=== PATIENT | female | born 1950 | race Caucasian/White ===

== ENCOUNTER 2020-02-11 08:54 | Outpatient (REF) | payer MEDICARE, SELFPAY | END 2020-02-11 08:55 | disposition home or self-care (01) | LOC: HO.MDS 08:54 | PROVIDERS: PCP Family Medicine; Visit Provider Hospitalist | DX: D80.1 Nonfamilial hypogammaglobulinemia (principal) | CPT/HCPCS: 96365; 96366; J1561 ==

== ENCOUNTER 2020-03-01 15:45 | Outpatient (REF) | payer MEDICARE, SELFPAY | END 2020-03-01 15:46 | disposition home or self-care (01) | LOC: HO.LAB 15:45 | PROVIDERS: PCP Family Medicine; Visit Provider Internal Medicine | DX: Z20.828 Contact with and (suspected) exposure to other viral communicable diseases (principal) | CPT/HCPCS: 87635 ==

== ENCOUNTER 2020-03-04 11:43 | Outpatient (REF) | payer MEDICARE, SELFPAY | END 2020-03-04 11:44 | disposition home or self-care (01) | LOC: HO.MDS 11:43 | PROVIDERS: PCP Family Medicine; Visit Provider Hospitalist | DX: D80.1 Nonfamilial hypogammaglobulinemia (principal) | CPT/HCPCS: 96365; 96366; J1561 ==

== ENCOUNTER 2020-03-24 08:39 | Outpatient (REF) | payer MEDICARE, SELFPAY | END 2020-03-24 08:40 | disposition home or self-care (01) | LOC: HO.MDS 08:39 | PROVIDERS: PCP Family Medicine; Visit Provider Hospitalist | DX: D80.1 Nonfamilial hypogammaglobulinemia (principal) | CPT/HCPCS: 96365; 96366; J1561 ==

== ENCOUNTER 2020-04-08 20:08 | Inpatient (IN) | payer MEDICARE, SELFPAY ==
[2020-04-08 20:35] VITALS: BP 142/65; PULSE 94; RESP 18; TEMP 39; O2SAT 92; BMI 42.9
--- NOTE | 2020-04-08 21:01 | ECG_ITS ---
Test Reason : FLU LIKE SYMPTOMS Blood Pressure : / mmHG Vent. Rate : 095 BPM Atrial Rate : 095 BPM P-R Int : 140 ms QRS Dur : 074 ms QT Int : 350 ms P-R-T Axes : 043 -11 033 degrees QTc Int : 439 ms Normal sinus rhythm Possible Left atrial enlargement Borderline ECG When compared with ECG of 06-JUN-2010 15:45, No significant change was found Referred By: Sharron Membreno Electronically Signed By:FOUZIA PITTS MD
--- NOTE | 2020-04-08 21:01 | XR_ITS ---
EXAMINATION: XR CHEST CLINICAL INFORMATION: Shortness of breath COMPARISON: Chest x-ray 06/06/2010 TECHNIQUE: Frontal view of the chest was obtained. 9:07 PM FINDINGS: There is a region of irregular focal parenchymal airspace opacity in the right upper lobe. Possible peripheral small infiltrate near the right cuspid angle. There is a small subtle airspace opacity in the left lung near the left lung apex. There are no large pleural effusions. There is no pulmonary vascular congestion. XR/XR chest 1V IMPRESSION: Multifocal airspace opacities bilateral. Findings suspicious of pneumonia including Covid 19.
--- NOTE | 2020-04-08 21:13 | ED.FEVER ---
HPI - Fever General Chief Complaint: Fever Stated Complaint: Flu like symptpoms Time Seen by Provider: 04/08/20 20:59 Source: patient Mode of arrival: ambulatory Limitations: no limitations History of Present Illness HPI Narrative: This is a 69-year-old female who has a significant past medical history of immunodeficiency and receives gammaglobulin weekly who presents with 3-4 days of intermittent fevers with a T-max of 103? that she states has been responsive to Tylenol but recurs, this is also been associated with increasing shortness of breath to the point that yesterday she was becoming short of breath just walking to the bathroom. She denies any recent productive cough with increase of sputum, denies any GI symptoms or symptoms and states that her oxygen at home is typically 96-98% ( she is a known COPD patient). In addition, she states that she has not had a pneumonia for 5-6 years. of note, patient has been tested negative for COVID-19 on 12/21, 03/01. Related Data Home Medications Medication Instructions Recorded Confirmed celecoxib 1 cap PO DAILY 04/08/20 04/08/20 immune globul G-gly-IgA avg 46 See Rx Instructions .ROUTE .COMPLEX 04/08/20 04/08/20 [Gamunex-C] omeprazole 1 cap PO DAILY 04/08/20 04/08/20 Previous Rx's Medication Instructions Recorded atenolol 25 mg tablet 25 mg PO DAILY 90 Days #90 tab 02/18/20 hydrochlorothiazide 25 mg tablet 25 mg PO DAILY 90 Days #90 tab 02/18/20 Allergies Allergy/AdvReac Type Severity Reaction Status Date / Time cephalexin [Keflex] Allergy Unknown anaphylaxis Unverified 11/06/19 00:00 glycine [From GAMMAGARD S/D] Allergy Unknown WEAKNESS Unverified 01/22/20 15:15 IgA less than or equal to 50 Allergy Unknown WEAKNESS Unverified 01/22/20 15:15 mcg/mL [From GAMMAGARD S/D] immune globulin,gamma (IgG) Allergy Unknown WEAKNESS Unverified 01/22/20 15:15 human [From GAMMAGARD S/D] Penicillins [PENICILLINS] AdvReac Unknown DIARRHEA Unverified 01/22/20 15:15 From KEFLEX Allergy Unknown ANAPHYLAXIS Uncoded 01/22/20 15:15 GAMAGUARD Allergy Unknown Uncoded 10/31/19 00:00 Review of Systems Review of Systems: Pertinent positives and negatives as stated in HPI and 10 point review of systems is otherwise negative. [facility] Past Medical History Source: nursing notes reviewed Medical History (Updated 04/09/20 @ 01:31 by Syed Arambula MD) COPD (chronic obstructive pulmonary disease) Hypertension Social History Social History Smoked in Last 30 Days: No Use of substances other than those prescribed or required for medical reasons: No Advance Directives: No Advance Directives Information Provided: Yes Physical Exam Vital Signs: Vital Signs: Last Vital Signs Temp 99.9 F 04/09/20 01:00 Pulse 86 04/09/20 01:00 Resp 19 04/09/20 01:00 BP 125/56 L 04/09/20 01:00 Pulse Ox 97 04/09/20 01:00 Body Mass Index 42.9 VITAL SIGNS: Reviewed. GENERAL: Well developed, well nourished, in no acute distress. HEAD: Normocephalic/atraumatic, EYES: PERRLA, EOMI intact without pain, no nystagmus/pallor/icterus noted EARS: Ext canals without abnormality, TMs non-bulging and non-erythematous NOSE: Nares patent bilateral OROPHARYNX: no oral lesions noted, posterior pharynx clear and non-erythematous without noted tonsillar enlargement/erythema/exudates NECK: Supple, no adenopathy LUNGS: + adventitious sounds , no tachypnea or accessory muscle use. SpO2<92> CARDIOVASCULAR: Regular rate and rhythm without noted murmurs, no JVD or lower extremity edema. ABDOMEN: Soft, non-tender, non-distended with bowel sounds. No rigidity. No guarding. No palpable masses or hernias noted MUSCULOSKELETAL: No tenderness, deformities, or effusions noted on gross inspection. EXTREMITIES: No cyanosis, clubbing or edema. SKIN: Inspection of the skin reveals no rashes, ulcerations, jaundice, pallor, or petechiae. NEUROLOGIC: Alert and oriented x 4. Strength and sensation to light touch were grossly intact x 4. Course Course Course Narrative: This is a 69-year-old female with history and clinical presentation significant for immune deficiency requiring immune globulin therapy and suspect that this patient has either viral or bacterial pneumonia with observed hypoxia in relation to her baseline. Patient is currently meeting sepsis criteria and will be treated with blood cultures, lactic acid, antibiotics, but does not qualify for IV fluids at this time. on review of all investigations patient's SIRS response is most consistent with viral as there is a positive COVID-19 test and chest x-ray results which are consistent with COVID-19 infection. Otherwise, urinalysis is negative under no acute findings on chemistries. This case was discussed with the inpatient hospitalist team who is agreeable for admission. MDM - Fever Lab Data Result diagrams: 04/08/20 21:39 04/08/20 21:39 Labs: Lab Results 04/08/20 04/08/20 04/08/20 Range/Units 21:38 21:39 21:39 WBC 5.9 (4.8-10.8) X10*3/uL RBC 5.20 (4.20-5.50) X10*6/uL Hgb 13.1 (12.0-16.0) g/dl Hct 42.8 (37-47) % MCV 82.3 (80-98) fL MCH 25.2 L (27.0-33.0) pg MCHC 30.6 L (31.0-35.0) g/dl RDW 15.4 (11.0-16.0) % Plt Count 216 (160-400) X10*3/uL MPV 9.6 (9.4-12.3) fL Immature Gran % (Auto) 0.3 (0.0-0.4) % Neut % (Auto) 66.6 (45-73) % Lymph % (Auto) 26.6 (20-40) % [place] % (Auto) 6.3 (2-11) % Eos % (Auto) 0.0 (0-4) % Baso % (Auto) 0.2 (0-2) % Lymph # (Auto) 1.6 (1.2-4.9) X10*3/uL [place] # (Auto) 0.4 (0.1-1.2) X10*3/uL Eos # (Auto) 0.0 (0.0-0.4) X10*3/uL Baso # (Auto) 0.0 (0.0-0.2) X10*3/uL Abs Immat Gran (auto) 0.02 (0.00-0.03) X10*3/uL Absolute Neuts (auto) 3.9 (2.0-8.3) X10*3/uL Absolute Nucleated RBC 0.000 (0.0-0.012) X10*3/uL Nucleated RBC % (auto) 0.0 (0.0-0.2) /100WBC Sodium 140 (135-145) mmol/L Potassium 3.7 (3.3-5.1) mmol/l Chloride 98 (96-108) mmol/L Carbon Dioxide 29 (22-29) mmol/L Anion Gap 17 (12-20) BUN 22 H (9-16) mg/dL Creatinine 0.84 (0.5-1.4) mg/dL Estim Creat Clear Calc 79.1 Estimated GFR > 60 Random Glucose 109 (60-115) mg/dL Lactic Acid 1.8 (0.5-2.0) mmol/L Calcium 8.6 (8.4-10.2) mg/dL Total Bilirubin 1.2 H (0.0-1.0) mg/dL AST 19 (5-31) U/L ALT 29 (0-31) U/L Alkaline Phosphatase 106 (39-117) U/L Lactate Dehydrogenase 250 H (122-220) U/L C-Reactive Protein 4.86 H (< or = 0.50) mg/dL Total Protein 7.1 (6.5-8.0) g/dL Albumin 4.2 (3.5-5.0) g/dL Procalcitonin ng/mL Urine Color Urine Appearance Urine pH (5.0-8.0) Ur Specific [place] (1.005-1.025) Urine Protein (NEG-TRACE) MG/DL Urine Glucose (UA) (NEG) MG/DL Urine Ketones (NEG) MG/DL Urine Blood (NEG) Urine Nitrite (NEG) Ur Leukocyte Esterase (NEG) Coronavirus (PCR) (Negative) Influenza Type A (PCR) (Negative) Influenza Type B (PCR) (Negative) RSV RNA Qual (PCR) (Negative) 04/08/20 04/08/20 04/08/20 Range/Units 21:39 21:39 22:45 WBC (4.8-10.8) X10*3/uL RBC (4.20-5.50) X10*6/uL Hgb (12.0-16.0) g/dl Hct (37-47) % MCV (80-98) fL MCH (27.0-33.0) pg MCHC (31.0-35.0) g/dl RDW (11.0-16.0) % Plt Count (160-400) X10*3/uL MPV (9.4-12.3) fL Immature Gran % (Auto) (0.0-0.4) % Neut % (Auto) (45-73) % Lymph % (Auto) (20-40) % [place] % (Auto) (2-11) % Eos % (Auto) (0-4) % Baso % (Auto) (0-2) % Lymph # (Auto) (1.2-4.9) X10*3/uL [place] # (Auto) (0.1-1.2) X10*3/uL Eos # (Auto) (0.0-0.4) X10*3/uL Baso # (Auto) (0.0-0.2) X10*3/uL Abs Immat Gran (auto) (0.00-0.03) X10*3/uL Absolute Neuts (auto) (2.0-8.3) X10*3/uL Absolute Nucleated RBC (0.0-0.012) X10*3/uL Nucleated RBC % (auto) (0.0-0.2) /100WBC Sodium (135-145) mmol/L Potassium (3.3-5.1) mmol/l Chloride (96-108) mmol/L Carbon Dioxide (22-29) mmol/L Anion Gap (12-20) BUN (9-16) mg/dL Creatinine (0.5-1.4) mg/dL Estim Creat Clear Calc Estimated GFR Random Glucose (60-115) mg/dL Lactic Acid (0.5-2.0) mmol/L Calcium (8.4-10.2) mg/dL Total Bilirubin (0.0-1.0) mg/dL AST (5-31) U/L ALT (0-31) U/L Alkaline Phosphatase (39-117) U/L Lactate Dehydrogenase (122-220) U/L C-Reactive Protein (< or = 0.50) mg/dL Total Protein (6.5-8.0) g/dL Albumin (3.5-5.0) g/dL Procalcitonin 0.03 ng/mL Urine Color YELLOW Urine Appearance CLEAR Urine pH 6.0 (5.0-8.0) Ur Specific [place] 1.020 (1.005-1.025) Urine Protein NEG (NEG-TRACE) MG/DL Urine Glucose (UA) NEG (NEG) MG/DL Urine Ketones NEG (NEG) MG/DL Urine Blood NEG (NEG) Urine Nitrite NEG (NEG) Ur Leukocyte Esterase NEG (NEG) Coronavirus (PCR) POSITIVE A (Negative) Influenza Type A (PCR) NEGATIVE (Negative) Influenza Type B (PCR) NEGATIVE (Negative) RSV RNA Qual (PCR) NEGATIVE (Negative) ECG Data ECG #1: Attestation: I personally reviewed and interpreted this ECG as follows: Prior ECG tracings: not available for review Interpretation: Normal sinus rhythm, HR -95, no evidence of acute ischemia, HI/QRS/QTC are within normal limits. Discharge Plan Discharge Clinical Impression: Pneumonia due to COVID-19 virus, Hypoxia Patient Disposition: Admitted As Inpatient
[2020-04-08 21:49] LABS: Basophils Percent Auto 0.2 % (0-2); Hematocrit 42.8 % (37-47); Hemoglobin 13.1 g/dl (12.0-16.0); Imm Gran Abs Auto 0.02 X10*3/uL (0.00-0.03); Imm Gran Pct Auto 0.3 % (0.0-0.4); Lymphocytes Absolute Auto 1.6 X10*3/uL (1.2-4.9); Lymphocytes Percent Auto 26.6 % (20-40); Mean Corpuscular HGB Conc 30.6 g/dl (31.0-35.0); Mean Corpuscular Hemoglobin 25.2 pg (27.0-33.0); Mean Corpuscular Volume 82.3 fL (80-98); Mean Platelet Volume 9.6 fL (9.4-12.3); Monocytes Absolute Auto 0.4 X10*3/uL (0.1-1.2); Monocytes Percent Auto 6.3 % (2-11); Neutrophils Absolute Auto 3.9 X10*3/uL (2.0-8.3); Neutrophils Percent Auto 66.6 % (45-73); Platelet Count 216 X10*3/uL (160-400); Red Cell Distribution Width 15.4 % (11.0-16.0); White Blood Count 5.9 X10*3/uL (4.8-10.8)
[2020-04-08 21:50] LABS: MANUAL DIFF FLAG NO
[2020-04-08] MEDS: levoFLOXacin/D5W 750 MG/150 ML PIGGYBACK 100 MG IV (21:54)
[2020-04-08] MEDS: Acetaminophen 325 MG TABLET 975 MG PO (21:54)
[2020-04-08 22:00] VITALS: BP 154/72; PULSE 100; RESP 16; TEMP 38.9; O2SAT 94
[2020-04-08 22:06] LABS: Lactic Acid 1.8 mmol/L (0.5-2.0)
[2020-04-08 22:12] LABS: Alanine Aminotransferase 29 U/L (0-31); Albumin Level 4.2 g/dL (3.5-5.0); Alkaline Phosphatase 106 U/L (39-117); Anion Gap 17 (12-20); Aspartate Amino Transferase 19 U/L (5-31); Bilirubin Total 1.2 mg/dL (0.0-1.0); Blood Urea Nitrogen 22 mg/dL (9-16); Calcium 8.6 mg/dL (8.4-10.2); Carbon Dioxide 29 mmol/L (22-29); Chloride 98 mmol/L (96-108); Creatinine Clr Calc Pharmacy 79.1; Estimated Glomerular Filt Rate > 60; Glucose Random 109 mg/dL (60-115); Potassium 3.7 mmol/l (3.3-5.1); Sodium 140 mmol/L (135-145); Total Protein 7.1 g/dL (6.5-8.0)
[2020-04-08 22:26] LABS: Influenza A PCR NEGATIVE (Negative); Influenza B PCR NEGATIVE (Negative); Resp Syncy Virus RNA Qual PCR NEGATIVE (Negative); SARS COV2 PCR INHOUSE POSITIVE (Negative)
[2020-04-08 22:57] LABS: Glucose Urine UA NEG (NEG); Leukocyte Esterase Urine NEG (NEG); Nitrite Urine NEG (NEG); Urine Blood NEG (NEG); Urine Ketones NEG (NEG); Urine Protein NEG (NEG-TRACE)
[2020-04-08 23:07] LABS: Appearance Urine CLEAR; Color Urine YELLOW
[2020-04-09] VITALS (11 sets, daily range): BP systolic 110–149; BP diastolic 40–69; PULSE 63–93; RESP 15–19; TEMP 36.8–39.5; O2SAT 91–97; BMI 42.9
[2020-04-09 00:29] LABS: C Reactive Protein 4.86 mg/dL (< or = 0.50); Lactate Dehydrogenase 250 U/L (122-220)
[2020-04-09 00:53] LABS: Procalcitonin 0.03 ng/mL
--- NOTE | 2020-04-09 01:23 | P.HPHOSP_ITS ---
History of Present Illness Date of Service: 04/09/20 Chief Complaint: Malaise 69 y/o female with PMHX of HTN. GERD and Aganmaglobulinemia who presented from home given feeling Malaise . Per history provided by the patient, for the past 2 days has been feeling not like herself with on and off episodes of fever and chills, reporting drenching sweats at night . Patient denies any chest pain, SOB, nasuea or vomiting. Has a PMHX of agamflobulinemia and has been getting infusion shots of Gamunex (Last time 1 week ago, due next sunday). On presentation to the ED patient was found to be saturating 90-91% on room air, 2 episodes of 102.1 fever, elevated CRP and LDH, Covid 19 infection positive. CXR Bilateral opacities concerning for covid pneumonia. Pateint was given one dose of Levaquin per ED and decision for admission was given. Patient was seen and evaluated at the bedside, laying down in bed in no acute distress. ROS as above otherwise negative. Physical exam unremarkable. PMHX: HTN, GERD, Agammaglobulinemia PSx: none Toxic habits: No hx of alcohol abuse, smoking or IVDA Review of Systems Constitutional: Constitutional: Reports as per [facility] Medical History COPD (chronic obstructive pulmonary disease) Hypertension Functional capacity: independent ambulation Social History Smoked in Last 30 Days: No Use of substances other than those prescribed or required for medical reasons: No Advance Directives: No Advance Directives Information Provided: Yes Meds Allergies Allergy/AdvReac Type Severity Reaction Status Date / Time cephalexin [Keflex] Allergy Unknown anaphylaxis Unverified 11/06/19 00:00 glycine [From GAMMAGARD S/D] Allergy Unknown WEAKNESS Unverified 01/22/20 15:15 IgA less than or equal to 50 Allergy Unknown WEAKNESS Unverified 01/22/20 15:15 mcg/mL [From GAMMAGARD S/D] immune globulin,gamma (IgG) Allergy Unknown WEAKNESS Unverified 01/22/20 15:15 human [From GAMMAGARD S/D] Penicillins [PENICILLINS] AdvReac Unknown DIARRHEA Unverified 01/22/20 15:15 From KEFLEX Allergy Unknown ANAPHYLAXIS Uncoded 01/22/20 15:15 GAMAGUARD Allergy Unknown Uncoded 10/31/19 00:00 Home Medications Medication Instructions Recorded Confirmed Type celecoxib 1 cap PO DAILY 04/08/20 04/08/20 History immune globul G-gly-IgA avg 46 See Rx Instructions .ROUTE .COMPLEX 04/08/20 04/08/20 History [Gamunex-C] omeprazole 1 cap PO DAILY 04/08/20 04/08/20 History Physical Exam Vital Signs and Narrative: Vital Signs: Last Vital Signs Temp 99.9 F 04/09/20 01:00 Pulse 86 04/09/20 01:00 Resp 19 04/09/20 01:00 BP 125/56 L 04/09/20 01:00 Pulse Ox 97 04/09/20 01:00 Body Mass Index 42.9 Const: General: cooperative, comfortable and no acute distress Orientation/consciousness: oriented to person, oriented to place and oriented to time HENMT: Head: Yes normal to inspection Eyes: General: appearance normal, both eyes and all related structures Neck: Yes normal visual inspection Chest: Chest palpation & inspection: normal inspection of the chest Resp: Effort & Inspection: normal respiratory effort Auscultation: clear to auscultation bilaterally Cardio: Jugular venous distension: no JVD Rate: regular rate Rhythm: regular rhythm Heart sounds: S1 normal heart sound present and S2 normal heart sound present GI: Inspection: Yes normal to inspection Skin: General skin exam: no rashes or lesions noted Neuro: General: oriented to person, oriented to place and oriented to time Cognition (Neuro): normal cognition Results Labs CBC and Chem 7: 04/08/20 21:39 04/08/20 21:39 Labs: Laboratory Results - last 24 hr 04/08/20 04/08/20 04/08/20 21:38 21:39 21:39 MCV 82.3 MCH 25.2 L MCHC 30.6 L RDW 15.4 Plt Count 216 MPV 9.6 Immature Gran % (Auto) 0.3 Neut % (Auto) 66.6 Lymph % (Auto) 26.6 [place] % (Auto) 6.3 Eos % (Auto) 0.0 Baso % (Auto) 0.2 Lymph # (Auto) 1.6 [place] # (Auto) 0.4 Eos # (Auto) 0.0 Baso # (Auto) 0.0 Abs Immat Gran (auto) 0.02 Absolute Neuts (auto) 3.9 Absolute Nucleated RBC 0.000 Nucleated RBC % (auto) 0.0 Anion Gap 17 Estim Creat Clear Calc 79.1 Estimated GFR > 60 Random Glucose 109 Lactic Acid 1.8 Calcium 8.6 Total Bilirubin 1.2 H AST 19 ALT 29 Alkaline Phosphatase 106 Lactate Dehydrogenase 250 H C-Reactive Protein 4.86 H Total Protein 7.1 Albumin 4.2 Procalcitonin Urine Color Urine Appearance Urine pH Ur Specific [place] Urine Protein Urine Glucose (UA) Urine Ketones Urine Blood Urine Nitrite Ur Leukocyte Esterase Coronavirus (PCR) Influenza Type A (PCR) Influenza Type B (PCR) RSV RNA Qual (PCR) 04/08/20 04/08/20 04/08/20 21:39 21:39 22:45 MCV MCH MCHC RDW Plt Count MPV Immature Gran % (Auto) Neut % (Auto) Lymph % (Auto) [place] % (Auto) Eos % (Auto) Baso % (Auto) Lymph # (Auto) [place] # (Auto) Eos # (Auto) Baso # (Auto) Abs Immat Gran (auto) Absolute Neuts (auto) Absolute Nucleated RBC Nucleated RBC % (auto) Anion Gap Estim Creat Clear Calc Estimated GFR Random Glucose Lactic Acid Calcium Total Bilirubin AST ALT Alkaline Phosphatase Lactate Dehydrogenase C-Reactive Protein Total Protein Albumin Procalcitonin 0.03 Urine Color YELLOW Urine Appearance CLEAR Urine pH 6.0 Ur Specific [place] 1.020 Urine Protein NEG Urine Glucose (UA) NEG Urine Ketones NEG Urine Blood NEG Urine Nitrite NEG Ur Leukocyte Esterase NEG Coronavirus (PCR) POSITIVE A Influenza Type A (PCR) NEGATIVE Influenza Type B (PCR) NEGATIVE RSV RNA Qual (PCR) NEGATIVE Imaging Radiologist's Impressions: Impressions Chest X-Ray 04/08/20 21:01 IMPRESSION: Multifocal airspace opacities bilateral. Findings suspicious of pneumonia including Covid 19. Assessment and Plan (1) Pneumonia due to COVID-19 virus: Status: Acute Isolation IMC Continue with Levaquin as ordered for gram neg coverage. Monitor EKG for QTc. Follow up Respiratory panel Follow up Bcx O2 therapy and titrate off as tolerated Infectious disease consult in the am (2) Hypoxia: Status: Acute plan as above (3) Hypertension: Status: Acute continue with home BP meds (4) GERD (gastroesophageal reflux disease): Status: Acute continue with PPI home dose (5) Agammaglobulinemia: Status: Acute Infusion due next sunday
[2020-04-09] MEDS: Heparin Sodium,Porcine 5,000 UNIT/ML VIAL 5000 UNIT SUBCUT ×3 (03:10→19:59)
[2020-04-09 03:40] LABS: Adenovirus PCR Not Detected (Not Detect.); Bordetella parapertussis PCR Not Detected (Not Detect.); Bordetella pertussis PCR Not Detected (Not Detect.); Chlamydia pneumoniae PCR Not Detected (Not Detect.); Coronavirus 229E PCR Not Detected (Not Detect.); Coronavirus HKU1 PCR Not Detected (Not Detect.); Coronavirus NL63 PCR Not Detected (Not Detect.); Coronavirus OC43 PCR Not Detected (Not Detect.); Human metapneumovirus PCR Not Detected (Not Detect.); Influenza A PCR Not Detected (Not Detect.); Influenza B PCR Not Detected (Not Detect.); Mycoplasma pneumoniae PCR Not Detected (Not Detect.); Parainfluenza 1 PCR Not Detected (Not Detect.); Parainfluenza 2 PCR Not Detected (Not Detect.); Parainfluenza 3 PCR Not Detected (Not Detect.); Parainfluenza 4 PCR Not Detected (Not Detect.); RSV PCR Not Detected (Not Detect.); Rhino/Enterovirus PCR Not Detected (Not Detect.)
[2020-04-09] MEDS: levoFLOXacin/D5W 500 MG/100 ML PIGGYBACK 100 MG IV (05:41)
[2020-04-09 05:46] LABS: MANUAL DIFF FLAG NO
[2020-04-09 06:02] LABS: Basophils Percent Auto 0.2 % (0-2); Hematocrit 44.3 % (37-47); Hemoglobin 13.5 g/dl (12.0-16.0); Imm Gran Abs Auto 0.02 X10*3/uL (0.00-0.03); Imm Gran Pct Auto 0.3 % (0.0-0.4); Lymphocytes Absolute Auto 1.7 X10*3/uL (1.2-4.9); Lymphocytes Percent Auto 29.5 % (20-40); Mean Corpuscular HGB Conc 30.5 g/dl (31.0-35.0); Mean Corpuscular Hemoglobin 24.9 pg (27.0-33.0); Mean Corpuscular Volume 81.7 fL (80-98); Mean Platelet Volume 9.4 fL (9.4-12.3); Monocytes Absolute Auto 0.5 X10*3/uL (0.1-1.2); Monocytes Percent Auto 9.1 % (2-11); Neutrophils Absolute Auto 3.5 X10*3/uL (2.0-8.3); Neutrophils Percent Auto 60.9 % (45-73); Platelet Count 229 X10*3/uL (160-400); Red Blood Count 5.42 X10*6/uL (4.20-5.50); Red Cell Distribution Width 15.4 % (11.0-16.0); White Blood Count 5.7 X10*3/uL (4.8-10.8)
[2020-04-09 06:26] LABS: Anion Gap 18 (12-20); Blood Urea Nitrogen 22 mg/dL (9-16); Calcium 8.5 mg/dL (8.4-10.2); Carbon Dioxide 27 mmol/L (22-29); Chloride 97 mmol/L (96-108); Estimated Glomerular Filt Rate > 60; Glucose Random 105 mg/dL (60-115); Sodium 138 mmol/L (135-145)
[2020-04-09] MEDS: 0.9 % Sodium Chloride Flush 3 ML SYRINGE IVFLUSH ×3 (07:36→23:21)
[2020-04-09] MEDS: Acetaminophen 325 MG TABLET 650 MG PO ×2 (07:36→18:38)
[2020-04-09] MEDS: atenoloL 25 MG TABLET PO (08:02)
[2020-04-09] MEDS: Celecoxib 200 MG CAPSULE PO (08:02)
[2020-04-09] MEDS: hydroCHLOROthiazide 25 MG TABLET PO (08:02)
[2020-04-09] MEDS: Omeprazole 40 MG CAPSULE.DR PO (08:03)
--- NOTE | 2020-04-09 09:45 | PM.EVENT ---
Event Note Date of Service: 04/09/20 Event Note: Patient seen and examined. 69/F with covid associated wth viral sepsis and pneumonia, remains febrile but no hypoxia. Plan:Empirc levaquin. Tyelenol for fever. Dexamethasone if requires oxygen, anticipate home soon.
--- NOTE | 2020-04-09 09:50 | MHC.CDI.CONC ---
CDI Concurrent Query Service Date: 04/09/20 Documentation Clarification: Please clarify if you are treating a probable/suspected/likely or confirmed: Viral Sepsis due to COVID 19 No Viral Sepsis PLEASE DO NOT DELETE/MODIFY EXISTING CONTENT Additional information is needed in order to code to the highest accuracy and appropriate Severity of Illness (SOI). Please clarify the information noted below in your progress notes and discharge summary. Risk Factors/Clinical Indicators/Treatments 69 year old female admitted with fever, flu like symptoms, SOB, SAT 90-91% room air T102.1, P 100, RR 16-19, BP 125/56 LA 1.8 WBC 5.9 Diagnosis Pneumonia due to COVID 19, Hypoxia per H&P CDS: Keena Merlos RN Contact Number: [phone] Please Review the information above and exercise your independent professional judgment in responding to the query. If you concur, pleas document in the PROGRESS NOTES and DISCHARGE SUMMARY. If you do not agree with the query, please document in the query above. THIS QUERY IS PART OF THE PERMANENT MEDICAL RECORD
[2020-04-09 11:12] LABS: SARS-CoV-2 PCR Detected (Not Detect.)
--- NOTE | 2020-04-09 16:05 | MHC.CM.PN ---
Attempted to meet with patient in regards to d/c planning. Patient in the process of receiving nursing care. Spoke with patient's , Alen via telephone at [phone]. Patient lives with Alen, ambulates independently and had no services prior to coming to the hospital. PCP verified. Alen believes he has a copy of patient's HCP. IMM explained and sent via certified mail. Patient is Covid positive. Patient was tested for Covid today. He doesn't anticipate getting his results for about a week. Physical therapy eval may be necessary for home safety when medically stable. Continue to monitor for d/c needs.
[2020-04-09] MEDS: Ibuprofen 600 MG TABLET PO (22:15)
--- NOTE | 2020-04-09 22:39 | PC.NURSE ---
Alert and oriented x 4, febrile the whole shift with some chills. Lung sounds diminished all throughout, sats in the low to mid 90s while in room air. Voided clear yellow urine. She received Tylenol at 1836, temperature rechecked after an hour and it was down to 101.2. Temperature randomly rechecked at past 9pm and it was 103.1, cold packs and ice cold cloth to forehead applied, she refused to have a cold wash on her body. Paged Dr. Wilson, ordered for Ibuprofen. Temperature went down to 102.5 after the said intervention prior to giving Ibuprofen. Patient resting comfortably in bed. Needs were attended. Will continue care plan.
[2020-04-10] VITALS (9 sets, daily range): BP systolic 110–133; BP diastolic 41–58; PULSE 66–100; RESP 14–20; TEMP 36.1–38.8; O2SAT 90–93
[2020-04-10] MEDS: Acetaminophen 325 MG TABLET 650 MG PO (00:08)
[2020-04-10] MEDS: Heparin Sodium,Porcine 5,000 UNIT/ML VIAL 5000 UNIT SUBCUT ×3 (02:43→16:58)
[2020-04-10] MEDS: levoFLOXacin/D5W 500 MG/100 ML PIGGYBACK 100 MG IV (05:26)
--- NOTE | 2020-04-10 06:36 | PC.NURSE ---
CARE ASSUMED 23;15...AWAKE..ALERT..ORIENTED X3....RESPIRATIONS EASY AT REST...SAO2 89-92% ROOM AIR...ASYMPTOMATIC...MILDLY NEVES...DECLINES SUPPLEMENTAL O2...OOB TO BEDSIDE COMMODE STEADY GAIT...DENIES/OFFERS NO COMPLAINTS OVERNIGHT...PRN TYLENOL HS FOR TEMP PER REQUEST
--- NOTE | 2020-04-10 09:07 | HO.PM.IMPN ---
Subjective Subjective Date of Service: 04/10/20 Interval History: Seen in follow-up for acute COVID illness associated with pneumonia and fever. She feels better although she continued to be having intermittent fevers of up to 101. She denies shortness of breath, oxygen saturation has been borderline presently around 90% on room alcohol though it has been reported that he had she has had occasion were oxygen saturation has dropped below 90. Review of Systems Gen: +fever Resp: no sob, +cough CV: no chest, no NEVES, no leg edema Neuro: No confusion Physical Exam Vital Signs: Vital Signs: Last Vital Signs Temp 101.8 F H 04/10/20 05:00 Pulse 93 04/10/20 08:00 Resp 18 04/10/20 08:00 BP 119/41 L 04/10/20 05:00 Pulse Ox 90 L 04/10/20 05:00 Body Mass Index 42.9 Const: General: comfortable Nutritional Appearance: obese Orientation/consciousness: patient oriented x3 Resp: Auscultation: other (normal respiratory effort) Skin: General skin exam: no rashes or lesions noted Neuro: General: patient oriented x3 Cranial nerves: Yes Other cranial nerve findings present (no focal finding) Psych: Other: normal affect Objective Data Current Medications Generic Name Dose Route Start Last Admin Trade Name Freq PRN Reason Stop Dose Admin Acetaminophen 650 mg 04/09/20 18:22 04/10/20 00:08 Acetaminophen 325 Mg Tablet PO 650 mg Q6H PRN Administration Pain, Mild (Pain Scale 1-3) Atenolol 25 mg 04/09/20 09:00 04/09/20 08:02 Atenolol 25 Mg Tablet PO 25 mg DAILY CHARAN Administration Protocol Celecoxib 200 mg 04/09/20 09:00 04/09/20 08:02 Celecoxib 200 Mg Capsule PO 200 mg DAILY CHARAN Administration Dexamethasone 8 mg 04/10/20 07:30 Dexamethasone 2 Mg Tablet PO 04/10/20 07:31 DAILY ONE Heparin Sodium (Porcine) 5,000 unit 04/09/20 02:23 04/10/20 02:43 Heparin Sodium,Porcine 5,000 Unit/Ml Vial SUBCUT 5,000 unit Q8H CHARAN Administration Hydrochlorothiazide 25 mg 04/09/20 09:00 04/09/20 08:02 Hydrochlorothiazide 25 Mg Tablet PO 25 mg DAILY CHARAN Administration Protocol Levofloxacin 500 mg in 100 mls @ 100 mls/hr 04/09/20 06:00 04/10/20 06:44 Levaquin IV Infused Q24H [facility] Infusion Non-Formulary Medication 0 % 04/09/20 01:30 Immune Globul G-Gly-Iga Avg 46 [Gamunex-C] IV .COMPLEX [facility] Omeprazole 40 mg 04/09/20 09:00 04/09/20 08:03 Omeprazole 40 Mg Capsule.Dr PO 40 mg DAILY [facility] Administration Sodium Chloride 3 ml 04/09/20 08:00 04/09/20 23:21 0.9 % Sodium Chloride Flush 3 Ml Syringe IVFLUSH 3 ml QSHIFT [facility] Administration Labs CBC & Chem 7: 04/09/20 05:38 04/09/20 05:38 Microbiology Microbiology Results: Microbiology 04/08/20 21:55 Blood - Venous Blood Culture - Preliminary No growth after 24 hours. 04/08/20 21:39 Blood - Venous Blood Culture - Preliminary No growth after 24 hours. Assessment and Plan (1) Pneumonia due to COVID-19 virus: Status: Acute (2) Hypoxia: Status: Acute (3) Hypertension: Status: Acute (4) GERD (gastroesophageal reflux disease): Status: Acute (5) Agammaglobulinemia: Status: Acute Assessment and Plan: 69/F with agammaglobulinemia, GERD, class 3 obesity here with covid 19 pneumonia, hypoxia, and fever. 1. Acute hypoxic respiratory failure d/t covid 19 PNA-- clinically feel well, but persistent fever. - at dexamethasone 6 mg p.o. daily for total of 10 days. - Oxygen p.r.n. - continue Levaquin for possible superimposed bacterial pneumonia. - Tylenol or Motrin for fever. 2. GERD-- omeprazole 3. hypertension-- continue atenolol and hydrochlorothiazide 4. class 3 obesity -- encourage weight loss as morbid obesity may impact overall well-being And above diagnoses 5. agammaglobulinemia-- immunoglobulin infusion on Wednesdays. Heparin for DVT prophylaxis.
[2020-04-10] MEDS: hydroCHLOROthiazide 25 MG TABLET PO (10:00)
[2020-04-10] MEDS: atenoloL 25 MG TABLET PO (10:00)
[2020-04-10] MEDS: dexAMETHasone 6 MG TABLET PO (10:28)
[2020-04-10] MEDS: 0.9 % Sodium Chloride Flush 3 ML SYRINGE IVFLUSH ×3 (10:29→23:38)
[2020-04-10] MEDS: Omeprazole 40 MG CAPSULE.DR PO (10:29)
[2020-04-10] MEDS: Celecoxib 200 MG CAPSULE PO (10:29)
[2020-04-11] VITALS (7 sets, daily range): BP systolic 93–141; BP diastolic 40–65; PULSE 65–99; RESP 18–20; TEMP 36.9–39.6; O2SAT 94–98
[2020-04-11] MEDS: Heparin Sodium,Porcine 5,000 UNIT/ML VIAL 5000 UNIT SUBCUT ×3 (01:15→19:27)
[2020-04-11] MEDS: Acetaminophen 325 MG TABLET 650 MG PO ×2 (04:12→21:55)
[2020-04-11] MEDS: Omeprazole 40 MG CAPSULE.DR PO (08:22)
[2020-04-11] MEDS: atenoloL 25 MG TABLET PO (08:22)
[2020-04-11] MEDS: levoFLOXacin/D5W 500 MG/100 ML PIGGYBACK 100 MG IV (08:22)
[2020-04-11] MEDS: Celecoxib 200 MG CAPSULE PO (08:22)
[2020-04-11] MEDS: dexAMETHasone 6 MG TABLET PO (08:23)
[2020-04-11] MEDS: 0.9 % Sodium Chloride Flush 3 ML SYRINGE IVFLUSH ×3 (08:23→23:51)
[2020-04-11] MEDS: hydroCHLOROthiazide 25 MG TABLET PO (08:24)
--- NOTE | 2020-04-11 09:12 | P.PNIM_ITS ---
Subjective Subjective Date of Service: 04/11/20 Interval History: Seen in follow-up for acute COVID illness associated with pneumonia and fever. She feels better although she continued to be having intermittent fevers of up to 103. She denies shortness of breath, oxygen saturation is presently around 98% on room. She well in general. She states that under normal circumstances that she gets intermittent fever and take celebrex for that. Review of Systems Gen: +fever Resp: no sob, +cough CV: no chest, no NEVES, no leg edema Neuro: No confusion Constitutional Constitutional: Reports as per HPI Physical Exam Vital Signs: Vital Signs: Last Vital Signs Temp 103.2 F H 04/11/20 03:58 Pulse 99 04/11/20 03:58 Resp 20 04/11/20 03:58 BP 121/60 04/11/20 03:58 Pulse Ox 98 04/11/20 03:58 Body Mass Index 42.9 Const: General: comfortable Nutritional Appearance: obese Orientation/consciousness: patient oriented x3 Resp: Auscultation: other (normal respiratory effort) Skin: General skin exam: no rashes or lesions noted Neuro: General: patient oriented x3 Cranial nerves: Yes Other cranial nerve findings present (no focal finding) Psych: Other: normal affect Objective Data Current Medications Generic Name Dose Route Start Last Admin Trade Name Jeffreyq PRN Reason Stop Dose Admin Acetaminophen 650 mg 04/09/20 18:22 04/11/20 04:12 Acetaminophen 325 Mg Tablet PO 650 mg Q6H PRN Administration Pain, Mild (Pain Scale 1-3) Atenolol 25 mg 04/09/20 09:00 04/11/20 08:22 Atenolol 25 Mg Tablet PO 25 mg DAILY CHARAN Administration Protocol Celecoxib 200 mg 04/09/20 09:00 04/11/20 08:22 Celecoxib 200 Mg Capsule PO 200 mg DAILY CHARAN Administration Dexamethasone 6 mg 04/10/20 10:22 04/11/20 08:23 Dexamethasone 6 Mg Tablet PO 04/19/20 09:01 6 mg DAILY CHARAN Administration Heparin Sodium (Porcine) 5,000 unit 04/09/20 02:23 04/11/20 01:15 Heparin Sodium,Porcine 5,000 Unit/Ml Vial SUBCUT 5,000 unit Q8H CHARAN Administration Hydrochlorothiazide 25 mg 04/09/20 09:00 04/11/20 08:24 Hydrochlorothiazide 25 Mg Tablet PO 25 mg DAILY CHARAN Administration Protocol Levofloxacin 500 mg in 100 mls @ 100 mls/hr 04/09/20 06:00 04/11/20 08:22 Levaquin IV 100 mls/hr Q24H CHARAN Administration Omeprazole 40 mg 04/09/20 09:00 04/11/20 08:22 Omeprazole 40 Mg Capsule.Dr PO 40 mg DAILY CHARAN Administration Sodium Chloride 3 ml 04/09/20 08:00 04/11/20 08:23 0.9 % Sodium Chloride Flush 3 Ml Syringe IVFLUSH 3 ml QSHIFT CHARAN Administration Labs CBC & Chem 7: 04/09/20 05:38 04/09/20 05:38 Microbiology Microbiology Results: Microbiology 04/08/20 21:55 Blood - Venous Blood Culture - Preliminary No growth after 48 hours. 04/08/20 21:39 Blood - Venous Blood Culture - Preliminary No growth after 48 hours. Assessment and Plan (1) Pneumonia due to COVID-19 virus: Status: Acute (2) Hypoxia: Status: Acute (3) Hypertension: Status: Acute (4) GERD (gastroesophageal reflux disease): Status: Acute (5) Agammaglobulinemia: Status: Acute Assessment and Plan: 69/F with agammaglobulinemia, GERD, class 3 obesity here with covid 19 pneumonia, hypoxia, and fever. 1. Acute hypoxic respiratory failure d/t covid 19 PNA-- clinically feel well, b ut persistent fever. Oxygen saturation has improved. - Continue dexamethasone 6 mg p.o. daily for total of 10 days.D2/10 - Oxygen p.r.n., presently doesn't need it - continue Levaquin for possible superimposed bacterial pneumonia. - Tylenol or Motrin for fever. 2. GERD-- omeprazole 3. hypertension, BP is normal . continue atenolol and hydrochlorothiazide 4. class 3 obesity -- encourage weight loss as morbid obesity may impact overall well-being And above diagnoses 5. agammaglobulinemia-- immunoglobulin infusion on Wednesdays. Heparin for DVT prophylaxis.
[2020-04-11] MEDS: Ibuprofen 600 MG TABLET PO ×2 (09:30→23:51)
[2020-04-12] VITALS (7 sets, daily range): BP systolic 103–144; BP diastolic 53–84; PULSE 64–88; RESP 18; TEMP 36.1–38.1; O2SAT 92–94
[2020-04-12] MEDS: Heparin Sodium,Porcine 5,000 UNIT/ML VIAL 5000 UNIT SUBCUT ×3 (01:35→18:40)
[2020-04-12] MEDS: levoFLOXacin/D5W 500 MG/100 ML PIGGYBACK 100 MG IV (06:15)
[2020-04-12] MEDS: dexAMETHasone 6 MG TABLET PO (08:19)
[2020-04-12] MEDS: Acetaminophen 325 MG TABLET 650 MG PO (08:19)
[2020-04-12] MEDS: hydroCHLOROthiazide 25 MG TABLET PO (08:21)
[2020-04-12] MEDS: Omeprazole 40 MG CAPSULE.DR PO (08:21)
[2020-04-12] MEDS: atenoloL 25 MG TABLET PO (08:21)
[2020-04-12] MEDS: 0.9 % Sodium Chloride Flush 3 ML SYRINGE IVFLUSH ×2 (08:21→15:18)
[2020-04-12] MEDS: Celecoxib 200 MG CAPSULE PO (08:21)
--- NOTE | 2020-04-12 14:24 | HO.PM.IMPN ---
Subjective Subjective Date of Service: 04/12/20 Interval History: patient seen in follow-up for COVID-19 infection and high-grade fever, patient feeling better still with low-grade fever , no recurrent fever spikes since yesterday morning. Review of Systems General no headache, no dizziness CVS no chest pain, no palpitation. Respiratory no cough, no sputum production, no respiratory distress. Gastrointestinal no nausea no vomiting, no abdominal pain Physical Exam Vital Signs: Vital Signs: Last Vital Signs Temp 98.7 F 04/12/20 11:23 Pulse 88 04/12/20 11:23 Resp 18 04/12/20 11:23 BP 103/59 L 04/12/20 11:23 Pulse Ox 94 04/12/20 11:23 Body Mass Index 42.9 General no acute distress. Neck is supple no JVD. CVS regular rate rhythm, Respiratory lungs clear to auscultation, no respiratory distress, no wheeze, no rhonchi. Gastrointestinal abdomen soft, nontender, bowel sounds audible. Extremities no clubbing ,cyanosis or edema. Neuro nonfocal,speech clear. Skin no rash Objective Data Current Medications Generic Name Dose Route Start Last Admin Trade Name Freq PRN Reason Stop Dose Admin Acetaminophen 650 mg 04/09/20 18:22 04/12/20 08:19 Acetaminophen 325 Mg Tablet PO 650 mg Q6H PRN Administration Pain, Mild (Pain Scale 1-3) Atenolol 25 mg 04/09/20 09:00 04/12/20 08:21 Atenolol 25 Mg Tablet PO 25 mg DAILY CHARAN Administration Protocol Celecoxib 200 mg 04/09/20 09:00 04/12/20 08:21 Celecoxib 200 Mg Capsule PO 200 mg DAILY CHARAN Administration Dexamethasone 6 mg 04/10/20 10:22 04/12/20 08:19 Dexamethasone 6 Mg Tablet PO 04/19/20 09:01 6 mg DAILY CHARAN Administration Heparin Sodium (Porcine) 5,000 unit 04/09/20 02:23 04/12/20 08:22 Heparin Sodium,Porcine 5,000 Unit/Ml Vial SUBCUT 5,000 unit Q8H CHARAN Administration Hydrochlorothiazide 25 mg 04/09/20 09:00 04/12/20 08:21 Hydrochlorothiazide 25 Mg Tablet PO 25 mg DAILY CHARAN Administration Protocol Levofloxacin 500 mg in 100 mls @ 100 mls/hr 04/09/20 06:00 04/12/20 07:40 Levaquin IV Infused Q24H CHARAN Infusion Ibuprofen 600 mg 04/11/20 09:11 04/11/20 23:51 Ibuprofen 600 Mg Tablet PO 600 mg Q6H PRN Administration Fever Omeprazole 40 mg 04/09/20 09:00 04/12/20 08:21 Omeprazole 40 Mg Capsule. PO 40 mg DAILY CHARAN Administration Sodium Chloride 3 ml 04/09/20 08:00 04/12/20 08:21 0.9 % Sodium Chloride Flush 3 Ml Syringe IVFLUSH 3 ml QSHIFT CHARAN Administration Labs CBC & Chem 7: 04/09/20 05:38 04/09/20 05:38 Microbiology Microbiology Results: Microbiology 04/08/20 21:55 Blood - Venous Blood Culture - Preliminary No growth after 48 hours. 04/08/20 21:39 Blood - Venous Blood Culture - Preliminary No growth after 48 hours. Assessment and Plan (1) Agammaglobulinemia: Status: Acute (2) GERD (gastroesophageal reflux disease): Status: Acute (3) Hypertension: Status: Acute (4) Pneumonia due to COVID-19 virus: Status: Acute (5) Hypoxia: Status: Acute Assessment and Plan: 69/F with agammaglobulinemia, GERD, obesity here with covid 19 pneumonia, hypoxia, and fever. 1. Acute hypoxic respiratory failure d/t covid 19 PNA-- oxygenation improved currently on room air with stable oxygenation - Continue dexamethasone 6 mg p.o. daily for total of 10 days.D3/10 will transition to by mouth dexamethasone upon discharge - continue Levaquin for possible superimposed bacterial pneumonia. - patient had fever up to 103 yesterday morning will continue to monitor for high-grade fevers, patient has history of cyclic low-grade fevers ,continue supportive care with Tylenol/Motrin for fever. if no further fever spikes in next 24 hours will discharge home. Encourage ambulation. 2. GERD-- omeprazole 3. hypertension, BP is normal . continue atenolol and hydrochlorothiazide 4. class 3 obesity -- encourage weight loss as morbid obesity may impact overall well-being And above diagnoses 5. 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 Pierre he recommends to hold IVIG infusion this week. Heparin for DVT prophylaxis.
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
[2020-04-13] VITALS: BP 136/63; PULSE 90; RESP 18; TEMP 37.4; O2SAT 94
[2020-04-13] MEDS: 0.9 % Sodium Chloride Flush 3 ML SYRINGE IVFLUSH ×2 (00:51→07:39)
[2020-04-13] MEDS: Acetaminophen 325 MG TABLET 650 MG PO (00:51)
[2020-04-13] MEDS: Heparin Sodium,Porcine 5,000 UNIT/ML VIAL 5000 UNIT SUBCUT (00:52)
[2020-04-13 04:00] VITALS: BP 113/57; PULSE 76; RESP 18; TEMP 37.4; O2SAT 93
[2020-04-13 04:06] VITALS: TEMP 37.4
[2020-04-13] MEDS: levoFLOXacin/D5W 500 MG/100 ML PIGGYBACK 100 MG IV (06:26)
[2020-04-13 07:34] VITALS: BP 114/54; PULSE 96
[2020-04-13] MEDS: Omeprazole 40 MG CAPSULE.DR PO (07:34)
[2020-04-13] MEDS: dexAMETHasone 6 MG TABLET PO (07:34)
[2020-04-13] MEDS: atenoloL 25 MG TABLET PO (07:34)
[2020-04-13] MEDS: hydroCHLOROthiazide 25 MG TABLET PO (07:39)
[2020-04-13 07:40] VITALS: BP 114/54; PULSE 96; RESP 16; TEMP 37.3; O2SAT 93
[2020-04-13] MEDS: Celecoxib 200 MG CAPSULE PO (07:45)
[2020-04-13 11:03] VITALS: BP 99/53; PULSE 64; RESP 16; TEMP 36.4; O2SAT 95
--- NOTE | 2020-04-13 11:25 | MHC.CM.PN ---
Patient has been medically cleared for dc to home today, no services. Second IMM addressed.
--- NOTE | 2020-04-13 16:25 | P.DS_ITS ---
DS: Providers Provider Date of admission: 04/09/20 00:55 Primary care physician: Unknown Physician Consults: 04/09/20 02:23 Consult to Infectious Diseases Routine Consulting Provider: Infectious Disease Reason for consultation: Covid infection Has provider been notified: No DS: Diagnosis Discharge Diagnosis (1) Pneumonia due to COVID-19 virus: Status: Acute Problem details: She is on room air and has no oxygen requirements She has had shortness of breath on arrival and was given Dexamethasone DS: Medications Discharge Medications Home Medications: Home Medications Medication Instructions Recorded Confirmed Gamunex-C See Rx Instructions .ROUTE .COMPLEX 04/08/20 04/08/20 celecoxib 1 cap PO DAILY 04/08/20 04/08/20 omeprazole 1 cap PO DAILY 04/08/20 04/08/20 Previous Rx's Medication Instructions Recorded atenolol 25 mg tablet 25 mg PO DAILY 90 Days #90 tab 02/18/20 hydrochlorothiazide 25 mg tablet 25 mg PO DAILY 90 Days #90 tab 02/18/20 dexamethasone 6 mg PO DAILY #6 tab 04/13/20 levofloxacin 500 mg PO Q24H #2 tab 04/13/20 DS: Summary Hospital Course Hospital Course: history of presenting illness 69 y/o female with PMHX of HTN. GERD and Aganmaglobulinemia who presented from home given feeling Malaise . Per history provided by the patient, for the past 2 days has been feeling not like herself with on and off episodes of fever and chills, reporting drenching sweats at night . Patient denies any chest pain, SOB, nasuea or vomiting. Has a PMHX of agamflobulinemia and has been getting infusion shots of Gamunex (Last time 1 week ago, due next sunday). On presentation to the ED patient was found to be saturating 90-91% on room air, 2 episodes of 102.1 fever, elevated CRP and LDH, Covid 19 infection positive. CXR Bilateral opacities concerning for covid pneumonia. Pateint was given one dose of Levaquin per ED and decision for admission was given. Patient was seen and evaluated at the bedside, laying down in bed in no acute distress. ROS as above otherwise negative. Physical exam unremarkable. PMHX: HTN, GERD, Agammaglobulinemia hospital course 69/F with agammaglobulinemia, GERD, obesity here with covid 19 pneumonia, hypoxia, and fever. 1. Acute hypoxic respiratory failure d/t covid 19 PNA-- patient initially required oxygen by nasal cannula subsequently oxygenation improved currently on room air with stable oxygenation patient treated with dexamethasone now being discharged home on by mouth dexamethasone for total 10 days, patient also treated with Levaquin for superimposed bacterial pneumonia, initially patient had high-grade fevers up to 103 now no fever spikes in last 48 hours patient has history of cyclic low-grade fevers. 2. In regard to history of GERD patient has been continued on omeprazole 3. hypertension, BP is normal continue atenolol and hydrochlorothiazide home dose 4. class 3 obesity -- encourage weight loss as morbid obesity may impact overall well-being . 5. agammaglobulinemia-- immunoglobulin infusion on Wednesdays, case discussed with patient chlorinator operator Dr. Pierre he recommends to hold IVIG infusion this week. Time Spent with Patient Time attestation: Total time spent providing and/or coordinating discharge services: Physical Exam Vital Signs: Vital Signs: Last Vital Signs Temp 97.5 F 04/13/20 11:03 Pulse 64 04/13/20 11:03 Resp 16 04/13/20 11:03 BP 99/53 L 04/13/20 11:03 Pulse Ox 95 04/13/20 11:03 Body Mass Index 42.9 General no acute distress. Neck is supple no JVD. CVS regular rate rhythm Respiratory lungs clear to auscultation, no respiratory distress, no wheeze, no rhonchi. Gastrointestinal abdomen soft, nontender, bowel sounds audible. Extremities edema. Neuro nonfocal,speech clear. Skin no rash DS: Data Data Completed and Pending Labs on day of discharge: 04/08/20 20:59 IV insert/maintain .Now 04/08/20 21:01 ECG 12 lead EKG Stat EKG Documentation DIRECTED XR chest 1V Stat Acetaminophen [Tylenol] 975 mg PO ONCE ONE 04/08/20 21:02 levoFLOXacin/D5W [Levaquin] 750 mg in 150 ml IV ONCE 04/08/20 21:38 Lactic Acid Stat 04/08/20 21:39 C Reactive Protein Stat Complete Blood Count Auto Diff Stat Comprehensive Met. Panel Stat Lactate Dehydrogenase Stat Procalcitonin Stat SARS-CoV2/FLU/RSV Stat 04/08/20 22:45 UA CC w/rflx Micro + Cult Stat 04/09/20 00:16 Add Laboratory Test Stat 04/09/20 00:52 Code Status Routine Transfer Order Routine 04/09/20 02:23 Heparin Sodium,Porcine 5,000 unit SUBCUT Q8H 04/09/20 02:23 Ambulate QSHIFT WHILE AWAKE Cont. Telemetry w/Vital Sign limit Q4HR IV insert/maintain Q4HR Intake and Output QSHIFTE Oxygen administration Nasal Cannula 2 lpm Pulse Oximetry Q4HR Vital Signs Q4HR 04/09/20 03:10 Resp pnl result confirmation Stat Respiratory Panel Stat 04/09/20 05:38 Basic Metabolic Panel Routine Complete Blood Count Auto Diff Routine 04/09/20 06:00 levoFLOXacin/D5W [Levaquin] 500 mg in 100 ml IV Q24H 04/09/20 06:42 Acetaminophen [Tylenol] 650 mg PO ONCE ONE 04/09/20 07:28 Airborne/Contact Precautions ONGOING 04/09/20 08:00 0.9 % Sodium Chloride Flush [NS Flush] 3 ml IVFLUSH QSHIFT 04/09/20 09:00 Celecoxib [CeleBREX] 200 mg PO DAILY Omeprazole [PriLOSEC] 40 mg PO DAILY atenoloL [Tenormin] 25 mg PO DAILY hydroCHLOROthiazide [Microzide] 25 mg PO DAILY 04/09/20 Breakfast Cardiac Diet 04/09/20 18:22 Acetaminophen [Tylenol] 650 mg PO Q6H PRN 04/09/20 21:45 Ibuprofen [Motrin] 600 mg PO ONCE ONE 04/10/20 09:33 dexAMETHasone [Decadron] 8 mg PO DAILY 04/10/20 09:35 dexAMETHasone [Decadron] 8 mg PO DAILY 04/10/20 09:36 dexAMETHasone [Decadron] 6 mg PO DAILY 04/10/20 10:22 dexAMETHasone [Decadron] 6 mg PO DAILY 04/11/20 09:11 Ibuprofen [Motrin] 600 mg PO Q6H PRN 04/14/20 06:00 levoFLOXacin [Levaquin] 500 mg PO Q24H Laboratory Last Values WBC 5.7 X10*3/uL (4.8-10.8) 04/09/20 05:38 RBC 5.42 X10*6/uL (4.20-5.50) 04/09/20 05:38 Hgb 13.5 g/dl (12.0-16.0) 04/09/20 05:38 Hct 44.3 % (37-47) 04/09/20 05:38 MCV 81.7 fL (80-98) 04/09/20 05:38 MCH 24.9 pg (27.0-33.0) L 04/09/20 05:38 MCHC 30.5 g/dl (31.0-35.0) L 04/09/20 05:38 RDW 15.4 % (11.0-16.0) 04/09/20 05:38 Plt Count 229 X10*3/uL (160-400) 04/09/20 05:38 MPV 9.4 fL (9.4-12.3) 04/09/20 05:38 Immature Gran % (Auto) 0.3 % (0.0-0.4) 04/09/20 05:38 Neut % (Auto) 60.9 % (45-73) 04/09/20 05:38 Lymph % (Auto) 29.5 % (20-40) 04/09/20 05:38 Meagher % (Auto) 9.1 % (2-11) 04/09/20 05:38 Eos % (Auto) 0.0 % (0-4) 04/09/20 05:38 Baso % (Auto) 0.2 % (0-2) 04/09/20 05:38 Lymph # (Auto) 1.7 X10*3/uL (1.2-4.9) 04/09/20 05:38 Meagher # (Auto) 0.5 X10*3/uL (0.1-1.2) 04/09/20 05:38 Eos # (Auto) 0.0 X10*3/uL (0.0-0.4) 04/09/20 05:38 Baso # (Auto) 0.0 X10*3/uL (0.0-0.2) 04/09/20 05:38 Abs Immat Gran (auto) 0.02 X10*3/uL (0.00-0.03) 04/09/20 05:38 Absolute Neuts (auto) 3.5 X10*3/uL (2.0-8.3) 04/09/20 05:38 Absolute Nucleated RBC 0.000 X10*3/uL (0.0-0.012) 04/09/20 05:38 Nucleated RBC % (auto) 0.0 /100WBC (0.0-0.2) 04/09/20 05:38 Sodium 138 mmol/L (135-145) 04/09/20 05:38 Potassium 4.0 mmol/l (3.3-5.1) 04/09/20 05:38 Chloride 97 mmol/L (96-108) 04/09/20 05:38 Carbon Dioxide 27 mmol/L (22-29) 04/09/20 05:38 Anion Gap 18 (12-20) 04/09/20 05:38 BUN 22 mg/dL (9-16) H 04/09/20 05:38 Creatinine 0.81 mg/dL (0.5-1.4) 04/09/20 05:38 Estim Creat Clear Calc 82.0 04/09/20 05:38 Estimated GFR > 60 04/09/20 05:38 Random Glucose 105 mg/dL (60-115) 04/09/20 05:38 Lactic Acid 1.8 mmol/L (0.5-2.0) 04/08/20 21:38 Calcium 8.5 mg/dL (8.4-10.2) 04/09/20 05:38 Total Bilirubin 1.2 mg/dL (0.0-1.0) H 04/08/20 21:39 AST 19 U/L (5-31) 04/08/20 21:39 ALT 29 U/L (0-31) 04/08/20 21:39 Alkaline Phosphatase 106 U/L (39-117) 04/08/20 21:39 Lactate Dehydrogenase 250 U/L (122-220) H 04/08/20 21:39 C-Reactive Protein 4.86 mg/dL (< or = 0.50) H 04/08/20 21:39 Total Protein 7.1 g/dL (6.5-8.0) 04/08/20 21:39 Albumin 4.2 g/dL (3.5-5.0) 04/08/20 21:39 Procalcitonin 0.03 ng/mL 04/08/20 21:39 Urine Color YELLOW 04/08/20 22:45 Urine Appearance CLEAR 04/08/20 22:45 Urine pH 6.0 (5.0-8.0) 04/08/20 22:45 Ur Specific [place] 1.020 (1.005-1.025) 04/08/20 22:45 Urine Protein NEG MG/DL (NEG-TRACE) 04/08/20 22:45 Urine Glucose (UA) NEG MG/DL (NEG) 04/08/20 22:45 Urine Ketones NEG MG/DL (NEG) 04/08/20 22:45 Urine Blood NEG (NEG) 04/08/20 22:45 Urine Nitrite NEG (NEG) 04/08/20 22:45 Ur Leukocyte Esterase NEG (NEG) 04/08/20 22:45 Respiratory Panel [place]uffy See Note 04/09/20 03:10 Adenovirus (Rapid PCR) Not Detected (Not Detect.) 04/09/20 03:10 B.pert (TEM-PCR) Not Detected (Not Detect.) 04/09/20 03:10 B.parapertussis DNA PCR Not Detected (Not Detect.) 04/09/20 03:10 C. pneumoniae DNA (PCR) Not Detected (Not Detect.) 04/09/20 03:10 Coronavirus (PCR) POSITIVE (Negative) A 04/08/20 21:39 Coronavirus OC43 (PCR) Not Detected (Not Detect.) 04/09/20 03:10 Coronavirus HKU1 (PCR) Not Detected (Not Detect.) 04/09/20 03:10 Coronavirus 229E (PCR) Not Detected (Not Detect.) 04/09/20 03:10 Coronavirus NL63 (PCR) Not Detected (Not Detect.) 04/09/20 03:10 Human Metapneumovir PCR Not Detected (Not Detect.) 04/09/20 03:10 Influenza A (RT-PCR) Not Detected (Not Detect.) 04/09/20 03:10 Influenza Type A (PCR) NEGATIVE (Negative) 04/08/20 21:39 Influenza B (RT-PCR) Not Detected (Not Detect.) 04/09/20 03:10 Influenza Type B (PCR) NEGATIVE (Negative) 04/08/20 21:39 M. pneumoniae (PCR) Not Detected (Not Detect.) 04/09/20 03:10 Parainfluenza 1 (PCR) Not Detected (Not Detect.) 04/09/20 03:10 Parainfluenza 2 (PCR) Not Detected (Not Detect.) 04/09/20 03:10 Parainfluenza 3 (PCR) Not Detected (Not Detect.) 04/09/20 03:10 Parainfluenza 4 (PCR) Not Detected (Not Detect.) 04/09/20 03:10 RSV (PCR) Not Detected (Not Detect.) 04/09/20 03:10 RSV RNA Qual (PCR) NEGATIVE (Negative) 04/08/20 21:39 Entero/Rhino (PCR) Not Detected (Not Detect.) 04/09/20 03:10 SARS-CoV-2 RNA (RT-PCR) Detected (Not Detect.) A 04/09/20 03:10 Preliminary micro results at discharge 04/08/20 21:55 Blood Culture - Preliminary Blood - Venous No growth after 48 hours. 04/08/20 21:39 Blood Culture - Preliminary Blood - Venous No growth after 48 hours. Discharge Plan Discharge Patient Disposition: Home, Self-Care Referrals: Physician,Unknown [Primary Care Provider] - Discharge Medications: New dexamethasone 6 mg Tablet 6 mg PO DAILY Qty: 6 RF: 0 levofloxacin 500 mg Tablet 500 mg PO Q24H Qty: 2 RF: 0 Continued hydrochlorothiazide 25 mg tablet 25 mg PO DAILY 90 Days Qty: 90 RF: 3 atenolol 25 mg tablet 25 mg PO DAILY 90 Days Qty: 90 RF: 3 celecoxib 200 mg capsule 1 cap PO DAILY RF: 0 omeprazole 40 mg capsule,delayed release(DR/EC) 1 cap PO DAILY RF: 0 Gamunex-C 10 gram/100 mL (10 %) solution See Rx Instructions .ROUTE .COMPLEX RF: 0 Discharge Orders: Discharge Order (Routine); Ordered 04/13/20 Ordered By: Miky Argueta Diet: low fat, low cholesterol Activity on Discharge: As tolerated Discharge Date/Time: 04/13/20 12:24 Visit Report Forms: Patient Portal Discharge page Care Plan Goals: continue isolation for 1 week Health Concerns: take dexamethasone and Levaquin as prescribed Plan of Treatment: follow-up with primary care physician and chlorinator operator
== END 2020-04-13 12:24 | disposition home or self-care (01) | DRG 871 ==
LOC: HO.ED 22:34 → HO.ICU 04-09 01:26 → HO.IMC 04-11 01:14
PROVIDERS: Admitting Provider Internal Medicine; Emergency Provider Student in an Organized Health Care Education/Training Program; Visit Provider Hospitalist
DX: A41.89 Other specified sepsis (principal); U07.1 COVID-19; J12.89 Other viral pneumonia; J96.01 Acute respiratory failure with hypoxia; J44.0 Chronic obstructive pulmonary disease with (acute) lower respiratory infection; D80.1 Nonfamilial hypogammaglobulinemia; Z68.41 Body mass index [BMI] 40.0-44.9, adult; I10 Essential (primary) hypertension; K21.9 Gastro-esophageal reflux disease without esophagitis; E66.9 Obesity, unspecified
CPT/HCPCS: 0241U; 36415; 71045; 80048; 80053; 81003; 83605; 83615; 84145; 85025; 86140; 87040; 87633; 93005; 96365; 96366; 99285; J1956; J8540

== ENCOUNTER 2020-04-23 11:13 | Outpatient (REF) | payer MEDICARE, SELFPAY | END 2020-04-23 11:14 | disposition home or self-care (01) | LOC: HO.MDS 11:13 | PROVIDERS: Visit Provider Hospitalist | DX: D80.1 Nonfamilial hypogammaglobulinemia (principal) | CPT/HCPCS: 96365; 96366; J1561 ==

== ENCOUNTER 2020-05-14 09:36 | Outpatient (REF) | payer MEDICARE, SELFPAY | END 2020-05-14 09:37 | disposition home or self-care (01) | LOC: HO.MDS 09:36 | PROVIDERS: Visit Provider Hospitalist | DX: D80.1 Nonfamilial hypogammaglobulinemia (principal) | CPT/HCPCS: 96365; 96366 ==

== ENCOUNTER 2020-05-31 11:50 | Outpatient (REF) | payer MEDICARE, SELFPAY ==
[2020-05-31 14:45] LABS: Alanine Aminotransferase 28 U/L (0-31); Albumin Level 4.6 g/dL (3.5-5.0); Alkaline Phosphatase 84 U/L (39-117); Anion Gap 19 (12-20); Aspartate Amino Transferase 23 U/L (5-31); Bilirubin Total 1.5 mg/dL (0.0-1.0); Blood Urea Nitrogen 19 mg/dL (9-16); Calcium 9.3 mg/dL (8.4-10.2); Carbon Dioxide 26 mmol/L (22-29); Chloride 102 mmol/L (96-108); Cholesterol 263 mg/dL; Estimated Glomerular Filt Rate > 60; Glucose Fasting 105 mg/dL (60-99); HDL Cholesterol 56 mg/dL; LDL Cholesterol Calculated 168 mg/dl; Potassium 3.9 mmol/l (3.3-5.1); Sodium 143 mmol/L (135-145); Total Protein 7.6 g/dL (6.5-8.0); Triglycerides 195 mg/dL
[2020-05-31 14:48] LABS: Estimated Average Glucose 123 mg/dL; Hemoglobin A1c % 5.9 %; Vitamin D 25-OH Total 10.8 ng/mL (>30)
== END 2020-05-31 11:51 | disposition home or self-care (01) ==
LOC: HO.HMGCLDS 11:50
PROVIDERS: PCP Internal Medicine; Visit Provider Internal Medicine
DX: R73.01 Impaired fasting glucose (principal); E78.2 Mixed hyperlipidemia; I10 Essential (primary) hypertension
CPT/HCPCS: 36415; 80053; 80061; 82306; 83036

== ENCOUNTER 2020-06-04 09:35 | Outpatient (REF) | payer MEDICARE, SELFPAY | END 2020-06-04 09:36 | disposition home or self-care (01) | LOC: HO.MDS 09:35 | PROVIDERS: PCP Family Medicine; Visit Provider Hospitalist | DX: D80.1 Nonfamilial hypogammaglobulinemia (principal) | CPT/HCPCS: 96365; 96366; J1569 ==

== ENCOUNTER 2020-06-24 09:30 | Outpatient (REF) | payer MEDICARE, SELFPAY | END 2020-06-24 09:31 | disposition home or self-care (01) | LOC: HO.MDS 09:30 | PROVIDERS: PCP Family Medicine; Visit Provider Hospitalist | DX: D80.1 Nonfamilial hypogammaglobulinemia (principal) | CPT/HCPCS: 96365; 96366; J1561 ==

== ENCOUNTER → 2020-07-06 10:17 | Outpatient (BNVA) | payer MEDICARE, SELFPAY | PROVIDERS: PCP Internal Medicine; Visit Provider Hospitalist | DX: U07.1 COVID-19 (principal); J12.89 Other viral pneumonia; G47.33 Obstructive sleep apnea (adult) (pediatric); D80.1 Nonfamilial hypogammaglobulinemia; J45.40 Moderate persistent asthma, uncomplicated | CPT/HCPCS: 99212 ==

== ENCOUNTER 2020-07-09 14:10 | Outpatient (REF) | payer MEDICARE, SELFPAY ==
--- NOTE | ~2020-07-09 | XR_ITS ---
EXAMINATION: XR CHEST CLINICAL INFORMATION: Chest pain. COMPARISON: Chest 04/08/2020 TECHNIQUE: 2 views of the chest were obtained. FINDINGS: The lungs are well-expanded and clear of acute process. The heart size and pulmonary vascularity is normal. No gross bony abnormality seen. XR/XR chest 2V IMPRESSION: Unremarkable chest exam. Previously seen multifocal opacities have resolved.
== END 2020-07-09 14:11 | disposition home or self-care (01) ==
LOC: HO.HMGCX 14:10
PROVIDERS: PCP Internal Medicine; Visit Provider Hospitalist
DX: U07.1 COVID-19 (principal); J12.89 Other viral pneumonia
CPT/HCPCS: 71046

== ENCOUNTER 2020-07-14 09:40 | Outpatient (REF) | payer MEDICARE, SELFPAY | END 2020-07-14 09:41 | disposition home or self-care (01) | LOC: HO.MDS 09:40 | PROVIDERS: PCP Family Medicine; Visit Provider Hospitalist | DX: D80.1 Nonfamilial hypogammaglobulinemia (principal) | CPT/HCPCS: 96365; 96366; J1561 ==

== ENCOUNTER 2020-08-04 09:07 | Outpatient (REF) | payer MEDICARE, SELFPAY | END 2020-08-04 09:08 | disposition home or self-care (01) | LOC: HO.MDS 09:07 | PROVIDERS: PCP Family Medicine; Visit Provider Hospitalist | DX: D80.1 Nonfamilial hypogammaglobulinemia (principal) | CPT/HCPCS: 96365; 96366; J1561 ==

== ENCOUNTER 2020-08-17 08:05 | Outpatient (REF) | payer MEDICARE, SELFPAY ==
--- NOTE | ~2020-08-17 | MM_ITS ---
EXAMINATION: MM SCREENING DIGITAL BREAST TOMOSYNTHESIS, BILATERAL CLINICAL INFORMATION: Screening. Asymptomatic. The lifetime risk of breast cancer based on the Tyrer-Cuzick Model is 5%. COMPARISON: Outside mammography 06/27/2012 ([facility]) TECHNIQUE: Digital breast tomosynthesis is performed in both the craniocaudal and mediolateral oblique views along with computer-aided detection (CAD). Synthesized 2D images are generated from the tomosynthesis. Additional exaggerated left CC view is provided. FINDINGS: There are scattered areas of fibroglandular density (ACR BI-RADS breast composition Category b). There is fine fibronodular parenchymal pattern similar to prior outside exam. Small circumscribed nodule mid 3:00 left breast is stable. There is a dermal lesion again seen overlying the right breast mid upper outer quadrant. There is no interval significant mass or architectural abnormality or abnormal calcifications. The axilla are unremarkable. No significant changes. MM/MM tomosynthesis screening BI IMPRESSION: No significant changes from prior outside exam. ASSESSMENT: BI-RADS 2: Benign RECOMMENDATION: Routine annual mammography screening. This patient's information was entered into a reminder system with a target due date for their next mammogram.
--- NOTE | ~2020-08-17 | MM_ITS ---
EXAMINATION: BONE DENSITOMETRY CLINICAL INDICATION: Malignant neoplasm of breast. COMPARISON: None (current study represents initial baseline exam). TECHNIQUE: Using a [employer] DXA System (software version: 13.1) manufactured by [employer], dual-energy x-ray absorptiometry was performed of the lumbar spine and left hip. The images are of good technical quality. Summary results are attached. FINDINGS: AP SPINE L1-L2 (excluding L3 and L4): The data of L1-L4 has been changed to exclude the L3 and L4 vertebral bodies, because degenerative changes at these levels may cause overestimation of lumbar spine density. BMD 1.261 g/cm2, Z-score 1.3, T-score 0.8, normal. LEFT FEMUR, NECK: BMD 0.963 g/cm2, Z-score 0.4, T-score -0.5, normal. LEFT FEMUR, TOTAL: BMD 1.141 g/cm2, Z-score 1.6, T-score 1.1, normal. IDENTIFIED RISK FACTORS: Rheumatoid arthritis, height loss, secondary osteoporosis, menopause. HISTORY OF FRACTURE: None listed. MEDICATIONS: Vitamin D. MM/XR DEXA axial skeleton IMPRESSION: 1. DIAGNOSIS: Normal bone density based on the lowest T-score value of -0.5 in the femoral neck applying World Health Organization criteria. 2. 10-YEAR FRACTURE RISK PREDICTION, FRAX: Major osteoporotic fracture (clinical spine, forearm, hip or shoulder) 7.0%. Hip fracture 0.5%. 3. Treatment Recommendations: NOF guidelines recommend consideration for treatment in postmenopausal women and men age 50 and older presenting with the following: -A hip or vertebral (clinical or morphometric) fracture. -T-score less than or equal to -2.5 at the femoral neck or spine after appropriate evaluation to exclude secondary causes. -Low bone mass at the hip or spine and a 10-year fracture probability by FRAX of greater than or equal to 3% for hip fracture or greater than or equal to 20% for major osteoporotic fracture based on the [place] adapted WHO algorithm. 4. Other Recommendations: All treatment decisions require clinical judgment and consideration of individual patient factors, including patient preferences, comorbidities, previous drug use, risk factors not captured in the FRAX model (e.g. frailty, falls, vitamin D deficiency, increased bone turnover, interval significant decline in bone density) and possible under or overestimation of fracture risk by FRAX. FUTURE SCAN RECOMMENDATION: People with diagnosed cases of osteoporosis or at high risk for fracture should have regular bone mineral density tests. For patients eligible for Medicare, routine testing is allowed once every 2 years. The testing frequency can be increased to one year for patients who have rapidly progressing disease, those who are receiving or discontinuing medical therapy to restore bone mass, or have additional risk factors.
== END 2020-08-17 08:06 | disposition home or self-care (01) ==
LOC: HO.MAMMO 08:05
PROVIDERS: PCP Family Medicine; Visit Provider Internal Medicine
DX: Z13.820 Encounter for screening for osteoporosis (principal); Z78.0 Asymptomatic menopausal state; M06.9 Rheumatoid arthritis, unspecified; R29.890 Loss of height; Z12.31 Encounter for screening mammogram for malignant neoplasm of breast
CPT/HCPCS: 77063; 77067; 77080

== ENCOUNTER 2020-08-19 07:16 | Outpatient (REF) | payer MEDICARE, SELFPAY ==
[2020-08-19 12:10] LABS: Alanine Aminotransferase 27 U/L (0-31); Anion Gap 16 (12-20); Aspartate Amino Transferase 19 U/L (5-31); Blood Urea Nitrogen 30 mg/dL (9-16); Calcium 9.5 mg/dL (8.4-10.2); Carbon Dioxide 29 mmol/L (22-29); Chloride 102 mmol/L (96-108); Cholesterol 301 mg/dL; Estimated Glomerular Filt Rate > 60; Glucose Fasting 100 mg/dL (60-99); HDL Cholesterol 58 mg/dL; LDL Cholesterol Calculated 196 mg/dl; Potassium 4.1 mmol/L (3.3-5.1); Sodium 143 mmol/L (135-145); Triglycerides 237 mg/dL
[2020-08-19 12:17] LABS: Estimated Average Glucose 120 mg/dL; Hemoglobin A1c % 5.8 %
[2020-08-19 12:20] LABS: Vitamin D 25-OH Total 50.7 ng/mL (>30)
== END 2020-08-19 07:17 | disposition home or self-care (01) ==
LOC: HO.HMGCLDS 07:16
PROVIDERS: PCP Internal Medicine; Visit Provider Internal Medicine
DX: E55.9 Vitamin D deficiency, unspecified (principal); E78.2 Mixed hyperlipidemia; I10 Essential (primary) hypertension; R73.01 Impaired fasting glucose; Z78.0 Asymptomatic menopausal state
CPT/HCPCS: 36415; 80048; 80061; 82306; 83036; 84450; 84460

== ENCOUNTER 2020-08-25 13:22 | Outpatient (REF) | payer MEDICARE, SELFPAY | END 2020-08-25 13:23 | disposition home or self-care (01) | LOC: HO.MDS 13:22 | PROVIDERS: PCP Family Medicine; Visit Provider Hospitalist | DX: D80.1 Nonfamilial hypogammaglobulinemia (principal) | CPT/HCPCS: 96365; 96366; J1569 ==

== ENCOUNTER 2020-09-15 09:10 | Outpatient (REF) | payer MEDICARE, SELFPAY | END 2020-09-15 09:11 | disposition home or self-care (01) | LOC: HO.MDS 09:10 | PROVIDERS: PCP Family Medicine; Visit Provider Hospitalist | DX: D80.1 Nonfamilial hypogammaglobulinemia (principal) | CPT/HCPCS: 96365; 96366; J1561 ==

== ENCOUNTER 2020-10-06 09:05 | Outpatient (REF) | payer MEDICARE, SELFPAY | END 2020-10-06 09:06 | disposition home or self-care (01) | LOC: HO.MDS 09:05 | PROVIDERS: PCP Family Medicine; Visit Provider Hospitalist | DX: D80.1 Nonfamilial hypogammaglobulinemia (principal) | CPT/HCPCS: 96365; 96366; J1561 ==

== ENCOUNTER 2020-10-27 08:29 | Outpatient (REF) | payer MEDICARE, SELFPAY | END 2020-10-27 08:30 | disposition home or self-care (01) | LOC: HO.MDS 08:29 | PROVIDERS: PCP Family Medicine; Visit Provider Hospitalist | DX: D80.1 Nonfamilial hypogammaglobulinemia (principal) | CPT/HCPCS: 96365; 96366; J1561 ==

== ENCOUNTER 2020-11-17 08:42 | Outpatient (REF) | payer MEDICARE, SELFPAY | END 2020-11-17 08:43 | disposition home or self-care (01) | LOC: HO.MDS 08:42 | PROVIDERS: PCP Family Medicine; Visit Provider Hospitalist | DX: D80.1 Nonfamilial hypogammaglobulinemia (principal) | CPT/HCPCS: 96365; 96366; J1561 ==

== ENCOUNTER 2020-11-30 08:39 | Outpatient (REF) | payer MEDICARE, SELFPAY ==
[2020-11-30 11:34] LABS: Alanine Aminotransferase 41 U/L (0-31); Aspartate Amino Transferase 24 U/L (5-31); Cholesterol 272 mg/dL; HDL Cholesterol 51 mg/dL; LDL Cholesterol Calculated 176 mg/dl; Triglycerides 228 mg/dL
== END 2020-11-30 08:40 | disposition home or self-care (01) ==
LOC: HO.HMGCLDS 08:39
PROVIDERS: PCP Internal Medicine; Visit Provider Internal Medicine
DX: E78.2 Mixed hyperlipidemia (principal)
CPT/HCPCS: 36415; 80061; 82550; 84450; 84460

== ENCOUNTER 2020-12-08 08:36 | Outpatient (REF) | payer MEDICARE, SELFPAY | END 2020-12-08 08:37 | disposition home or self-care (01) | LOC: HO.MDS 08:36 | PROVIDERS: PCP Family Medicine; Visit Provider Hospitalist | DX: D80.1 Nonfamilial hypogammaglobulinemia (principal) | CPT/HCPCS: 96365; 96366; J1561 ==

== ENCOUNTER 2020-12-29 08:32 | Outpatient (REF) | payer MEDICARE, SELFPAY | END 2020-12-29 08:33 | disposition home or self-care (01) | LOC: HO.MDS 08:32 | PROVIDERS: PCP Family Medicine; Visit Provider Hospitalist | DX: D80.1 Nonfamilial hypogammaglobulinemia (principal) | CPT/HCPCS: 96365; 96366; J1561 ==

== ENCOUNTER 2021-01-19 09:07 | Outpatient (REF) | payer MEDICARE, SELFPAY | END 2021-01-19 09:08 | disposition home or self-care (01) | LOC: HO.MDS 09:07 | PROVIDERS: PCP Family Medicine; Visit Provider Hospitalist | DX: D80.1 Nonfamilial hypogammaglobulinemia (principal) | CPT/HCPCS: 96365; J1561 ==

== ENCOUNTER 2021-02-09 09:01 | Outpatient (REF) | payer MEDICARE, SELFPAY | END 2021-02-09 09:02 | disposition home or self-care (01) | LOC: HO.MDS 09:01 | PROVIDERS: PCP Family Medicine; Visit Provider Hospitalist | DX: D80.1 Nonfamilial hypogammaglobulinemia (principal) | CPT/HCPCS: 96365; 96366; J1561 ==

== ENCOUNTER 2021-03-02 09:05 | Outpatient (REF) | payer MEDICARE, SELFPAY | END 2021-03-02 09:06 | disposition home or self-care (01) | LOC: HO.MDS 09:05 | PROVIDERS: PCP Family Medicine; Visit Provider Hospitalist | DX: D80.1 Nonfamilial hypogammaglobulinemia (principal) | CPT/HCPCS: 96365; 96366; J1561 ==

== ENCOUNTER 2021-03-04 07:42 | Outpatient (REF) | payer MEDICARE, SELFPAY ==
[2021-03-04 11:49] LABS: Alanine Aminotransferase 54 U/L (0-31); Aspartate Amino Transferase 30 U/L (5-31); Cholesterol 233 mg/dL; HDL Cholesterol 49 mg/dL; LDL Cholesterol Calculated 149 mg/dl; Triglycerides 178 mg/dL
== END 2021-03-04 07:43 | disposition home or self-care (01) ==
LOC: HO.HMGCLDS 07:42
PROVIDERS: PCP Internal Medicine; Visit Provider Internal Medicine
DX: E78.2 Mixed hyperlipidemia (principal)
CPT/HCPCS: 36415; 80061; 84450; 84460

== ENCOUNTER 2021-03-23 09:07 | Outpatient (REF) | payer MEDICARE, SELFPAY | END 2021-03-23 09:08 | disposition home or self-care (01) | LOC: HO.MDS 09:07 | PROVIDERS: PCP Internal Medicine; Visit Provider Hospitalist | DX: D80.1 Nonfamilial hypogammaglobulinemia (principal) | CPT/HCPCS: 96365; 96366; J1569 ==

== ENCOUNTER 2021-04-13 09:04 | Outpatient (REF) | payer MEDICARE, SELFPAY | END 2021-04-13 09:05 | disposition home or self-care (01) | LOC: HO.MDS 09:04 | PROVIDERS: PCP Internal Medicine; Visit Provider Hospitalist | DX: D80.1 Nonfamilial hypogammaglobulinemia (principal) | CPT/HCPCS: 96365; 96366; J1561 ==

== ENCOUNTER 2021-05-04 09:00 | Outpatient (REF) | payer MEDICARE, SELFPAY | END 2021-05-04 09:01 | disposition home or self-care (01) | LOC: HO.MDS 09:00 | PROVIDERS: PCP Internal Medicine; Visit Provider Hospitalist | DX: D80.1 Nonfamilial hypogammaglobulinemia (principal) | CPT/HCPCS: 96365; 96366; J1561 ==

== ENCOUNTER 2021-05-25 07:54 | Outpatient (REF) | payer MEDICARE, SELFPAY | END 2021-05-25 07:55 | disposition home or self-care (01) | LOC: HO.MDS 07:54 | PROVIDERS: PCP Internal Medicine; Visit Provider Hospitalist | DX: D80.1 Nonfamilial hypogammaglobulinemia (principal) | CPT/HCPCS: 96365; 96366; J1561 ==

== ENCOUNTER 2021-06-15 09:07 | Outpatient (REF) | payer MEDICARE, SELFPAY | END 2021-06-15 09:08 | disposition home or self-care (01) | LOC: HO.MDS 09:07 | PROVIDERS: PCP Internal Medicine; Visit Provider Hospitalist | DX: D80.1 Nonfamilial hypogammaglobulinemia (principal) | CPT/HCPCS: 96365; 96366; J1561 ==

== ENCOUNTER 2021-07-06 09:31 | Outpatient (REF) | payer MEDICARE, SELFPAY | END 2021-07-06 09:32 | disposition home or self-care (01) | LOC: HO.MDS 09:31 | PROVIDERS: Visit Provider Hospitalist | DX: D80.1 Nonfamilial hypogammaglobulinemia (principal) | CPT/HCPCS: 96365; 96366; J1561 ==

== ENCOUNTER 2021-07-27 12:05 | Outpatient (REF) | payer MEDICARE, SELFPAY | END 2021-07-27 12:06 | disposition home or self-care (01) | LOC: HO.MDS 12:05 | PROVIDERS: Visit Provider Hospitalist | DX: D80.1 Nonfamilial hypogammaglobulinemia (principal) | CPT/HCPCS: 96365; 96366; J1561 ==

== ENCOUNTER 2021-08-17 09:33 | Outpatient (REF) | payer MEDICARE, SELFPAY | END 2021-08-17 09:34 | disposition home or self-care (01) | LOC: HO.MDS 09:33 | PROVIDERS: Visit Provider Hospitalist | DX: D80.1 Nonfamilial hypogammaglobulinemia (principal) | CPT/HCPCS: 96365; 96366; J1561 ==

== ENCOUNTER 2021-08-18 09:10 | Outpatient (REF) | payer MEDICARE, SELFPAY ==
--- NOTE | ~2021-08-18 | MM_ITS ---
EXAMINATION: MM SCREENING DIGITAL BREAST TOMOSYNTHESIS, BILATERAL CLINICAL INFORMATION: Screening. Asymptomatic. The lifetime risk of breast cancer based on the Tyrer-Cuzick Model is 3%. COMPARISON: Mammography: 08/17/2020, outside mammography 06/27/2012 ([facility]). TECHNIQUE: Digital breast tomosynthesis is performed in both the craniocaudal and mediolateral oblique views along with computer-aided detection (CAD). Synthesized 2D images are generated from the tomosynthesis. FINDINGS: There are scattered areas of fibroglandular density (ACR BI-RADS breast composition Category b). Fibronodular parenchymal pattern is similar to prior exams. Dominant nodule anterior upper inner left breast is stable. Right breast has a stable group of 3 nodules anterior outer breast. There is no developing density or interval significant mass or architectural abnormality. No abnormal calcifications. The axilla and skin contours are unremarkable. No significant changes. MM/MM tomosynthesis screening BI IMPRESSION: No significant changes from prior exams. ASSESSMENT: BI-RADS 2: Benign RECOMMENDATION: Routine annual mammography screening. This patient's information was entered into a reminder system with a target due date for their next mammogram.
== END 2021-08-18 09:11 | disposition home or self-care (01) ==
LOC: HO.MAMMO 09:10
PROVIDERS: PCP Internal Medicine; Visit Provider Internal Medicine
DX: Z12.31 Encounter for screening mammogram for malignant neoplasm of breast (principal)
CPT/HCPCS: 77063; 77067

== ENCOUNTER 2021-08-19 10:31 | Outpatient (REF) | payer MEDICARE, SELFPAY ==
[2021-08-19 14:12] LABS: Alanine Aminotransferase 27 U/L (0-31); Albumin Level 4.2 g/dL (3.5-5.0); Alkaline Phosphatase 81 U/L (39-117); Anion Gap 13 (12-20); Aspartate Amino Transferase 20 U/L (5-31); Bilirubin Total 1.2 mg/dL (0.0-1.0); Blood Urea Nitrogen 23 mg/dL (9-16); Calcium 9.3 mg/dL (8.4-10.2); Carbon Dioxide 28 mmol/L (22-29); Chloride 104 mmol/L (96-108); Cholesterol 282 mg/dL; Estimated Glomerular Filt Rate > 60; Glucose Fasting 111 mg/dL (60-99); HDL Cholesterol 53 mg/dL; LDL Cholesterol Calculated 192 mg/dl; Potassium 4.2 mmol/L (3.3-5.1); Sodium 141 mmol/L (135-145); Total Protein 7.4 g/dL (6.5-8.0); Triglycerides 186 mg/dL
[2021-08-19 14:19] LABS: Vitamin D 25-OH Total 27.5 ng/mL (>30)
== END 2021-08-19 10:32 | disposition home or self-care (01) ==
LOC: HO.HMGCLDS 10:31
PROVIDERS: Visit Provider Internal Medicine
DX: E78.2 Mixed hyperlipidemia (principal); I10 Essential (primary) hypertension; Z78.0 Asymptomatic menopausal state
CPT/HCPCS: 36415; 80053; 80061; 82306

== ENCOUNTER 2021-09-08 09:30 | Outpatient (REF) | payer MEDICARE, SELFPAY | END 2021-09-08 09:31 | disposition home or self-care (01) | LOC: HO.MDS 09:30 | PROVIDERS: Visit Provider Hospitalist | DX: D80.1 Nonfamilial hypogammaglobulinemia (principal) | CPT/HCPCS: 96365; 96366; J1561 ==

== ENCOUNTER 2021-09-28 08:56 | Outpatient (REF) | payer MEDICARE, SELFPAY | END 2021-09-28 08:57 | disposition home or self-care (01) | LOC: HO.MDS 08:56 | PROVIDERS: Visit Provider Hospitalist | DX: D80.1 Nonfamilial hypogammaglobulinemia (principal) | CPT/HCPCS: 96365; 96366; J1561 ==

== ENCOUNTER 2021-10-19 08:37 | Outpatient (REF) | payer MEDICARE, SELFPAY | END 2021-10-19 08:38 | disposition home or self-care (01) | LOC: HO.MDS 08:37 | PROVIDERS: Visit Provider Hospitalist | DX: D80.1 Nonfamilial hypogammaglobulinemia (principal) | CPT/HCPCS: 96365; 96366; J1561 ==

== ENCOUNTER 2021-11-09 09:02 | Outpatient (REF) | payer MEDICARE, SELFPAY | END 2021-11-09 09:03 | disposition home or self-care (01) | LOC: HO.MDS 09:02 | PROVIDERS: Visit Provider Hospitalist | DX: D80.1 Nonfamilial hypogammaglobulinemia (principal) | CPT/HCPCS: 96365; 96366; J1561 ==

== ENCOUNTER 2021-11-30 08:56 | Outpatient (REF) | payer MEDICARE, SELFPAY | END 2021-11-30 08:57 | disposition home or self-care (01) | LOC: HO.MDS 08:56 | PROVIDERS: Visit Provider Hospitalist | DX: D80.1 Nonfamilial hypogammaglobulinemia (principal) | CPT/HCPCS: 96365; 96366; J1561 ==

== ENCOUNTER 2021-12-21 09:09 | Outpatient (REF) | payer MEDICARE, SELFPAY | END 2021-12-21 09:10 | disposition home or self-care (01) | LOC: HO.MDS 09:09 | PROVIDERS: Visit Provider Hospitalist | DX: D80.1 Nonfamilial hypogammaglobulinemia (principal) | CPT/HCPCS: 96365; 96366; J1561 ==

== ENCOUNTER → 2022-01-03 10:23 | Outpatient (BNVA) | payer MEDICARE, SELFPAY | PROVIDERS: PCP Internal Medicine; Visit Provider Hospitalist | DX: J45.40 Moderate persistent asthma, uncomplicated (principal); G47.33 Obstructive sleep apnea (adult) (pediatric); D80.1 Nonfamilial hypogammaglobulinemia; Z99.89 Dependence on other enabling machines and devices | CPT/HCPCS: 99212 ==

== ENCOUNTER 2022-01-10 10:18 | Outpatient (REF) | payer MEDICARE, SELFPAY ==
[2022-01-10 11:23] LABS: MANUAL DIFF FLAG NO
[2022-01-10 11:40] LABS: Basophils Percent Auto 0.5 % (0-2); Eosinophils Absolute Auto 0.1 X10*3/uL (0.0-0.4); Eosinophils Percent Auto 1.3 % (0-4); Hematocrit 46.6 % (37.0-47.0); Hemoglobin 14.6 g/dl (12.0-16.0); Imm Gran Abs Auto 0.03 X10*3/uL (0.00-0.03); Imm Gran Pct Auto 0.3 % (0.0-0.4); Lymphocytes Absolute Auto 3.1 X10*3/uL (1.2-4.9); Lymphocytes Percent Auto 35.9 % (20-40); Mean Corpuscular HGB Conc 31.3 g/dl (31.0-35.0); Mean Corpuscular Hemoglobin 25.2 pg (27.0-33.0); Mean Corpuscular Volume 80.5 fL (80.0-98.0); Mean Platelet Volume 10.6 fL (9.4-12.3); Monocytes Absolute Auto 0.5 X10*3/uL (0.1-1.2); Monocytes Percent Auto 5.7 % (2-11); Neutrophils Absolute Auto 4.9 x10*3/uL (2.0-8.3); Neutrophils Percent Auto 56.3 % (45-73); Platelet Count 340 X10*3/uL (160-400); Red Blood Count 5.79 X10*6/uL (4.20-5.50); Red Cell Distribution Width 15.1 % (11.0-16.0); White Blood Count 8.7 X10*3/uL (4.8-10.8)
[2022-01-10 11:50] LABS: Alanine Aminotransferase 22 U/L (0-31); Anion Gap 18 (12-20); Aspartate Amino Transferase 17 U/L (5-31); Blood Urea Nitrogen 21 mg/dL (9-16); Calcium 9.8 mg/dL (8.4-10.2); Carbon Dioxide 28 mmol/L (22-29); Chloride 101 mmol/L (96-108); Cholesterol 292 mg/dL; Estimated Glomerular Filt Rate > 60; Glucose Fasting 131 mg/dL (60-99); HDL Cholesterol 57 mg/dL; LDL Cholesterol Calculated 204 mg/dl; Potassium 3.9 mmol/L (3.3-5.1); Sodium 143 mmol/L (135-145); Triglycerides 158 mg/dL
[2022-01-10 12:11] LABS: Vitamin D 25-OH Total 30.4 ng/mL (>30)
[2022-01-10 12:13] LABS: Erythrocyte Sedimentation Rate 13 MM/HR (0-20)
[2022-01-12 14:02] LABS: Immunoglobulin G Subclass 1 512 mg/dL (382-929); Immunoglobulin G Subclass 2 292 mg/dL (241-700); Immunoglobulin G Subclass 3 44 mg/dL (22-178); Immunoglobulin G Subclass 4 18.6 mg/dL (4-86); Immunoglobulin G Total 895 mg/dL (600-1540)
== END 2022-01-10 10:19 | disposition home or self-care (01) ==
LOC: HO.HMGCLDS 10:18
PROVIDERS: Absent Provider Hospitalist; PCP Internal Medicine; Visit Provider Internal Medicine
DX: I10 Essential (primary) hypertension (principal); E55.9 Vitamin D deficiency, unspecified; D80.1 Nonfamilial hypogammaglobulinemia; E78.2 Mixed hyperlipidemia
CPT/HCPCS: 36415; 80048; 80061; 82306; 82784; 84450; 84460; 85025; 85652

== ENCOUNTER 2022-01-11 09:09 | Outpatient (REF) | payer MEDICARE, SELFPAY | END 2022-01-11 09:10 | disposition home or self-care (01) | LOC: HO.MDS 09:09 | PROVIDERS: Visit Provider Hospitalist | DX: D80.1 Nonfamilial hypogammaglobulinemia (principal) | CPT/HCPCS: 96365; 96366; J1561 ==

== ENCOUNTER 2022-02-01 09:31 | Outpatient (REF) | payer MEDICARE, SELFPAY | END 2022-02-01 09:32 | disposition home or self-care (01) | LOC: HO.MDS 09:31 | PROVIDERS: Visit Provider Hospitalist | DX: D80.1 Nonfamilial hypogammaglobulinemia (principal) | CPT/HCPCS: 96365; 96366; J1561 ==

== ENCOUNTER 2022-02-22 09:06 | Outpatient (REF) | payer MEDICARE, SELFPAY | END 2022-02-22 09:07 | disposition home or self-care (01) | LOC: HO.MDS 09:06 | PROVIDERS: Visit Provider Hospitalist | DX: D80.1 Nonfamilial hypogammaglobulinemia (principal) | CPT/HCPCS: 96365; 96366; J1561 ==

== ENCOUNTER 2022-03-15 09:33 | Outpatient (REF) | payer MEDICARE, SELFPAY | END 2022-03-15 09:34 | disposition home or self-care (01) | LOC: HO.MDS 09:33 | PROVIDERS: Visit Provider Hospitalist | DX: D80.1 Nonfamilial hypogammaglobulinemia (principal) | CPT/HCPCS: 96365; 96366; J1561 ==

== ENCOUNTER 2022-04-05 09:02 | Outpatient (REF) | payer MEDICARE, SELFPAY | END 2022-04-05 09:03 | disposition home or self-care (01) | LOC: HO.MDS 09:02 | PROVIDERS: Visit Provider Hospitalist | DX: D80.1 Nonfamilial hypogammaglobulinemia (principal) | CPT/HCPCS: 96365; 96366; J1561 ==

== ENCOUNTER 2022-04-26 09:08 | Outpatient (REF) | payer MEDICARE, SELFPAY | END 2022-04-26 09:09 | disposition home or self-care (01) | LOC: HO.MDS 09:08 | PROVIDERS: Visit Provider Hospitalist | DX: D80.1 Nonfamilial hypogammaglobulinemia (principal) | CPT/HCPCS: 96365; 96366; J1561 ==

== ENCOUNTER 2022-05-15 10:40 | Outpatient (REF) | payer MEDICARE, SELFPAY ==
[2022-05-15 11:40] LABS: Estimated Average Glucose 123 mg/dL; Hemoglobin A1c % 5.9 %
[2022-05-15 11:46] LABS: Anion Gap 17 (12-20)
[2022-05-15 11:51] LABS: Alanine Aminotransferase 18 U/L (0-31); Aspartate Amino Transferase 17 U/L (5-31); Calcium 10.3 mg/dL (8.4-10.2); Carbon Dioxide 29 mmol/L (22-29); Chloride 100 mmol/L (96-108); Cholesterol 220 mg/dL; Estimated Glomerular Filt Rate > 60; Glucose Fasting 105 mg/dL (60-99); HDL Cholesterol 56 mg/dL; LDL Cholesterol Calculated 135 mg/dl; Sodium 142 mmol/L (135-145); Triglycerides 147 mg/dL
[2022-05-15 12:14] LABS: Vitamin D 25-OH Total 34.8 ng/mL (>30)
[2022-05-15 12:46] LABS: Blood Urea Nitrogen 26 mg/dL (9-16)
== END 2022-05-15 10:41 | disposition home or self-care (01) ==
LOC: HO.HMGCLDS 10:40
PROVIDERS: PCP Internal Medicine; Visit Provider Internal Medicine
DX: E55.9 Vitamin D deficiency, unspecified (principal); R73.01 Impaired fasting glucose; E78.2 Mixed hyperlipidemia; I10 Essential (primary) hypertension
CPT/HCPCS: 36415; 80048; 80061; 82306; 82550; 83036; 84450; 84460

== ENCOUNTER 2022-05-16 09:02 | Outpatient (REF) | payer MEDICARE, SELFPAY | END 2022-05-16 09:03 | disposition home or self-care (01) | LOC: HO.MDS 09:02 | PROVIDERS: PCP Internal Medicine; Visit Provider Hospitalist | DX: D80.1 Nonfamilial hypogammaglobulinemia (principal) | CPT/HCPCS: 96365; 96366; J1561 ==

== ENCOUNTER 2022-06-06 08:59 | Outpatient (REF) | payer MEDICARE, SELFPAY | END 2022-06-06 09:00 | disposition home or self-care (01) | LOC: HO.MDS 08:59 | PROVIDERS: Visit Provider Hospitalist | DX: D80.1 Nonfamilial hypogammaglobulinemia (principal) | CPT/HCPCS: 96365; 96366; J1561 ==

== ENCOUNTER 2022-06-27 10:09 | Outpatient (REF) | payer MEDICARE, SELFPAY | END 2022-06-27 10:10 | disposition home or self-care (01) | LOC: HO.MDS 10:09 | PROVIDERS: Visit Provider Hospitalist | DX: D80.1 Nonfamilial hypogammaglobulinemia (principal) | CPT/HCPCS: 96365; 96366; J1561 ==

== ENCOUNTER 2022-07-18 10:01 | Outpatient (REF) | payer MEDICARE, SELFPAY | END 2022-07-18 10:02 | disposition home or self-care (01) | LOC: HO.MDS 10:01 | PROVIDERS: Visit Provider Hospitalist | DX: D80.1 Nonfamilial hypogammaglobulinemia (principal) | CPT/HCPCS: 96365; 96366; J1561 ==

== ENCOUNTER 2022-07-28 10:00 | Outpatient (RCR) | payer MEDICARE, SELFPAY ==
--- NOTE | 2022-06-30 16:04 | MHC.PT.EP ---
[facility] [place] Office [place] Office [place] Office [address] Verenice Wang [address] [phone] F: [phone] F: [phone] F: [phone] F: [phone] Physical Therapy Plan of Care Date of Evaluation: Date of Surgery: n/a Diagnosis: lumbago w/ sciatica R side Assessment: Patient is a 72 year old female presenting to PT with complaints of pain in her low back. Pt reports onset of pain began worsening about 1 month ago but has been on and off for about 10 years due to insidious onset. She presents today with impairments in pain, lumbar ROM, core strength, hip strength, posture. Pt's current occupation is retired, with baseline physical activities including ADLs, ambulating, standing. 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 Clinical presentation today is most consistent with signs and sx associated with low back pain and pt will benefit from skilled PT 2 week x 4 weeks to address the following problems and impairments noted upon evaluation: pain, lumbar ROM, core strength, hip strength, posture. These problems limit the patient with the following functional activities: ambulating, standing, ADLs. The prescribed treatment plan of care is medically necessary. Co-morbidities of COPD, HTN were identified and taken into considerations of plan of care. Pt was educated on HEP, role of PT, prognosis, POC. Frequency and Duration: The patient will be seen 2 x week x 4 weeks Short Term Goals: Pt will demonstrate ability to perform PPT with good TAC recruitment in 2 weeks. Pt will demonstrate improved hip MMT strength by at least 1/3 grade in 2 weeks for improved lumbopelvic stability. Pt will demonstrate centralization of sx in her R leg in 2 weeks for improved QOL. Care Home Goals: Pt will demonstrate improved Javan score by 10% in 4 weeks for improved functional mobility. Pt will demonstrate ability to ambulate with min to no pain in 4 weeks for improved ability to grocery shop. Pt will demonstrate ability to stand with min to no pain for improved ability to tolerate volunteering in 4 weeks. Treatment Plan: Modalities to reduce pain, spasms and effusion. Manual therapy to restore motion and function. Therapeutic exercise to improve strength and flexibility. Neuromuscular re-education for posture and balance. Therapeutic activities to return to functional activities of daily living. Electronically signed by: Lola Pepe PT, DPT, ATC Please sign and return to therapist. Thank you for your referral.
--- NOTE | 2022-07-28 10:52 | MHC.PT.DC ---
[facility] [place] Office [place] Office [place] Office [address] Verenice Wang [address] [phone] F: [phone] F: [phone] F: [phone] F: [phone] Physical Therapy Discharge Report Diagnosis: lumbago w/ sciatica R side Date of Surgery: n/a Date of Evaluation: 06/30/22 Date of Discharge: 07/28/22 Treatments to Date: 9 Cancellations to Date: 0 No Shows to Date: 0 Discharge Status: Recommend MD Follow-up Discharge Summary: 07/28/2022: Pt has unfortunately made minimal to no progress since start of care. She is still having pain and difficulty lifting her leg. This is not her first attempt at PT and she feels she has never made significant gains with PT this time or in the past. She recently saw her PCP who is ordering an MRI which I feel is a good next step. At this point max benefits of PT have been provided and skilled PT is no longer indicated at this time. Pt to be d/c to HEP and recommend attending MRI and follow ups for results. Electronically signed by: Lola Pepe, PT, DPT, ATC Please sign and return to therapist. Thank you for your referral.
== END 2022-07-28 10:53 | disposition home or self-care (01) ==
LOC: HO.PTCHIC 10:00
PROVIDERS: PCP Internal Medicine; Visit Provider Internal Medicine
DX: M54.41 Lumbago with sciatica, right side (principal)
CPT/HCPCS: 97110; 97140; 97161

== ENCOUNTER 2022-08-08 09:02 | Outpatient (REF) | payer MEDICARE, SELFPAY | END 2022-08-08 09:03 | disposition home or self-care (01) | LOC: HO.MDS 09:02 | PROVIDERS: Visit Provider Hospitalist | DX: D80.1 Nonfamilial hypogammaglobulinemia (principal) | CPT/HCPCS: 96365; 96366; 96367; J1561 ==

== ENCOUNTER 2022-08-29 08:57 | Outpatient (REF) | payer MEDICARE, SELFPAY | END 2022-08-29 08:58 | disposition home or self-care (01) | LOC: HO.MDS 08:57 | PROVIDERS: Visit Provider Hospitalist | DX: D80.1 Nonfamilial hypogammaglobulinemia (principal) | CPT/HCPCS: 96365; 96366; J1561 ==

== ENCOUNTER 2022-08-31 15:00 | Outpatient (REF) | payer MEDICARE, SELFPAY ==
--- NOTE | ~2022-08-31 | MR_ITS ---
EXAMINATION: MR LUMBAR SPINE WITHOUT CONTRAST CLINICAL INFORMATION: Low back pain and right leg pain. COMPARISON: There are no prior studies available for comparison. TECHNIQUE: MRI of the lumbar spine was obtained using routine sequences without contrast. FINDINGS: VERTEBRAL BODIES AND PARASPINAL STRUCTURES: There is a transitional vertebra at the lumbosacral junction with partial sacralization of L5 bilaterally. There is a retrolisthesis of L3 on L4. There are severe degenerative endplate contour changes at this level with moderate edematous signal. There are Schmorl's nodes at adjacent endplates at multiple levels. Vertebral body heights are maintained, and no fractures are demonstrated. The visualized retroperitoneal and pelvic structures are unremarkable. There are arthropathic changes of the bilateral sacroiliac joints. CONUS MEDULLARIS AND CAUDA EQUINA: Normal, terminating at the level of L1. The lower thoracic spinal cord appears normal. The cauda equina nerve roots and filum terminale appear normal. SPINAL LEVELS: T9-T10 and T10-T11: There are posterior disc protrusions at both these levels efface CSF ventral to the cord without spinal cord compression. There does not appear to be central stenosis. There is mild right foraminal narrowing at T9-T10. T12-L1: The facet joints appear normal bilaterally. Disc contour is normal. There is no central stenosis or foraminal narrowing. L1-L2: There is mild bilateral facet arthropathy. Disc contour is normal. There is no central stenosis or foraminal narrowing. L2-L3: There is mild to moderate bilateral facet arthropathy. There is a mild diffuse disc bulge but there is no central stenosis. The neural foramina are patent bilaterally. L3-L4: There is moderate to severe bilateral facet arthropathy with ligamenta flava hypertrophy and facet joint effusions. There is a broad-based posterior disc protrusion which flattens the ventral thecal sac and narrows the subarticular recesses bilaterally. The protrusion extends into the neural foramina bilaterally and far laterally with impingement on the exiting and extraforaminal L3 nerve roots bilaterally. There is moderate central stenosis. L4-L5: There is severe left and moderate right facet arthropathy. There is a shallow posterior disc protrusion extending into the left neural foramen and far laterally with impingement on the exiting and extraforaminal left L4 nerve root. There is no central stenosis. L5-S1: The facet joints appear normal bilaterally. Disc contour is normal. There is no central stenosis or foraminal narrowing. MR/MR lumbar spine wo con IMPRESSION: 1. There is a transitional vertebra at the lumbosacral junction with partial sacralization of L5. This should be correlated with plain films before any intervention is undertaken. 2. At L3-L4 there is moderate to severe facet arthropathy and there is a broad-based posterior disc protrusion which flattens the ventral thecal sac and narrows the subarticular recesses. The protrusion extends far laterally with impingement on the exiting and extraforaminal L3 nerve roots bilaterally. There is moderate central stenosis. 3. At L4-L5 there is severe left and moderate right facet arthropathy. There is a shallow posterior disc protrusion extending far laterally on the left with impingement on the exiting and extraforaminal left L4 nerve root. There is no central stenosis. 4. At T9-T10 and T10-T11 there are posterior disc protrusions with effacement of CSF ventral to the cord without spinal cord compression or central stenosis. There is mild right foraminal narrowing at T9-T10.
== END 2022-08-31 15:01 | disposition home or self-care (01) ==
LOC: HO.MRI 15:00
PROVIDERS: PCP Internal Medicine; Visit Provider Internal Medicine
DX: M54.41 Lumbago with sciatica, right side (principal); G89.29 Other chronic pain
CPT/HCPCS: 72148

== ENCOUNTER 2022-09-20 09:04 | Outpatient (REF) | payer MEDICARE, SELFPAY | END 2022-09-20 09:05 | disposition home or self-care (01) | LOC: HO.MDS 09:04 | PROVIDERS: Visit Provider Hospitalist | DX: D80.1 Nonfamilial hypogammaglobulinemia (principal) | CPT/HCPCS: 96365; 96366; J1561 ==

== ENCOUNTER 2022-09-29 08:40 | Outpatient (REF) | payer MEDICARE, SELFPAY ==
--- NOTE | ~2022-09-29 | MM_ITS ---
EXAMINATION: MM SCREENING DIGITAL BREAST TOMOSYNTHESIS, BILATERAL CLINICAL INFORMATION: Screening. Asymptomatic. Family history breast cancer, Mother, sister. The lifetime risk of breast cancer based on the Tyrer-Cuzick Model is 10%. COMPARISON: Mammography: 08/17/2021, 08/17/2020; outside exam 06/27/2012 ([facility]) TECHNIQUE: Digital breast tomosynthesis is performed in both the craniocaudal and mediolateral oblique views along with computer-aided detection (CAD). Synthesized 2D images are generated from the tomosynthesis. FINDINGS: There are scattered areas of fibroglandular density (ACR BI-RADS breast composition Category b). There is fine fibronodular parenchymal pattern similar to prior studies. No developing density or architectural abnormality or interval dominant nodule. The axilla and skin contours are unremarkable. Incidental dermal lesion overlies upper outer right breast. There are scattered benign bilateral round calcifications. Loosely grouped punctate calcifications mid lower inner left breast are questionably increased. Patient will be recalled for additional imaging magnification views. MM/MM tomosynthesis screening BI IMPRESSION: Left: -Punctate loosely grouped calcifications mid lower inner quadrant, questionably increased. Right: -No mammographic evidence of malignancy. ASSESSMENT: BI-RADS 0: Incomplete - Need Additional Imaging Evaluation RECOMMENDATION: 1. Additional views left breast (magnification CC, magnification LM). 2. Radiology department staff will contact the patient for additional imaging. This patient's information was entered into a reminder system with a target due date for their next mammogram.
== END 2022-09-29 08:41 | disposition home or self-care (01) ==
LOC: HO.MAMMO 08:40
PROVIDERS: PCP Internal Medicine; Visit Provider Internal Medicine
DX: Z12.31 Encounter for screening mammogram for malignant neoplasm of breast (principal)
CPT/HCPCS: 77063; 77067

== ENCOUNTER 2022-10-06 13:59 | Outpatient (REF) | payer MEDICARE, SELFPAY ==
--- NOTE | ~2022-10-06 | MM_ITS ---
EXAMINATION: MM DIAGNOSTIC DIGITAL MAMMOGRAPHY, LEFT CLINICAL INFORMATION: Recall from screening for punctate loosely grouped calcifications mid lower inner left breast. Family history breast cancer, mother, sister. COMPARISON: Mammography: 09/29/2022, 08/18/2021, 08/17/2020, outside mammography 06/27/2012 ([facility]). TECHNIQUE: Digital mammography is performed in the following views: Magnification CC, magnification LM x2 FINDINGS: There are scattered areas of fibroglandular density (ACR BI-RADS breast composition Category b). The additional magnification views demonstrate loosely grouped predominantly round calcifications over 10 in number lower inner quadrant. Calcifications encompass an area of approximately 0.7 cm across. The calcifications are increased from prior recent mammography and stereotactic sampling is recommended. Results and management recommendation are discussed with the patient at time of visit. Results and management recommendation called to business services officer (Wendy) for Dr. Castle on 10/06/2022. MM/MM added views LT IMPRESSION: Loosely grouped increased calcifications lower inner left breast. ASSESSMENT: BI-RADS 4: Suspicious (subcategory 4A: Low suspicion for malignancy) RECOMMENDATION: Stereotactic sampling left breast calcifications. This patient's information was entered into a reminder system with a target due date for their next mammogram.
== END 2022-10-06 14:00 | disposition home or self-care (01) ==
LOC: HO.MAMMO 13:59
PROVIDERS: PCP Internal Medicine; Visit Provider Internal Medicine
DX: R92.1 Mammographic calcification found on diagnostic imaging of breast (principal); M54.9 Dorsalgia, unspecified
CPT/HCPCS: 77065; 99202

== ENCOUNTER 2022-10-10 10:04 | Outpatient (REF) | payer MEDICARE, SELFPAY | END 2022-10-10 10:05 | disposition home or self-care (01) | LOC: HO.MDS 10:04 | PROVIDERS: PCP Internal Medicine; Visit Provider Hospitalist | DX: D80.1 Nonfamilial hypogammaglobulinemia (principal) | CPT/HCPCS: 96365; 96366; J1561 ==

== ENCOUNTER 2022-10-18 09:25 | Outpatient (REF) | payer MEDICARE, SELFPAY ==
--- NOTE | ~2022-10-18 | MM_ITS ---
EXAMINATION: STEREOTACTIC TOMOSYNTHESIS-GUIDED VACUUM-ASSISTED BREAST BIOPSY, LEFT SPECIMEN RADIOGRAPH, LEFT POST PROCEDURE DIGITAL MAMMOGRAM, LEFT CLINICAL INFORMATION: Calcifications mid lower inner left breast for stereotactic sampling. Family history breast cancer.. COMPARISON: Prior mammography exams including most recent 10/06/2022 and 09/29/2022. TECHNIQUE/PROCEDURE: Informed consent was obtained from the patient after discussion of the benefits, risks, and alternatives to biopsy today. Patient appeared to understand. Gave opportunity for questions. Patient signed consent form. BIOPSY TABLE: [email or web address] Biopsy System. LESION: Calcifications mid lower inner left breast. LOCAL ANESTHESIA: 10 mL carbonated 1% lidocaine; 10 mL 1% lidocaine with epinephrine. DERMATOTOMY: Single skin ila dermatotomy performed. NEEDLE: Ceregeneiva 9-gauge vacuum assisted core biopsy device. APPROACH: Caudal cranial. TARGETING: Combination of digital breast tomosynthesis and stereotactic digital mammography used for targeting. CORES: 6. CLIP: [employer] T-shaped marker. SPECIMEN RADIOGRAPH: Specimen radiograph is taken in separate room using digital mammography. The index calcifications are in the excised cores. There are at least 15 calcifications in the cores. POST PROCEDURE UNILATERAL DIGITAL MAMMOGRAM: The post biopsy mammogram is performed in separate room using separate digital mammography equipment from the biopsy procedure. CC and ML views are obtained. There are scattered areas of fibroglandular density (breast composition category: b). The clip marker is in position. The calcifications are markedly decreased at the biopsy site and no longer visualized. No gross hematoma. The patient tolerated the procedure well. No immediate complications. Home instructions reviewed with the patient. Final pathology results are pending. MM/MM stereotactic biopsy LT IMPRESSION: 1. Digital tomosynthesis-guided core biopsy left breast with clip placement. 2. Specimen radiograph taken and post procedure mammogram. There is satisfactory positioning of the biopsy clip. 3. Final pathology results pending. An addendum report will be issued.
[2022-10-18] MEDS: Lidocaine HCl 1 % 20 ML VIAL 9 ML SUBCUT (10:30)
[2022-10-18] MEDS: Sodium Bicarbonate 8.4% 50 MEQ/50 ML VIAL SUBCUT (10:31)
[2022-10-18] MEDS: Lidocaine HCl 1%/Epi 1:100,000 10 ML VIAL SUBCUT (10:32)
== END 2022-10-18 09:26 | disposition home or self-care (01) ==
LOC: HO.MAMMO 09:25
PROVIDERS: PCP Internal Medicine; Visit Provider Surgery
DX: R92.1 Mammographic calcification found on diagnostic imaging of breast (principal)
CPT/HCPCS: 19081; 88305; 99202; A4648

== ENCOUNTER → 2022-10-25 10:58 | Outpatient (BNVA) | payer MEDICARE, SELFPAY | PROVIDERS: PCP Internal Medicine; Visit Provider Surgery | DX: D24.2 Benign neoplasm of left breast (principal); Z98.890 Other specified postprocedural states | CPT/HCPCS: 99212 ==

== ENCOUNTER → 2022-10-30 13:36 | Outpatient (BNVA) | payer MEDICARE, SELFPAY | PROVIDERS: PCP Internal Medicine; Visit Provider Anesthesiology | DX: M51.16 Intervertebral disc disorders with radiculopathy, lumbar region (principal); M79.7 Fibromyalgia; M47.26 Other spondylosis with radiculopathy, lumbar region; M53.3 Sacrococcygeal disorders, not elsewhere classified; M46.1 Sacroiliitis, not elsewhere classified; G89.4 Chronic pain syndrome | CPT/HCPCS: 99202 ==

== ENCOUNTER 2022-10-31 10:04 | Outpatient (REF) | payer MEDICARE, SELFPAY | END 2022-10-31 10:05 | disposition home or self-care (01) | LOC: HO.MDS 10:04 | PROVIDERS: Visit Provider Hospitalist | DX: D80.1 Nonfamilial hypogammaglobulinemia (principal) | CPT/HCPCS: 96365; 96366; J1561 ==

== ENCOUNTER 2022-11-21 09:05 | Outpatient (REF) | payer MEDICARE, SELFPAY | END 2022-11-21 09:06 | disposition home or self-care (01) | LOC: HO.MDS 09:05 | PROVIDERS: Visit Provider Hospitalist | DX: D80.1 Nonfamilial hypogammaglobulinemia (principal) | CPT/HCPCS: 96365; J1561 ==

== ENCOUNTER 2022-12-04 10:05 | Outpatient (REF) | payer MEDICARE, SELFPAY ==
[2022-12-04 14:36] LABS: Alanine Aminotransferase 21 U/L (0-31); Anion Gap 18 (12-20); Aspartate Amino Transferase 16 U/L (5-31); Blood Urea Nitrogen 22 mg/dL (9-16); Calcium 9.9 mg/dL (8.4-10.2); Carbon Dioxide 25 mmol/L (22-29); Chloride 103 mmol/L (96-108); Cholesterol 244 mg/dL; Estimated Glomerular Filt Rate > 60; Glucose Fasting 106 mg/dL (60-99); HDL Cholesterol 51 mg/dL; LDL Cholesterol Calculated 146 mg/dl; Potassium 3.7 mmol/L (3.3-5.1); Sodium 142 mmol/L (135-145); Triglycerides 237 mg/dL
[2022-12-04 14:50] LABS: Estimated Average Glucose 114 mg/dL; Hemoglobin A1c % 5.6 %
== END 2022-12-04 10:06 | disposition home or self-care (01) ==
LOC: HO.HMGCLDS 10:05
PROVIDERS: PCP Internal Medicine; Visit Provider Internal Medicine
DX: E55.9 Vitamin D deficiency, unspecified (principal); E78.2 Mixed hyperlipidemia; I10 Essential (primary) hypertension; R73.01 Impaired fasting glucose; Z78.0 Asymptomatic menopausal state
CPT/HCPCS: 36415; 80048; 80061; 82306; 83036; 84450; 84460

== ENCOUNTER 2022-12-08 08:02 | Outpatient (AMB) | payer MEDICARE, SELFPAY ==
--- NOTE | 2022-12-08 08:07 | A.OFFPC_ITS ---
Vital Signs 12/08/22 08:09 Height 5 ft 4 in Weight 242 lb BMI 41.5 BP 132/68 Blood Pressure Location Rt brachial Position Sitting Pulse 67 Pulse Source Pulse Oximeter Pulse Oximetry (%) 96 Oxygen Delivery Method Room Air Intake Visit Reasons: 6 month follow up Intake Note: Pt is here today for her 6 months f/u Allergies cephalexin [Keflex] Allergy (Unknown, Verified 12/08/22 08:29) anaphylaxis glycine [From GAMMAGARD S/D] Adverse Reaction (Unknown, Verified 12/08/22 08:29) WEAKNESS IgA less than or equal to 50 mcg/mL [From GAMMAGARD S/D] Adverse Reaction (Unknown, Verified 12/08/22 08:29) WEAKNESS immune globulin,gamma (IgG) human [From GAMMAGARD S/D] Adverse Reaction (Unknown, Verified 12/08/22 08:29) WEAKNESS Penicillins [PENICILLINS] Adverse Reaction (Unknown, Verified 12/08/22 08:29) DIARRHEA atorvastatin Adverse Reaction (Verified 12/08/22 08:29) muscle ache pravastatin Adverse Reaction (Verified 12/08/22 08:29) Muscle pain Medication List - Last Reconciled 12/08/22 by Stephanie Castle MD acetaminophen ER (Tylenol Arthritis Pain) 650 mg PO Q12H albuterol sulfate 90 mcg/actuation (ProAir HFA) 2 puffs inhalation Q4-6H PRN atenolol 25 mg PO DAILY 90 days celecoxib 200 mg PO DAILY PRN ezetimibe 10 mg PO DAILY hydrochlorothiazide 25 mg PO DAILY 90 days immune globul G-gly-IgA avg 46 10 gram/100 mL (10 %) (Gamunex-C) unknown lactobacillus combination no.9 (Adult 50 Plus Probiotic) 4,000 mmu cells PO DAILY Tobacco use date assessed: 12/08/22 Fall risk assessment: No Falls in past year Last assessed Fall Risk: 12/08/22 Dental Screening Dental Screen Date: 12/08/22 Did you have a dental visit in the last 12 months?: Yes Did you have a dental problem in the last 6 months where you did not have access to dental care?: No Was dental information given to patient?: Patient has dentist HPI 6 month follow up HPI Details 72-year-old lady with dyslipidemia, osteoarthritis, hypertension, here today for follow-up. She has been compliant with taking her medications, currently taking ezetimibe 10 mg once a day and hydrochlorothiazide 25 mg daily together with atenolol 25 mg daily for hypertension. Takes an occasional acetaminophen for her joint pains. [facility] Medical History Breast calcification, left Chronic low back pain with right-sided sciatica COPD (chronic obstructive pulmonary disease) De Quervain's disease (radial styloid tenosynovitis) Fibroadenoma Hiatal hernia Hypertension Impaired fasting glucose Lumbar disc herniation with radiculopathy Mixed dyslipidemia Moderate persistent asthma in adult without complication Myalgia due to statin Nonfamilial hypogammaglobulinemia ERNIE (obstructive sleep apnea) Osteoarthritis of knee Post-menopause Trigger finger Tubular adenoma of colon Vitamin D deficiency Surgical History History of bilateral knee replacement History of bowel resection History of colonoscopy with polypectomy Hx of appendectomy Hx of cholecystectomy Hx of tonsillectomy Family History Mother HTN (hypertension) Uterine cancer Father Colon cancer Sister CVA (cerebral vascular accident) Breast cancer, Onset Age: 50 Social History Household Members: Family Household Members Other:: and son Housing: House Do you presently have visiting nurse or other home services: No Alcohol intake: never Patient Tobacco Use Status: Former Tobacco user Tobacco use type: Cigarette Years Smoked: 15 Years e-Cigarette/Vaping Use: Never Used service: No Current occupational status: retired Cognitive needs: No Hearing needs: No Vision needs: Yes Female Reproductive History Menstrual Age of Menarche: 14 Questionnaire Thrive Questionnaire Date Thrive assessed: 05/18/22 AUDIT C Alcohol Use Questionnaire (AUDIT-C) 1. How often do you have a drink containing alcohol?: Monthly or less 2. How many drinks containing alcohol do you have on a typical day when you are drinking?: 1 or 2 3. How often do you have six or more drinks on one occasion?: Never Total Score: 1 STERLING-7 AMB Questionnaire STERLING-7 Date STERLING - 7 assessed: 05/18/22 Source: Developed by Drs. Bj Price, Lela Richmond, Tahir Sharma and colleagues, with an educational itzel from [employer]. Review of Systems Const Denies headache(s) and Denies poor appetite ENT Denies dysphagia, Denies dizziness, Denies headache(s), Denies nasal congestion and Denies nasal discharge Card Denies chest pain and Denies dyspnea Resp Denies cough and Denies dyspnea GI Denies abdominal pain, Denies dysphagia and Denies heartburn Musc Reports arthralgias, Denies joint swelling, Denies muscle cramps and Denies muscle weakness Neuro Denies dizziness, Denies headache(s) and Denies focal weakness Physical exam (Primary Care) Vital Signs: Last Vital Signs Pulse 67 12/08/22 08:09 BP 132/68 12/08/22 08:09 Pulse Ox 96 12/08/22 08:09 Oxygen Delivery Method Room Air 12/08/22 08:09 BMI result Body Mass Index 41.5 BMI Assessment/Plan discussion: High BMI High, discussed plan: lifestyle, weight reduction, dietary and physical activity Tobacco/Smoking Status: Tobacco use Status Tobacco use date assessed 12/08/22 12/08/22 08:15 Patient Tobacco Use Status Former Tobacco user 12/08/22 08:15 Tobacco use type Cigarette 12/08/22 08:15 e-Cigarette/Vaping Use Never Used 12/08/22 08:15 Thrive Assessment: Date of Thrive Assessment Date Thrive assessed 05/18/22 12/08/22 08:15 Const General: no acute distress and alert Nutritional Appearance: obese morbidly obese Neck Other: Supple no lymphadenopathy, thyroid gland nonpalpable Chest Breast/axilla inspection: normal inspection of the breasts Breast/axilla palpation: normal palpation of the breasts Resp Auscultation: clear to auscultation bilaterally Cardio Other: S1-S2 present regular rate and rhythm GI Other: Obese, soft, nontender, no mass palpated Auscultation: normal bowel sounds Skin General skin exam: no rashes or lesions noted Neuro General: gait normal, moves all extremities, Normal light touch and pain sensation, no focal motor deficits and CN's II-XI intact bilaterally Extrem Other: No gross bone deformity or joint swelling seen Results Reviewed Results Reviewed: SPEC : [id number] TIERA: 12/04/22-0 STATUS: COMP REQ : [id number] RECD: 12/04/22-[address]: Stephanie Castle MD COMP: 12/04/22-1438 ENTERED: 12/04/22-[address] [facility] DR: ORDERED: Met Prof Fast, AST, ALT, Lipid Panel, Vitamin D 25-OH Test Result Flag Reference Site Sodium 142 135-145 mmol/L Potassium 3.7 3.3-5.1 mmol/L CL 103 96-108 mmol/L CO2 25 22-29 mmol/L Gap 18 12-20 BUN 22 H 9-16 mg/dL Creat 0.74 0.5-1.4 mg/dL EGFR > 60 NOTE: For -[place] individuals, multiply the result by 1.210. Chronic Kidney Disease: Estimated GFR < 60 mL/min/1.73m2 Severe Kidney Disease: Estimated GFR < 15 mL/ min/1.73m2 FBS 106 H 60-99 mg/dL A fasting glucose from 100-125 mg/dl is considered impaired (pre-diabetes). CA 9.9 8.4-10.2 mg/dL AST (GOT) 16 5-31 U/L ALT (GPT) 21 0-31 U/L Triglyceride 237 mg/dL Desirable Triglyceride: less than 150 mg/dL Borderline High Triglyceride 150-199 mg/dL High Triglyceride: 200-499 mg/dL Very High Triglyceride: greater than or equal to 5OO mg/dL Chol 244 mg/dL Desirable Cholesterol: less than 200 mg/dL Borderline High Cholesterol: 200-239 mg/dL High Cholesterol: greater than 239 mg/dL LDL Calculated 146 mg/dl Desirable LDL: less than 100 mg/dL Near Optimal/Above Optimal LDL: 110-129 mg/dL Borderline High LDL: 130-159 mg/dL High LDL: 160-189 mg/dL Very High LDL: greater than or equal to 190 mg/dL HDL 51 mg/dL Desirable HDL: greater than 40 mg/dL Note: This HDL assay may give artificially low results in patients with liver disease. Vit D 25-OH Tot 57.0 >30 ng/mL Health Based Reference Values* < 20 ng/mL Deficient 20-30 ng/mL Insufficient > 30 ng/mL Sufficient Assessment and Plan Assessment & Plan (1) Impaired fasting glucose: Code(s): R73.01 - Impaired fasting glucose Plan: Recent fasting glucose is at 106 mg/dL. . Impaired glucose metabolism O2 at risk for developing diabetes mellitus type 2, as well as heart attack and stroke later on. Lifestyle changes at just weight loss, healthy eating habits, and regular exercise are important, and can prevent the progression to diabetes (2) Mixed dyslipidemia: Code(s): E78.2 - Mixed hyperlipidemia Plan: Reviewed recent fasting lipid profile with patient with elevated LDL cholesterol and triglycerides . Continue with ezetimibe, unable to tolerate statin , in addition to adherence to low-cholesterol diet and regular exercise, at least 30 minutes 3 to 4 times a week. Advised patient to make healthy food choices, eat more fruits, vegetables, whole grains, wild caught fish and low-fat dairy. Limit amount of meat and fried or fatty food products, as well as processed foods and fast foods. Follow-up scheduled with repeat fasting lipid panel in 3 months. (3) Hypertension: Code(s): I10 - Essential (primary) hypertension Plan: Blood pressure at goal of less than 130/80. Continue with current medication. Reinforced importance of following a low sodium diet, getting regular exercise, and lowering stress levels. (4) History of vitamin D deficiency: Code(s): Z86.39 - Personal history of other endocrine, nutritional and metabolic disease Plan: Latest vitamin-D levels are within normal limits, Recheck vitamin-D level in 3 months, continue with taking [id number] vitamin-D 3 2000 units daily (5) Breast cancer screening by mammogram: Code(s): Z12.31 - Encounter for screening mammogram for malignant neoplasm of breast Plan: Screening mammogram ordered to be done at [facility] Orders: Orders MM screening mammo BI 04/27/23 Z12.31 - Encounter for screening mammogram for malignant neoplasm of breast Alanine Aminotransferase 3 Months E55.9 - Vitamin D deficiency, unspecified, E78.2 - Mixed hyperlipidemia, I10 - Essential (primary) hypertension, R73.01 - Impaired fasting glucose, Z78.0 - Asymptomatic menopausal state Aspartate Amino Transferase 3 Months E55.9 - Vitamin D deficiency, unspecified, E78.2 - Mixed hyperlipidemia, I10 - Essential (primary) hypertension, R73.01 - Impaired fasting glucose, Z78.0 - Asymptomatic menopausal state Basic Metabolic Panel Fasting 3 Months E55.9 - Vitamin D deficiency, unspecified, E78.2 - Mixed hyperlipidemia, I10 - Essential (primary) hypertension, R73.01 - Impaired fasting glucose, Z78.0 - Asymptomatic menopausal state Creatine Kinase Total 3 Months E55.9 - Vitamin D deficiency, unspecified, E78.2 - Mixed hyperlipidemia, I10 - Essential (primary) hypertension, R73.01 - Impaired fasting glucose, Z78.0 - Asymptomatic menopausal state Lipid Panel 3 Months E55.9 - Vitamin D deficiency, unspecified, E78.2 - Mixed hyperlipidemia, I10 - Essential (primary) hypertension, R73.01 - Impaired fasting glucose, Z78.0 - Asymptomatic menopausal state Vitamin D 25-OH Total 3 Months E55.9 - Vitamin D deficiency, unspecified, E78.2 - Mixed hyperlipidemia, I10 - Essential (primary) hypertension, R73.01 - Impaired fasting glucose, Z78.0 - Asymptomatic menopausal state Coding Level of Care Code Est Pt Level 4 (79915) Diagnoses Impaired fasting glucose R73.01 Mixed dyslipidemia E78.2 Hypertension I10 History of vitamin D deficiency Z86.39 Breast cancer screening by mammogram Z12.31
[2022-12-08 08:09] VITALS: BP 132/68; PULSE 67; O2SAT 96; BMI 41.5
== END 2022-12-08 13:03 | disposition home or self-care (01) ==
PROVIDERS: Visit Provider Internal Medicine
DX: R73.01 Impaired fasting glucose (principal); E78.2 Mixed hyperlipidemia; I10 Essential (primary) hypertension; Z86.39 Personal history of other endocrine, nutritional and metabolic disease; Z12.31 Encounter for screening mammogram for malignant neoplasm of breast
CPT/HCPCS: 99214

== ENCOUNTER 2022-12-12 09:03 | Outpatient (REF) | payer MEDICARE, SELFPAY | END 2022-12-12 09:04 | disposition home or self-care (01) | LOC: HO.MDS 09:03 | PROVIDERS: Visit Provider Hospitalist | DX: D80.1 Nonfamilial hypogammaglobulinemia (principal) | CPT/HCPCS: 96365; J1561 ==

== ENCOUNTER 2023-01-02 09:34 | Outpatient (REF) | payer MEDICARE, SELFPAY | END 2023-01-02 09:35 | disposition home or self-care (01) | LOC: HO.MDS 09:34 | PROVIDERS: Visit Provider Hospitalist | DX: D80.1 Nonfamilial hypogammaglobulinemia (principal) | CPT/HCPCS: 96365; J1561 ==

== ENCOUNTER 2023-01-23 09:04 | Outpatient (REF) | payer MEDICARE, SELFPAY | END 2023-01-23 09:05 | disposition home or self-care (01) | LOC: HO.MDS 09:04 | PROVIDERS: Visit Provider Hospitalist | DX: D80.1 Nonfamilial hypogammaglobulinemia (principal) | CPT/HCPCS: 96365; 96366; J1561 ==

== ENCOUNTER 2023-02-13 08:42 | Outpatient (REF) | payer MEDICARE, SELFPAY | END 2023-02-13 08:43 | disposition home or self-care (01) | LOC: HO.MDS 08:42 | PROVIDERS: Visit Provider Hospitalist | DX: D80.1 Nonfamilial hypogammaglobulinemia (principal) | CPT/HCPCS: 96365; 96366; J1561 ==

== ENCOUNTER 2023-03-06 10:02 | Outpatient (REF) | payer MEDICARE, SELFPAY | END 2023-03-06 10:03 | disposition home or self-care (01) | LOC: HO.MDS 10:02 | PROVIDERS: Visit Provider Hospitalist | DX: D80.1 Nonfamilial hypogammaglobulinemia (principal) | CPT/HCPCS: 96365; J1561 ==

== ENCOUNTER 2023-03-14 09:54 | Outpatient (AMB) | payer MEDICARE, SELFPAY ==
[2023-03-14 11:37] VITALS: BP 128/70; PULSE 68; TEMP 36.3; O2SAT 96; BMI 43.1
--- NOTE | 2023-03-14 11:37 | MHC.OFFWIV ---
Intake Vital Signs 03/14/23 11:37 Height 5 ft 4 in Weight 251 lb BMI 43.1 BP 128/70 Blood Pressure Location Rt brachial Position Sitting Pulse 68 Pulse Source Pulse Oximeter Temp 97.3 F Temp Source Temporal Artery Scan Pulse Oximetry (%) 96 Oxygen Delivery Method Room Air Intake Visit Reasons: EP, constipation, abdominal pain Intake Note: pt is here for c/o constipation 2x weeks on and off, extended abd with pain Patient Tobacco Use Status: Former Tobacco user Allergies cephalexin [Keflex] Allergy (Unknown, Verified 03/14/23 12:20) anaphylaxis glycine [From GAMMAGARD S/D] Adverse Reaction (Unknown, Verified 03/14/23 12:20) WEAKNESS IgA less than or equal to 50 mcg/mL [From GAMMAGARD S/D] Adverse Reaction (Unknown, Verified 03/14/23 12:20) WEAKNESS immune globulin,gamma (IgG) human [From GAMMAGARD S/D] Adverse Reaction (Unknown, Verified 03/14/23 12:20) WEAKNESS Penicillins [PENICILLINS] Adverse Reaction (Unknown, Verified 03/14/23 12:20) DIARRHEA atorvastatin Adverse Reaction (Verified 03/14/23 12:20) muscle ache pravastatin Adverse Reaction (Verified 03/14/23 12:20) Muscle pain Medication List - Last Reconciled 03/14/23 by ASHLEY Trevino-ISAIAH acetaminophen ER (Tylenol Arthritis Pain) 650 mg PO Q12H albuterol sulfate 90 mcg/actuation (ProAir HFA) 2 puffs inhalation Q4-6H PRN atenolol 25 mg PO DAILY 90 days celecoxib 200 mg PO DAILY PRN ezetimibe 10 mg PO DAILY hydrochlorothiazide 25 mg PO DAILY 90 days immune globul G-gly-IgA avg 46 10 gram/100 mL (10 %) (Gamunex-C) unknown lactobacillus combination no.9 (Adult 50 Plus Probiotic) 4,000 mmu cells PO DAILY Do you need a note to return to daycare/school/sports/work: Yes HPI HPI Comments History of Present Illness Details here today w c/o constipation and abd pain x 2 weeks. has been using otc medications and prune juice to help which has resulted in BM q 3 days, last time yesterday. Reports nonbloody stools. Assoc w/ decreased appetite, abd bloating. over the last few days has felt SOB d/t the abd bloating. And last night experience bladder incont got out of bed and could not stop peeing . Reports hx of diverticulitis w/ bowel resection several years ago. + nausea w/o vomting. Denies fever or chills. Reports driving today when was going over the bumps in the road she had to hold on to her abd and screamed d/t the pain in her belly. [facility] Medical History Breast calcification, left Chronic low back pain with right-sided sciatica COPD (chronic obstructive pulmonary disease) De Quervain's disease (radial styloid tenosynovitis) Fibroadenoma Hiatal hernia Hypertension Impaired fasting glucose Lumbar disc herniation with radiculopathy Mixed dyslipidemia Moderate persistent asthma in adult without complication Myalgia due to statin Nonfamilial hypogammaglobulinemia ERNIE (obstructive sleep apnea) Osteoarthritis of knee Post-menopause Trigger finger Tubular adenoma of colon Vitamin D deficiency Surgical History History of bilateral knee replacement History of bowel resection History of colonoscopy with polypectomy Hx of appendectomy Hx of cholecystectomy Hx of tonsillectomy Family History Mother HTN (hypertension) Uterine cancer Father Colon cancer Sister CVA (cerebral vascular accident) Breast cancer, Onset Age: 50 Social History Household Members: Family Household Members Other:: and son Housing: House Do you presently have visiting nurse or other home services: No Alcohol intake: never Patient Tobacco Use Status: Former Tobacco user Tobacco use type: Cigarette Years Smoked: 15 Years e-Cigarette/Vaping Use: Never Used service: No Current occupational status: retired Cognitive needs: No Hearing needs: No Vision needs: Yes Female Reproductive History Menstrual Age of Menarche: 14 Review of Systems Const All systems reviewed & are unremarkable except as noted in HPI and below Physical Exam Vital Signs: Last Vital Signs Temp 97.3 F 03/14/23 11:37 Pulse 68 03/14/23 11:37 BP 128/70 03/14/23 11:37 Pulse Ox 96 03/14/23 11:37 Oxygen Delivery Method Room Air 03/14/23 11:37 BMI result Body Mass Index 43.1 Const Other: awake alert accompanied by LS CTAB RRR GI Other: TTP over RUQ and epigastric region No CVAT bilat Inspection: Yes distended, Yes obesity and Yes striae Palpation (GI): Firmness to palpation present (GI), Tenderness to palpation present (GI) and Guarding due to palpation present (GI) Percussion: Yes tympanic to percussion Auscultation: Hypoactive bowel sounds present Rectal Exam - Female: deferred Assessment & Plan Assessment & Plan (1) Acute generalized abdominal pain: Code(s): R10.84 - Generalized abdominal pain Patient Instructions: given hx and exam i have advised to seek higher level of care. She wishes to go to [facility] via private transport. I have advised her to not eat or drink and to head directly to [facility] ED. Doc to Doc report was called over. She should f/u w her care team after eval. Coding Level of Care Code Est Pt Level 4 (05214) Diagnoses Acute generalized abdominal pain R10.84
== END 2023-03-14 12:21 | disposition home or self-care (01) ==
PROVIDERS: PCP Internal Medicine; Visit Provider Nurse Practitioner Family
DX: R10.84 Generalized abdominal pain (principal)
CPT/HCPCS: 99214

== ENCOUNTER 2023-03-14 12:28 | Observation (INO) | payer MEDICARE, SELFPAY ==
--- NOTE | ~2023-03-14 | CT_ITS ---
EXAMINATION: CT ABDOMEN AND PELVIS WITH CONTRAST CLINICAL INFORMATION: Abdominal pain. Constipation. Rule out obstruction. COMPARISON: Previous CT of the abdomen and pelvis from 2011 TECHNIQUE: Multidetector volumetric images were obtained from the superior aspect of the liver through the pubic symphysis following administration 85 mL of Omnipaque 350 intravenous contrast. Sagittal and coronal reformatted images were obtained on the technologist's workstation. Oral contrast: Yes This CT examination was performed using dose optimization techniques as appropriate, variously including the following: *Automated exposure control *Adjustment of mA and/or kV according to patient size (this includes techniques or standardized protocols for targeted exams where dose is matched to indication/reason for exam; i.e. extremities or head) *Use of iterative reconstruction technique DLP: 1361 mGy-cm FINDINGS: LUNG BASES: There is a small right pleural effusion. There are prominent cardiophrenic angle/anterior diaphragmatic lymph nodes. LIVER, GALLBLADDER, AND BILIARY TREE: The liver is normal in size, shape, and attenuation. No focal hepatic lesion or biliary ductal dilatation is present. The gallbladder is not seen and has presumably been removed. PANCREAS: Unremarkable. SPLEEN: Unremarkable. ADRENAL GLANDS: Unremarkable. KIDNEYS AND URETERS: The kidneys are normal in size, shape, and attenuation. No hydronephrosis, hydroureter, or calculi seen. No perinephric stranding. BLADDER: Unremarkable. GASTROINTESTINAL TRACT: There is diverticulosis of the colon. No evidence of diverticulitis. No evidence of obstruction. Small and large bowel is unremarkable. Stomach is unremarkable. The appendix is not seen. There is a large amount of ascites in the abdomen and pelvis. There is thickening of the greater omentum. Appearance is worrisome for carcinomatosis. ABDOMINAL WALL: No significant hernia is appreciated. Stranding of the subcutaneous fat and thickening of the lower abdominal wall questionable for cellulitis. LYMPH NODES: Small retroperitoneal lymph nodes. No enlarged lymph nodes. VASCULAR: Atherosclerotic disease. No aneurysm. PELVIC VISCERA: Uterus does not appear enlarged. There is low-attenuation seen in the endometrial cavity questionable 9 mm. There is question of a left adnexal cyst measuring 2.5 x 3.5 cm axial image 72 series 3. Right adnexa appears unremarkable. OSSEOUS STRUCTURES: Degenerative changes of the spine. No fracture or bone lesion. CT/CT abdomen pelvis w IV con IMPRESSION: Large amount of ascites. Peritoneal thickening. Appearance is concerning for possible peritoneal carcinomatosis. Low-attenuation in the central uterus questionable for endometrial fluid or thickening. This measures 9 mm. Question 2.5 x 3.5 cm left adnexal cyst. Follow-up pelvic ultrasound recommended. Diverticulosis. No evidence of diverticulitis or obstruction. Fleischner guidelines were followed.
--- NOTE | ~2023-03-14 | US_ITS ---
ULTRASOUND PARACENTESIS HISTORY: New Ascites. Risks and benefits and possible complications were discussed with the patient and consent form was signed. A safe pocket of ascitic fluid in the right lower quadrant was identified using ultrasound guidance, and the overlying skin was marked, prepped and draped in sterile fashion. 1% lidocaine was used as a local anesthetic for the skin, subcutaneous tissues, and peritoneum. Using ultrasound guidance, a 5 fr catheter was placed into the ascitic pocket. 5.0 liters of yellow fluid was removed passively. The catheter was then removed. Fluid was sent for analysis. A few traveling representative images from before and after the examination were obtained. The procedure was performed by Mark Cote PA-C and supervised by Dr. Lewis. US/US paracentesis abd w/image IMPRESSION: Ultrasound-guided paracentesis as described above. Removal of 5 L yellow ascitic fluid. A sample was sent for laboratory analysis. No immediate complications.
--- NOTE | ~2023-03-14 | XR_ITS ---
EXAMINATION: XR ABDOMEN KUB CLINICAL INDICATION: Abdominal pain COMPARISON: None available. TECHNIQUE: AP view of the abdomen. FINDINGS: The bowel gas pattern is normal with no evidence of ileus or obstruction. No unusual soft tissue calcifications are noted. Degenerative changes of the spine. XR/XR KUB IMPRESSION: Unremarkable examination.
--- NOTE | ~2023-03-14 | US_ITS ---
EXAMINATION: US PELVIS CLINICAL INFORMATION: Endometrial thickening on CT scan COMPARISON: CT abdomen pelvis yesterday 03/14/2023: Low-attenuation in the central uterus questionable for endometrial fluid or thickening. This measures 9 mm. Question 2.5 x 3.5 cm left adnexal cyst. Follow-up pelvic ultrasound recommended. TECHNIQUE: Ultrasound of the pelvis is performed using both transabdominal and transvaginal transducers along with Doppler. Transvaginal imaging is performed due to inadequate visualization transabdominally. FINDINGS: Uterus: The uterus is anteverted and measures 7.5 x 4.0 x 6.0 cm for a volume of 93 mL. The double wall endometrial thickness is 8 mm. Small amount of free fluid is present in the endometrial canal. The uterus is smooth in contour and has normal myometrial echogenicity. No visible fibroid. Adnexa: Neither ovary could be seen. A small amount of free intraperitoneal fluid is present US/US pelvic and transvaginal IMPRESSION: 1. The endometrial thickness is 8 mm which would be abnormal in a postmenopausal patient. A small amount of free fluid is present in the endometrial canal. Consider endometrial biopsy. 2. Neither ovary could be seen. 3. Small amount of free fluid in the cul-de-sac and in the cul-de-sac.
[2023-03-14 12:33] VITALS: BP 113/80; PULSE 91; RESP 18; TEMP 36.8; O2SAT 94; BMI 43.4
--- NOTE | 2023-03-14 12:41 | ED.ABDPAIN ---
HPI - Abdominal Pain General Chief Complaint: Abdominal Pain Stated Complaint: ? Blockage Upper Stomach Sent By Dr Cabezas Seen by Provider: 03/14/23 16:18 Source: patient and old records reviewed Mode of arrival: ambulatory Limitations: no limitations History of Present Illness HPI narrative: 72 yo female with PMH of chronic back pain, asthma, COPD, arthritis, ERNIE, hiatal hernia, GERD, hiatal hernia, s/p bowel resection, appendectomy, cholecystectomy, who presents with c/o constipation on and off 3 to 4 days than has BM and feels a little better. This has been going on a couple of weeks. She also notes her abdomen has been getting distended in the upper abdomen making it tense and hard to breathe. She also had urinary incontinence but no back pain. She has not had a good BM since yesterday or passed gas since yesterday. No n/v. No fevers. MD elicited complaint: abdominal pain Pertinent past history: constipation Onset (ago): week(s) Pain Consistency: intermittent Location: epigastric Severity: moderate Quality: aching and fullness Radiation: L flank and R flank Migration to: no migration Exacerbating factors: eating Relieving factors: bowel movement Associated symptoms: constipation and other (urinary incontinence) Related Data Home Medications Medication Instructions Recorded Confirmed immune glob G 10 gram/100 See Rx Instructions .Route .COMPLEX 04/08/20 10/25/22 mL(10%)-gly-IgA ave 46 mcg/mL injection soln (Gamunex-C) lactobacillus combination no.9 4 4,000 mmu cells PO DAILY 05/27/20 10/25/22 billion cell capsule (Adult 50 Plus Probiotic) acetaminophen 650 mg 650 mg PO Q12H 08/24/21 10/25/22 tablet,extended release (Tylenol Arthritis Pain) Previous Rx's Medication Instructions Recorded albuterol sulfate 90 mcg/actuation 2 puff inhalation Q4-6H PRN 12/01/21 aerosol inhaler (ProAir HFA) shortness of breath or wheezing #1 ea hydrochlorothiazide 25 mg tablet 25 mg PO DAILY 90 days #90 tabs 04/20/22 celecoxib 200 mg capsule 200 mg PO DAILY PRN pain #30 caps 01/10/23 atenolol 25 mg tablet 25 mg PO DAILY 90 days #90 tabs 02/01/23 ezetimibe 10 mg tablet 10 mg PO DAILY #90 tabs 10/03/23 Allergies Allergy/AdvReac Type Severity Reaction Status Date / Time cephalexin [Keflex] Allergy Unknown anaphylaxis Verified 03/14/23 12:20 glycine [From GAMMAGARD S/D] AdvReac Unknown WEAKNESS Verified 03/14/23 12:20 IgA less than or equal to 50 AdvReac Unknown WEAKNESS Verified 03/14/23 12:20 mcg/mL [From GAMMAGARD S/D] immune globulin,gamma (IgG) AdvReac Unknown WEAKNESS Verified 03/14/23 12:20 human [From GAMMAGARD S/D] Penicillins [PENICILLINS] AdvReac Unknown DIARRHEA Verified 03/14/23 12:20 atorvastatin AdvReac muscle ache Verified 03/14/23 12:20 pravastatin AdvReac Muscle pain Verified 03/14/23 12:20 Review of Systems Review of Systems Constitutional : No Weight loss, No Fever, No Chills ENT/Mouth : No sore throat, No Rhinorrhea Eyes: No Swelling, No Redness Cardiovascular : No Chest Pain, No SOB, NoEdema Respiratory : No Cough, No Sputum, No Wheezing Gastrointestinal : no Nausea, no Vomiting, no Diarrhea, positive abdominal Pain, No Hematochezia, No Melena, pos constipation Genitourinary : No Dysuria, No Urinary Frequency, No Hematuria, No Urgency Musculoskeletal : No joint pain, No Myalgias, No Joint Swelling Skin : No Skin Lesions, No rash Neuro : No Weakness, No Numbness, No Dizziness, No Headache Psych : No Anxiety/Panic, No Depression All other systems reviewed and are negative. [facility] Past Medical History Attestation statement: The following information was validated with the patient. Source: old records reviewed Medical History 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 pain with right-sided sciatica Post-menopause Vitamin D deficiency Myalgia due to statin Moderate persistent asthma in adult without complication Tubular adenoma of colon Nonfamilial hypogammaglobulinemia Trigger finger De Quervain's disease (radial styloid tenosynovitis) Osteoarthritis of knee ERNIE (obstructive sleep apnea) Hiatal hernia Impaired fasting glucose Mixed dyslipidemia Hypertension COPD (chronic obstructive pulmonary disease) Surgical History History of colonoscopy with polypectomy History of bilateral knee replacement Hx of tonsillectomy Hx of cholecystectomy History of bowel resection Hx of appendectomy Family History Family History Mother HTN (hypertension) Uterine cancer Father Colon cancer Sister CVA (cerebral vascular accident) Breast cancer, Onset Age: 50 Social History Social History Household Members: Family Household Members Other:: and son Housing: House Do you presently have visiting nurse or other home services: No Alcohol intake: never Patient Tobacco Use Status: Former Tobacco user Tobacco use type: Cigarette Years Smoked: 15 Years Smoked in Last 30 Days: No e-Cigarette/Vaping Use: Never Used Use of substances other than those prescribed or required for medical reasons: No Advance Directives: Yes Advance Directives Information Provided: No Advance Directives on File: No service: No Current occupational status: retired Cognitive needs: No Hearing needs: No Vision needs: Yes Physical Exam ED Vital Signs: Vital Signs - 24 hr 03/14/23 12:33 03/14/23 16:47 Temperature 98.3 F Pulse Rate 91 82 Respiratory Rate 18 20 Blood Pressure 113/80 136/88 Pulse Oximetry 94 94 Oxygen Delivery Method Room Air Room Air BMI result Body Mass Index 43.4 Appearance: Alert. Oriented X3. No acute distress. Eyes: Pupils equal, round and reactive to light. ENT: Pharynx normal. Neck: Normal inspection. Neck supple. CVS: Normal heart rate and rhythm. Pulses normal. Respiratory: No respiratory distress. Breath sounds normal. Abdomen: Firm in epigastric area with distention, no ttp, decreased bowel sounds Skin: Skin warm and dry. Normal skin color. Normal skin turgor. Extremities: No lower extremity edema. No calf ttp Neuro: Oriented X 3. No motor deficit. No sensory deficit. Course Course Course Narrative: This is an RME: Additional HPI, ROS, PE not included below will be deferred to primary provider. This is a 72-year-old female presenting to the emergency department for evaluation of abdominal pain. Patient states that she has had abdominal distension and abdominal tenderness for the last 2 weeks. She states that she has had severe constipation. No fevers, chills, abdomen is distended. No exquisite tenderness on palpation. Vital signs within normal limits. Plan: Labs, KUB, UA Medical Decision Making Medical Decision Making MDM Narrative: 72 yo female with PMH of chronic back pain, asthma, COPD, arthritis, ERNIE, hiatal hernia, GERD, hiatal hernia, s/p bowel resection, appendectomy, cholecystectomy, here with constipation intermittent now with urinary incontinence but no back pain that is new or worse, lack of flatus and BM in a day. At this time will need basic labs, CT scan for mass/obstruction/constipation/rectal impaction causing symptoms. Differential Diagnosis Differential Diagnoses: The differential diagnosis associated with the presentation includes bowel obstruction, diverticulitis, constipation, ascites, mass Admission/Observation Consideration of admission/observation: Escalation of care including admission/observation considered will admit for IR procedure, possible US vs MRI did discuss with hospitalist who will admit discussed findings and concerns with patient and Consult Healthcare Provider Management of the patient was discussed with: Hospitalist (agrees to admit) Lab Data MDM Lab Attestation statement: I reviewed the patient's lab results. 03/14/23 13:00 03/14/23 13:00 Labs: Lab Results 03/14/23 03/14/23 Range/Units 13:00 14:34 WBC 9.5 (4.8-10.8) X10*3/uL RBC 6.05 H (4.20-5.50) X10*6/uL Hgb 14.6 (12.0-16.0) g/dl Hct 47.6 H (37.0-47.0) % MCV 78.7 L (80.0-98.0) fL MCH 24.1 L (27.0-33.0) pg MCHC 30.7 L (31.0-35.0) g/dl RDW 15.4 (11.0-16.0) % Plt Count 455 H D (160-400) X10*3/uL MPV 10.0 (9.4-12.3) fL Immature Gran % (Auto) 0.3 (0.0-0.4) % Neut % (Auto) 65.4 (45-73) % Lymph % (Auto) 25.8 (20-40) % [place] % (Auto) 7.3 (2-11) % Eos % (Auto) 0.7 (0-4) % Baso % (Auto) 0.5 (0-2) % Lymph # (Auto) 2.5 (1.2-4.9) X10*3/uL [place] # (Auto) 0.7 (0.1-1.2) X10*3/uL Eos # (Auto) 0.1 (0.0-0.4) X10*3/uL Baso # (Auto) 0.1 (0.0-0.2) X10*3/uL Abs Immat Gran (auto) 0.03 (0.00-0.03) X10*3/uL Absolute Neuts (auto) 6.2 (2.0-8.3) x10*3/uL Absolute Nucleated RBC 0.000 (0.0-0.012) X10*3/uL Nucleated RBC % (auto) 0.0 (0.0-0.2) /100WBC Sodium 140 (135-145) mmol/L Potassium 3.8 (3.3-5.1) mmol/L Chloride 103 (96-108) mmol/L Carbon Dioxide 27 (22-29) mmol/L Anion Gap 14 (12-20) BUN 30 H (9-16) mg/dL Creatinine 0.93 (0.5-1.4) mg/dL Estim Creat Clear Calc 68.9 Estimated GFR 59 Random Glucose 114 (60-115) mg/dL Calcium 9.7 (8.4-10.2) mg/dL Total Bilirubin 1.3 H (0.0-1.0) mg/dL Direct Bilirubin 0.3 (0.0-0.5) mg/dL AST 22 (5-31) U/L ALT 15 (0-31) U/L Alkaline Phosphatase 108 (39-117) U/L Total Protein 7.4 (6.5-8.0) g/dL Albumin 4.0 (3.5-5.0) g/dL Lipase 31 (8-78) U/L Urine Color Dark Yellow Urine Appearance Cloudy Urine pH 6.0 (5.0-9.0) Ur Specific [place] >= 1.030 H (1.005-1.025) Urine Protein Trace (Neg-Trace) mg/dL Urine Glucose (UA) Negative (Negative) mg/dL Urine Ketones Trace (Negative) mg/dL Urine Blood Negative (Negative) Urine Nitrite Negative (Negative) Ur Leukocyte Esterase Moderate (2+) H (Negative) Urine RBC 3-5 H (0-2) /HPF Urine WBC 11-20 H (0-5) /HPF Ur Squamous Epith Cells 11-20 (0-2) /HPF Urine Bacteria 1+ (None Seen) Hyaline Casts 6-10 (0-2) /LPF Independent Interpretation I performed an independent interpretation of an: Plain X-Ray (no SBO) and CT Scan (carcinomatosis) Radiology Impression Discussion of test interpretation with radiology: I have reviewed the radiologist's reading. Independent Historian Clinical information obtained from an independent historian. History obtained from or confirmed by: Spouse External Record Review External record reviewed: Inpatient record and Office record Medications Administered Discontinued Medications Generic Name Dose Route Start Last Admin Trade Name Freq PRN Reason Stop Dose Admin Sodium Chloride 500 mls @ 500 mls/hr 03/14/23 16:30 03/14/23 18:12 Ns IV 03/14/23 17:29 Infused .Q1H CHARAN Infusion Iohexol 85 ml 03/14/23 17:27 03/14/23 17:28 Iohexol 350 Mg/Ml 100 Ml Infus..Btl IV 03/14/23 17:28 85 ml ONCE ONE Administration Ondansetron HCl 4 mg 03/14/23 16:20 03/14/23 16:53 Ondansetron Hcl 4 Mg/2 Ml Vial IVPUSH 03/14/23 16:21 4 mg ONCE ONE Administration Discharge Plan Discharge Clinical Impression: Mass of left ovary Abdominal pain Qualifiers: Abdominal location: generalized Qualified Code(s): R10.84 - Generalized abdominal pain Abdominal ascites Qualifiers: Ascites type: other type Qualified Code(s): R18.8 - Other ascites Patient Disposition: Admitted As Inpatient Prescriptions: No Action albuterol sulfate [ProAir HFA] 90 mcg/actuation HFA aerosol inhaler 2 puff inhalation Q4-6H PRN (Reason: shortness of breath or wheezing) Qty: 1 11RF hydrochlorothiazide 25 mg tablet 25 mg PO DAILY 90 Days Qty: 90 3RF celecoxib 200 mg capsule 200 mg PO DAILY PRN (Reason: pain) Qty: 30 5RF atenolol 25 mg tablet 25 mg PO DAILY 90 Days Qty: 90 1RF ezetimibe 10 mg tablet 10 mg PO DAILY Qty: 90 1RF Gamunex-C 10 gram/100 mL (10 %) solution See Rx Instructions .ROUTE .COMPLEX Rx Instructions: unknown Adult 50 Plus Probiotic 4 billion cell capsule 4,000 mmu cells PO DAILY Rx Instructions: administer with a meal acetaminophen [Tylenol Arthritis Pain] 650 mg tablet extended release 650 mg PO Q12H
[2023-03-14 13:03] LABS: MANUAL DIFF FLAG NO
[2023-03-14 13:05] LABS: Basophils Absolute Auto 0.1 X10*3/uL (0.0-0.2); Basophils Percent Auto 0.5 % (0-2); Eosinophils Absolute Auto 0.1 X10*3/uL (0.0-0.4); Eosinophils Percent Auto 0.7 % (0-4); Hematocrit 47.6 % (37.0-47.0); Hemoglobin 14.6 g/dl (12.0-16.0); Imm Gran Abs Auto 0.03 X10*3/uL (0.00-0.03); Imm Gran Pct Auto 0.3 % (0.0-0.4); Lymphocytes Absolute Auto 2.5 X10*3/uL (1.2-4.9); Lymphocytes Percent Auto 25.8 % (20-40); Mean Corpuscular HGB Conc 30.7 g/dl (31.0-35.0); Mean Corpuscular Hemoglobin 24.1 pg (27.0-33.0); Mean Corpuscular Volume 78.7 fL (80.0-98.0); Monocytes Absolute Auto 0.7 X10*3/uL (0.1-1.2); Monocytes Percent Auto 7.3 % (2-11); Neutrophils Absolute Auto 6.2 x10*3/uL (2.0-8.3); Neutrophils Percent Auto 65.4 % (45-73); Platelet Count 455 X10*3/uL (160-400); Red Blood Count 6.05 X10*6/uL (4.20-5.50); Red Cell Distribution Width 15.4 % (11.0-16.0); White Blood Count 9.5 X10*3/uL (4.8-10.8)
[2023-03-14 13:21] LABS: Alanine Aminotransferase 15 U/L (0-31); Alkaline Phosphatase 108 U/L (39-117); Anion Gap 14 (12-20); Aspartate Amino Transferase 22 U/L (5-31); Bilirubin Direct 0.3 mg/dL (0.0-0.5); Bilirubin Total 1.3 mg/dL (0.0-1.0); Blood Urea Nitrogen 30 mg/dL (9-16); Calcium 9.7 mg/dL (8.4-10.2); Carbon Dioxide 27 mmol/L (22-29); Chloride 103 mmol/L (96-108); Creatinine Clr Calc Pharmacy 68.9; Estimated Glomerular Filt Rate 59; Glucose Random 114 mg/dL (60-115); Lipase 31 U/L (8-78); Potassium 3.8 mmol/L (3.3-5.1); Sodium 140 mmol/L (135-145); Total Protein 7.4 g/dL (6.5-8.0)
[2023-03-14 14:44] LABS: Appearance Urine Cloudy; Color Urine Dark Yellow; Glucose Urine UA Negative (Negative); Leukocyte Esterase Urine Moderate (2+) (Negative); Nitrite Urine Negative (Negative); Specific Gravity - Urine >= 1.030 (1.005-1.025); UMIC TRIGGER UACC YES; Urine Blood Negative (Negative); Urine Ketones Trace mg/dL (Negative); Urine Protein Trace mg/dL (Neg-Trace)
[2023-03-14 14:54] LABS: Bacteria Urine 1+ (None Seen); UACC Culture Trigger YES
[2023-03-14 16:47] VITALS: BP 136/88; PULSE 82; RESP 20; O2SAT 94
[2023-03-14] MEDS: 0.9 % Sodium Chloride 500 ML IV (16:53)
[2023-03-14] MEDS: ondansetron HCL 4 MG/2 ML VIAL IVPUSH (16:53)
[2023-03-14] MEDS: iohexoL 350 MG/ML 100 ML INFUS..BTL 85 ML IV (17:28)
[2023-03-14 19:29] VITALS: BP 140/75; PULSE 97; RESP 18; TEMP 36.6; O2SAT 95
--- NOTE | 2023-03-14 19:31 | MHC.EDTECH ---
This tech took over care of patient at 1900,hourly rounds and vitals completed. Belonging list completed and copy placed in chart. Call juarez within reach and at bedside
--- NOTE | 2023-03-14 19:36 | P.HPHOSP_ITS ---
History of Present Illness Date of Service: 03/14/23 Chief Complaint: Abdominal swelling This is a 72-year-old female with pertinent history of essential hypertension, chronic back pain, non familial hypogammaglobulinemia, mixed hyperlipidemia who presents to the emergency department for evaluation of abdominal swelling. Patient states she has been having abdominal swelling which has been progressive for the last 4-6 weeks. No similar history in the past. No personal history of endometrial or ovarian cancer. No history of ascites. No liver disease, heart failure. Patient states she has had abdominal discomfort due to the swelling and intermittent constipation. No fever, chills, chest discomfort, palpitations, changes in urinary habits. Does have occasional dyspnea due to abdominal swelling. In the ER, imaging concerning for large amount of ascites and possible peritoneal carcinomatosis. Review of Systems 2 Constitutional: Constitutional: Reports fatigue and Reports lethargy Cardiovascular: Cardiovascular: Reports no additional cardiovascular complaints Respiratory: Respiratory: Reports no additional respiratory complaints Gastrointestinal: Gastrointestinal: Reports abdominal pain, Reports change in bowel habits, Reports constipation, Reports GI cramping and Reports early satiety Genitourinary: Genitourinary: Reports no additional female genitourinary complaints Endocrine: Endocrine: Reports fatigue PENDING SALE TO [facility] Medical History 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 pain with right-sided sciatica Post-menopause Vitamin D deficiency Myalgia due to statin Moderate persistent asthma in adult without complication Tubular adenoma of colon Nonfamilial hypogammaglobulinemia Trigger finger De Quervain's disease (radial styloid tenosynovitis) Osteoarthritis of knee ERNIE (obstructive sleep apnea) Hiatal hernia Impaired fasting glucose Mixed dyslipidemia Hypertension COPD (chronic obstructive pulmonary disease) Family History Mother HTN (hypertension) Uterine cancer Father Colon cancer Sister CVA (cerebral vascular accident) Breast cancer, Onset Age: 50 Surgical History History of colonoscopy with polypectomy History of bilateral knee replacement Hx of tonsillectomy Hx of cholecystectomy History of bowel resection Hx of appendectomy Social History Household Members: Family Household Members Other:: and son Housing: House Do you presently have visiting nurse or other home services: No Alcohol intake: never Patient Tobacco Use Status: Former Tobacco user Tobacco use type: Cigarette Years Smoked: 15 Years Smoked in Last 30 Days: No e-Cigarette/Vaping Use: Never Used Use of substances other than those prescribed or required for medical reasons: No Advance Directives: Yes Advance Directives Information Provided: No Advance Directives on File: No service: No Current occupational status: retired Cognitive needs: No Hearing needs: No Vision needs: Yes Meds Allergies Allergy/AdvReac Type Severity Reaction Status Date / Time cephalexin [Keflex] Allergy Unknown anaphylaxis Verified 03/14/23 12:20 glycine [From GAMMAGARD S/D] AdvReac Unknown WEAKNESS Verified 03/14/23 12:20 IgA less than or equal to 50 AdvReac Unknown WEAKNESS Verified 03/14/23 12:20 mcg/mL [From GAMMAGARD S/D] immune globulin,gamma (IgG) AdvReac Unknown WEAKNESS Verified 03/14/23 12:20 human [From GAMMAGARD S/D] Penicillins [PENICILLINS] AdvReac Unknown DIARRHEA Verified 03/14/23 12:20 atorvastatin AdvReac muscle ache Verified 03/14/23 12:20 pravastatin AdvReac Muscle pain Verified 03/14/23 12:20 Home Medications Medication Instructions Recorded Confirmed Last Taken Type immune glob G 10 gram/100 See Rx Instructions .Route .COMPLEX 04/08/20 03/14/23 03/06/23 History mL(10%)-gly-IgA ave 46 mcg/mL injection soln (Gamunex-C) lactobacillus combination no.9 4 4,000 mmu cells PO DAILY 05/27/20 03/14/23 03/14/23 History billion cell capsule (Adult 50 Plus Probiotic) acetaminophen 500 mg tablet 1,000 mg PO DAILY 03/14/23 03/14/23 03/14/23 History acetaminophen 500 mg tablet 1,000 mg PO BEDTIME PRN Pain 03/14/23 03/14/23 Unknown History (Tylenol Extra Strength) celecoxib 200 mg capsule 200 mg PO DAILY pain 03/14/23 03/14/23 03/14/23 History cholecalciferol (vitamin D3) 25 25 mcg PO DAILY 03/14/23 03/14/2303/14/23 History mcg (1,000 unit) tablet coenzyme Q10 400 mg capsule (Co 400 mg PO DAILY 03/14/23 03/14/23 03/14/23 History Q-10) docusate sodium 100 mg capsule 100 mg PO DAILY 03/14/23 03/14/23 03/14/23 History (Colace) Physical Exam 2 Vital Signs and Narrative: Vital Signs: Last Vital Signs Temp 97.8 F 03/14/23 19:29 Pulse 97 03/14/23 19:29 Resp 18 03/14/23 19:29 BP 140/75 H 03/14/23 19:29 Pulse Ox 95 03/14/23 19:29 O2 Del Method Room Air 03/14/23 19:29 BMI result Body Mass Index 43.4 Middle-aged male lying in bed in no distress Neck supple, no JVD Regular rate and rhythm, S1-S2 heard Regular breath sounds bilaterally, no wheezing or crackles appreciated Abdomen tense with fluid wave, nontender, no guarding, no rigidity Patient is awake, alert and oriented to self, place, time and person ; no focal motor deficit Psych: Normal mood No pedal edema Results Labs 03/14/23 13:00 03/14/23 13:00 Labs: Laboratory Results - last 24 hr 03/14/23 03/14/23 13:00 14:34 MCV 78.7 L MCH 24.1 L MCHC 30.7 L RDW 15.4 Plt Count 455 H D MPV 10.0 Immature Gran % (Auto) 0.3 Neut % (Auto) 65.4 Lymph % (Auto) 25.8 [place] % (Auto) 7.3 Eos % (Auto) 0.7 Baso % (Auto) 0.5 Lymph # (Auto) 2.5 [place] # (Auto) 0.7 Eos # (Auto) 0.1 Baso # (Auto) 0.1 Abs Immat Gran (auto) 0.03 Absolute Neuts (auto) 6.2 Absolute Nucleated RBC 0.000 Nucleated RBC % (auto) 0.0 Anion Gap 14 Estim Creat Clear Calc 68.9 Estimated GFR 59 Random Glucose 114 Calcium 9.7 Total Bilirubin 1.3 H Direct Bilirubin 0.3 AST 22 ALT 15 Alkaline Phosphatase 108 Total Protein 7.4 Albumin 4.0 Lipase 31 Urine Color Dark Yellow Urine Appearance Cloudy Urine pH 6.0 Ur Specific [place] >= 1.030 H Urine Protein Trace Urine Glucose (UA) Negative Urine Ketones Trace Urine Blood Negative Urine Nitrite Negative Ur Leukocyte Esterase Moderate (2+) H Urine RBC 3-5 H Urine WBC 11-20 H Ur Squamous Epith Cells 11-20 Urine Bacteria 1+ Hyaline Casts 6-10 Imaging Radiologist's Impressions: Impressions KUB X-Ray 03/14/23 13:22 IMPRESSION: Unremarkable examination. Abdomen/Pelvis CT 03/14/23 17:28 IMPRESSION: Large amount of ascites. Peritoneal thickening. Appearance is concerning for possible peritoneal carcinomatosis. Low-attenuation in the central uterus questionable for endometrial fluid or thickening. This measures 9 mm. Question 2.5 x 3.5 cm left adnexal cyst. Follow-up pelvic ultrasound recommended. Diverticulosis. No evidence of diverticulitis or obstruction. Fleischner guidelines were followed. Assessment and Plan (1) Abdominal ascites: Qualifiers: Ascites type: other type Qualified Code(s): R18.8 - Other ascites Status: Acute Plan This is a 72-year-old female with pertinent history of essential hypertension, chronic back pain, non familial hypogammaglobulinemia, mixed hyperlipidemia who presents to the emergency department for evaluation of abdominal swelling. #. Abdominal ascites, unclear etiology: Will admit patient and order IR guided paracentesis. Ascites labs pending to calculate SAAG. Does have peritoneal thickening and there is concern for underlying peritoneal carcinomatosis. Also questionable left adnexal cyst. Cytology of ascites fluid pending. Consulted Oncology, appreciate assistance. Ordered CA 125. #. Essential hypertension: Continue home antihypertensives #. Non familial hypogammaglobulinemia: On gamunex q3 wk as an outpatient #. Mixed HLD: On ezetimibe Med rec pending DVT prophylaxis: Mechanical Quality Stroke Does the patient have a stroke diagnosis?: No VTE Prior VTE?: No VTE Risk Level:: Medical - moderate - high VTE Device Contraindication: N/A - Device Ordered VTE Drug Contraindication: Treatment Not Indicated
--- NOTE | 2023-03-14 19:50 | PHA.MEDREC ---
Pharmacy Consult ? Medication Reconciliation Pharmacy has completed the medication reconciliation. Patient reported medications. Carol Blackburn, ShiraD
[2023-03-14 21:03] LABS: INTERNATIONAL NORM RATIO 0.9 (0.9-1.1); Prothrombin Time 11.3 SEC (11.1-13.3)
[2023-03-14 21:06] LABS: Partial Thromboplastin Time 31.3 SEC (26.0-36.4)
--- NOTE | 2023-03-14 22:04 | MHC.EDTECH ---
Hourly rounds completed,patient was giving a sandwich and a can of gingerale, patient ate 100%. Patient will be NPO after midnight. Commode placed in room for patient and warm blankets giving. Call ann pedroza
--- NOTE | 2023-03-14 23:49 | MHC.EDTECH ---
Hourly rounds completed,patient is sleeping at this time and has a bed assignment at this time waiting for report to be given.
--- NOTE | 2023-03-15 00:02 | PC.NURSE ---
report given to eloy SHARMA on [facility]. pt going to bed 485.
[2023-03-15 00:30] VITALS: BP 150/67; PULSE 79; RESP 17; TEMP 37.1; O2SAT 97
[2023-03-15 00:54] VITALS: BMI 42.6
[2023-03-15] MEDS: 0.9 % Sodium Chloride Flush 3 ML SYRINGE IVFLUSH ×3 (01:02→16:27)
[2023-03-15 03:55] VITALS: BP 147/86; PULSE 77; RESP 18; TEMP 36.7; O2SAT 98
[2023-03-15 07:06] LABS: MANUAL DIFF FLAG NO
[2023-03-15 07:13] LABS: Basophils Percent Auto 0.4 % (0-2); Eosinophils Absolute Auto 0.1 X10*3/uL (0.0-0.4); Eosinophils Percent Auto 1.1 % (0-4); Hematocrit 41.6 % (37.0-47.0); Hemoglobin 12.5 g/dl (12.0-16.0); Imm Gran Abs Auto 0.02 X10*3/uL (0.00-0.03); Imm Gran Pct Auto 0.3 % (0.0-0.4); Lymphocytes Absolute Auto 1.6 X10*3/uL (1.2-4.9); Lymphocytes Percent Auto 22.6 % (20-40); Mean Corpuscular Hemoglobin 23.5 pg (27.0-33.0); Mean Corpuscular Volume 78.3 fL (80.0-98.0); Mean Platelet Volume 9.7 fL (9.4-12.3); Monocytes Absolute Auto 0.5 X10*3/uL (0.1-1.2); Monocytes Percent Auto 7.5 % (2-11); Neutrophils Absolute Auto 4.9 x10*3/uL (2.0-8.3); Neutrophils Percent Auto 68.1 % (45-73); Platelet Count 380 X10*3/uL (160-400); Red Blood Count 5.31 X10*6/uL (4.20-5.50); White Blood Count 7.2 X10*3/uL (4.8-10.8)
[2023-03-15 07:35] LABS: Anion Gap 13 (12-20); Blood Urea Nitrogen 28 mg/dL (9-16); Calcium 9.2 mg/dL (8.4-10.2); Carbon Dioxide 30 mmol/L (22-29); Chloride 104 mmol/L (96-108); Creatinine Clr Calc Pharmacy 81.3; Estimated Glomerular Filt Rate > 60; Glucose Random 109 mg/dL (60-115); Potassium 3.5 mmol/L (3.3-5.1); Sodium 143 mmol/L (135-145)
[2023-03-15 07:58] VITALS: BP 135/62; PULSE 78; RESP 20; TEMP 35.9; O2SAT 96
[2023-03-15 08:46] LABS: Alanine Aminotransferase 14 U/L (0-31); Albumin Level 3.8 g/dL (3.5-5.0); Alkaline Phosphatase 93 U/L (39-117); Aspartate Amino Transferase 18 U/L (5-31); Bilirubin Direct 0.4 mg/dL (0.0-0.5); Bilirubin Total 1.3 mg/dL (0.0-1.0); Total Protein 6.6 g/dL (6.5-8.0)
--- NOTE | 2023-03-15 09:17 | MHC.CM.PN ---
dusty 03/15/23 Pt lives with her , she is independent and has no home health services. She has a walker and a cane at home that she used in the past following knee replacement surgery. She has [facility] PT at that time, could not recall agency, did not specify a preference if [facility] services will be recommended. Her will provide transportation home at DC, DC plan is home, self care. CM to follow and assist with DC plan.
[2023-03-15] MEDS: Lidocaine HCl 1 % MPF 5 ML VIAL 10 ML SUBCUT (10:20)
--- NOTE | 2023-03-15 10:29 | PM.HEMONCCN ---
Subjective - Subjective Chief complaint: Consult for: Peritoneal metastases. Patient: new to practice Consult date: 03/15/23 Requesting Physician: Prieto. Primary Care Provider: Stephanie Castle MD Medical Summary: CONSULT FOR: PERITONEAL DISEASE. HPI - Consult Narrative Reason for consult: Consult for: Peritoneal carcinomatosis. Narrative: Kamille Palacios is a 72 year old lady, referred on account of peritoneal carcinomatosis. She tells me she started noticing constipation the over the past month or so. She has been taking Colace and suppository. She has had occasional abdominal twitching over the past month or 2. She has had back trouble. She has had L4/L5 fusion. She then noted urinary incontinence. She started using boy is pads. Lately she also noted difficulty breathing. She had presented to the emergency department yesterday for evaluation of abdominal swelling. She has been having abdominal swelling which has been progressive for the last 4-6 weeks. She has also had abdominal discomfort due to the swelling and intermittent constipation. No fever, chills, chest discomfort, palpitations, changes in urinary habits. Does have occasional dyspnea due to abdominal swelling. No history of endometrial or ovarian cancer. No history of ascites. No liver disease, heart failure. CT abdomen from 03/14 revealed: Large amount of ascites. Peritoneal thickening. Appearance is concerning for possible peritoneal carcinomatosis. Low-attenuation in the central uterus questionable for endometrial fluid or thickening. This measures 9 mm. Question 2.5 x 3.5 cm left adnexal cyst. Follow-up pelvic ultrasound recommended. Diverticulosis. No evidence of diverticulitis or obstruction. CT abdomen from 03/14 revealed: Large amount of ascites. Peritoneal thickening. Appearance is concerning for possible peritoneal carcinomatosis. Low-attenuation in the central uterus questionable for endometrial fluid or thickening. This measures 9 mm. Question 2.5 x 3.5 cm left adnexal cyst. Follow-up pelvic ultrasound recommended. Diverticulosis. No evidence of diverticulitis or obstruction. Imaging concerning for large amount of ascites and possible peritoneal carcinomatosis. Review of Systems Constitutional: Constitutional: Complains of fatigue and lethargy. No fever chills no night sweats. Appetite it is okay however she started gaining weight Lately has had headaches. No dizziness. Cardiovascular: Cardiovascular: Reports no additional cardiovascular complaints Respiratory: Respiratory: Has noticed shortness of breath. Gastrointestinal: Gastrointestinal: Reports abdominal pain, Reports change in bowel habits: constipation, Reports abdominal cramping and early satiety Genitourinary: Genitourinary: Has had urinary incontinence. Reports no additional female genitourinary complaints. Musculoskeletal: Arthritis. Back pain. Psychiatric: Denies depression. Dermatological: No skin rashes no pruritus. Endocrine: Endocrine: Reports fatigue [facility] Medical History: Essential hypertension, chronic back pain. Non familial hypogammaglobulinemia: She has been getting IVIG Gamunex Q 3 weekly. hyperlipidemia. 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 pain with right-sided sciatica Post-menopause Vitamin D deficiency Myalgia due to statin Moderate persistent asthma in adult without complication Tubular adenoma of colon Nonfamilial hypogammaglobulinemia Trigger finger De Quervain's disease (radial styloid tenosynovitis) Osteoarthritis of knee ERNIE (obstructive sleep apnea) Hiatal hernia Impaired fasting glucose Mixed dyslipidemia Hypertension COPD (chronic obstructive pulmonary disease) Family History: Mother HTN (hypertension) Uterine cancer Father Colon cancer Sister CVA (cerebral vascular accident) SOCIAL HISTORY: 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 She is . Has 3 children. She used to smoke a pack-a-day quit 20 years ago. Denies alcohol. Review of Systems - Constitutional Reports system reviewed and no additional complaints, except as documented, Reports anorexia, Reports lack of energy, Reports weakness, Reports weight gain, Denies fever(s), Denies headache(s) - Eyes Reports system reviewed and no additional complaints, except as documented - ENT Reports system reviewed and no additional complaints, except as documented - Cardiovascular Reports system reviewed and no additional complaints, except as documented - Respiratory Reports no additional respiratory complaints - Gastrointestinal Reports system reviewed and no additional complaints, except as documented - Genitourinary Reports no additional female genitourinary complaints - Musculoskeletal Reports system reviewed and no additional complaints, except as documented - Integumentary/Breasts Skin/Breast: Reports no additional skin complaints - Neurologic Reports system reviewed and no additional complaints, except as documented - Psychiatric Reports system reviewed and no additional complaints, except as documented - Endocrine Reports no additional endocrine complaints - Hematologic/Lymphatic Reports system reviewed and no additional complaints, except as documented - Allergic/Immunologic Reports system reviewed and no additional complaints, except as documented Oncology Screenings - ECOG Performance Status ECOG Performance Status: 2 [facility] Medical History: Medical History (Last Reviewed 03/14/23 @ 19:57 by Star Moreau MD) Breast calcification, left Chronic low back pain with right-sided sciatica COPD (chronic obstructive pulmonary disease) De Quervain's disease (radial styloid tenosynovitis) Fibroadenoma Hiatal hernia Hypertension Impaired fasting glucose Lumbar disc herniation with radiculopathy Mixed dyslipidemia Moderate persistent asthma in adult without complication Myalgia due to statin Nonfamilial hypogammaglobulinemia ERNIE (obstructive sleep apnea) Osteoarthritis of knee Post-menopause Trigger finger Tubular adenoma of colon Vitamin D deficiency Functional capacity: uses cane/walker Patient : No Family History: Family History (Last Reviewed 03/14/23 @ 19:57 by Star Moreau MD) Mother HTN (hypertension) Uterine cancer Father Colon cancer Sister CVA (cerebral vascular accident) Breast cancer, Onset Age: 50 Surgical History: Surgical History (Last Reviewed 03/14/23 @ 19:57 by Star Moreau MD) History of bilateral knee replacement History of bowel resection History of colonoscopy with polypectomy Hx of appendectomy Hx of cholecystectomy Hx of tonsillectomy Social History: Social History (Last Reviewed 03/14/23 @ 19:57 by Star Moreau MD) Living Situation History: Household Members: Spouse Household Members Other:: and son Housing: House Do you presently have visiting nurse or other home services: No Tobacco History: Patient Tobacco Use Status: Former Tobacco user Tobacco use type: Cigarette Years Smoked: 15 Years e-Cigarette/Vaping Use: Never Used Second Hand Smoke Exposure: No Occupation Assessmet: service: No Current occupational status: retired Home Medications and Allergies Current Medications: Current Medications Acetaminophen (Acetaminophen 325 Mg Tablet) 650 mg PO Q6H PRN PRN Reason: Pain, Mild (Pain Scale 1-3) Albuterol Sulfate (Albuterol Sulfate 90 Mcg 8 Gm Inhaler) 2 puff INHALE Q4H PRN PRN Reason: shortness of breath or wheezing Atenolol (Atenolol 25 Mg Tablet) 25 mg PO DAILY CHARAN; Protocol Ezetimibe (Ezetimibe 10 Mg Tablet) 10 mg PO DAILY CHARAN Hydrochlorothiazide (Hydrochlorothiazide 25 Mg Tablet) 25 mg PO DAILY CHARAN; Protocol Melatonin (Melatonin 3 Mg Tablet) 6 mg PO BEDTIME PRN PRN Reason: Insomnia Ondansetron HCl (Ondansetron Hcl 4 Mg/2 Ml Vial) 4 mg IVPUSH Q8H PRN PRN Reason: Nausea and Vomiting Sodium Chloride (0.9 % Sodium Chloride Flush 3 Ml Syringe) 3 ml IVFLUSH QSHIFT [facility] Last Admin: 03/15/23 01:02 Dose: 3 ml Home Medications Medication Instructions Recorded Confirmed Type immune glob G 10 gram/100 See Rx Instructions .Route .COMPLEX 04/08/20 03/14/23 History mL(10%)-gly-IgA ave 46 mcg/mL injection soln (Gamunex-C) lactobacillus combination no.9 4 4,000 mmu cells PO DAILY 05/27/20 03/14/23 History billion cell capsule (Adult 50 Plus Probiotic) acetaminophen 500 mg tablet 1,000 mg PO DAILY 03/14/23 03/14/23 History acetaminophen 500 mg tablet 1,000 mg PO BEDTIME PRN Pain 03/14/23 03/14/23 History (Tylenol Extra Strength) celecoxib 200 mg capsule 200 mg PO DAILY pain 03/14/23 03/14/23 History cholecalciferol (vitamin D3) 25 25 mcg PO DAILY 03/14/23 03/14/23 History mcg (1,000 unit) tablet coenzyme Q10 400 mg capsule (Co 400 mg PO DAILY 03/14/23 03/14/23 History Q-10) docusate sodium 100 mg capsule 100 mg PO DAILY 03/14/23 03/14/23 History (Colace) Allergies Allergy/AdvReac Type Severity Reaction Status Date / Time cephalexin [Keflex] Allergy Unknown anaphylaxis Verified 03/14/23 12:20 glycine [From GAMMAGARD S/D] AdvReac Unknown WEAKNESS Verified 03/14/23 12:20 IgA less than or equal to 50 AdvReac Unknown WEAKNESS Verified 03/14/23 12:20 mcg/mL [From GAMMAGARD S/D] immune globulin,gamma (IgG) AdvReac Unknown WEAKNESS Verified 03/14/23 12:20 human [From GAMMAGARD S/D] Penicillins [PENICILLINS] AdvReac Unknown DIARRHEA Verified 03/14/23 12:20 atorvastatin AdvReac muscle ache Verified 03/14/23 12:20 pravastatin AdvReac Muscle pain Verified 03/14/23 12:20 Physical Exam Vital signs: Vital Signs Temp 96.7 F L 03/15/23 07:58 Pulse 78 03/15/23 07:58 Resp 20 03/15/23 07:58 BP 135/62 03/15/23 07:58 Pulse Ox 96 03/15/23 07:58 O2 Del Method Room Air 03/15/23 07:58 Intake & Output 03/14/23 03/15/23 03/15/23 18:59 06:59 18:59 Intake Total 500 / 500 Output Total Balance 500 / 499 -1 / 499 Urine Output (Average ml/kg/hr) 0.00 Intake: Intake, IV Amount 500 / 500 0.9 % Sodium Chloride 500 ml @ 500 / 500 500 mls/hr IV .Q1H CHARAN Rx#: [id number] Output: Output, Urine Amount Other: NPO Yes Number of Unmeasured Voids 1 Urine Bathroom Last Bowel Movement 03/13/23 Weight 114.6 kg 112.5 kg Weight in Grams [id number] Weight 112.5 kg - Constitutional Present: mild distress - Routine HEENT Exam Head: Present: normal inspection, normocephalic Eye: Present: normal appearance ENT: Present: mucous membranes moist - Routine Neck Exam Present: supple - Routine Abdominal Exam Present: distended, tenderness - Routine Extremities Exam Present: nontender - Routine Skin Exam Present: intact - Routine Neurological Exam Present: alert, oriented X3 - Detailed Neurological Exam: Coma Scale Eye Opening: Spontaneous (4) Verbal Response: Oriented (5) Motor Response: Obeys commands (6) Ashley Coma Scale Total: 15 - Routine Psychiatric Exam Present: depressed Hem/Onc Consult Result - Labs CBC & Chem 7: 03/15/23 07:01 03/15/23 07:01 Labs: Short CBC 03/14/23 03/15/23 Range/Units 13:00 07:01 WBC 9.5 7.2 (4.8-10.8) X10*3/uL Hgb 14.6 12.5 (12.0-16.0) g/dl Hct 47.6 H 41.6 (37.0-47.0) % Plt Count 455 H D 380 (160-400) X10*3/uL BMP 03/14/23 03/15/23 13:00 07:01 Sodium 140 143 Potassium 3.8 3.5 Chloride 103 104 Carbon Dioxide 27 30 H BUN 30 H 28 H Creatinine 0.93 0.78 Calcium 9.7 9.2 Liver Function 03/14/23 03/15/23 Range/Units 13:00 07:01 Total Bilirubin 1.3 H 1.3 H (0.0-1.0) mg/dL Direct Bilirubin 0.3 0.4 (0.0-0.5) mg/dL AST 22 18 (5-31) U/L ALT 15 14 (0-31) U/L Alkaline Phosphatase 108 93 (39-117) U/L Albumin 4.0 3.8 (3.5-5.0) g/dL Urine 03/14/23 Range/Units 14:34 Urine Color Dark Yellow Urine Appearance Cloudy Urine pH 6.0 (5.0-9.0) Ur Specific [place] >= 1.030 H (1.005-1.025) Urine Protein Trace (Neg-Trace) mg/dL Urine Glucose (UA) Negative (Negative) mg/dL Assessment and Plan Patient Active problem list reviewed?: Yes (1) Peritoneal carcinomatosis Status: Acute Assessment and plan: 72-year-old lady who presents with constipation, abdominal distension and pain. CT abdomen from 03/14 revealed: Large amount of ascites. Peritoneal thickening. Appearance is concerning for possible peritoneal carcinomatosis. Low-attenuation in the central uterus questionable for endometrial fluid or thickening. This measures 9 mm. Question 2.5 x 3.5 cm left adnexal cyst. Follow-up pelvic ultrasound recommended. Diverticulosis.. No evidence of diverticulitis or obstruction. Concern is for an ovarian malignancy. PLAN: Patient is scheduled for a paracentesis today. She had removal of 5 L of fluid. She is actually feeling much better. Breathing has improved. Will obtain cytology for diagnosis. She is going down for have pelvic ultrasound. This revealed: 1. The endometrial thickness is 8 mm which would be abnormal in a postmenopausal patient. A small amount of free fluid is present in the endometrial canal. Consider endometrial biopsy. 2. Neither ovary could be seen. 3. Small amount of free fluid in the cul-de-sac and in the cul-de-sac. Meanwhile check a baseline tumor marker CA 125. This is pending. Will make further plans based upon the results. She will need a referral to micro[facility] mounter Oncology at [facility]. I will make arrangements for that. Patient wishes to go home later today. Follow-up on the outpatient basis. Thank you for the consult, I will follow along with you. CC: Corrine. - Time Spent With Patient Time Spent with Patient (in minutes): 30
[2023-03-15 10:45] LABS: MN% 92.8 %; PMN% 7.2 %; RBC Peritoneal Fluid 0.002 X10*6/uL; WBC Peritoneal Fluid 1.033 X10*3/uL
[2023-03-15] MEDS: Ezetimibe 10 MG TABLET PO (10:45)
[2023-03-15] MEDS: atenoloL 25 MG TABLET PO (10:45)
[2023-03-15] MEDS: hydroCHLOROthiazide 25 MG TABLET PO (10:45)
[2023-03-15 11:58] VITALS: BP 119/56; PULSE 72; RESP 20; TEMP 36.3; O2SAT 93
[2023-03-15 12:37] LABS: BF Shift QC OK YES; Lymphocyte Peritoneal Fl 21 %; Monocytes Peritoneal Fl 1 %; Neutrophils Peritoneal Fluid 1 %; Other Peritioneal Fl 77 %
[2023-03-15 14:18] LABS: pH Peritoneal Fluid 7.51
[2023-03-15 14:27] LABS: Albumin Peritoneal Fluid 3.7 GM/DL; Glucose Peritoneal Fluid 101 MG/DL; LDH Peritoneal Fluid 198 U/L; Total Protein Peritoneal Fluid 5.3 GM/DL
--- NOTE | 2023-03-15 14:55 | PM.DS ---
DS: Providers Provider Date of Service: 03/15/23 Date of admission: 03/14/23 19:33 Date of discharge: 03/15/23 Primary care physician: Stephanie Castle MD Consults: 03/14/23 19:53 Consult to Hematology / Oncology Routine Consulting Provider: Sadia Perez Reason for consultation: ?periconeal carcinomatosis ; ovary mass Attending physician on discharge: Keven Lemus Discharging clinician: Erika Rodríguez DS: Diagnosis Discharge Diagnosis (1) Peritoneal carcinomatosis: Status: Acute DS: Summary Hospital Course Hospital Course: From H&P on day of admission This is a 72-year-old female with pertinent history of essential hypertension, chronic back pain, non familial hypogammaglobulinemia, mixed hyperlipidemia who presents to the emergency department for evaluation of abdominal swelling. Patient states she has been having abdominal swelling which has been progressive for the last 4-6 weeks. No similar history in the past. No personal history of endometrial or ovarian cancer. No history of ascites. No liver disease, heart failure. Patient states she has had abdominal discomfort due to the swelling and intermittent constipation. No fever, chills, chest discomfort, palpitations, changes in urinary habits. Does have occasional dyspnea due to abdominal swelling. In the ER, imaging concerning for large amount of ascites and possible peritoneal carcinomatosis Abdominal pain CT showing large amount of ascites, peritoneal thickening, Concerning for possible peritoneal carcinomatosis. Also concern for possible left adnexal mass. For ascites patient underwent paracenteisis with 5L of yellow ascitic fluid was removed. Fluid studies show no evidence of SBP. SAAG done, not indicative of portal hypertension as cause of ascites. Gram stain with no organisms seen. Culture pending. Cytology pending. CA 125 obtained and is pending. Seen by oncology will follow on outpatient basis and may need referral to [facility] oncology which Dr. Perez will coordinate if necessary. Patient's abdominal pain has improved. She will be discharged home with plan for outpatient follow up for Dr. Perez Time Attestation Discharge coordination time: Greater than 30 minutes Quality: Safe Use of Opioids Does Pt have an Active Cancer Diagnosis on the Problem List?: No Quality: Stroke Does the patient have a stroke diagnosis?: No Physical Exam Vital Signs: Vital Signs: Last Vital Signs Temp 97.4 F 03/15/23 11:58 Pulse 72 03/15/23 11:58 Resp 20 03/15/23 11:58 BP 119/56 L 03/15/23 11:58 Pulse Ox 93 03/15/23 11:58 O2 Del Method Room Air 03/15/23 11:58 BMI result Body Mass Index 42.6 Const: General: cooperative, comfortable, alert and awake Nutritional Appearance: obese Orientation/consciousness: patient oriented x3 Resp: Effort & Inspection: normal respiratory effort, able to speak in complete sentences, no respiratory distress and no use of accessory muscles Cardio: Rate: regular rate GI: Inspection: No distended Palpation (GI): Soft to palpation Neuro: General: patient oriented x3, moves all extremities and CN's II-XI intact bilaterally DS: Data Data Completed and Pending Pending studies at discharge: Pending at discharge 03/14/23 19:33 Cytology [PTH] Routine Labs on day of discharge: Laboratory Results - last 24 hr 03/14/23 03/14/23 03/15/23 14:34 20:19 07:01 WBC 7.2 RBC 5.31 Hgb 12.5 Hct 41.6 MCV 78.3 L MCH 23.5 L MCHC 30.0 L RDW 15.0 Plt Count 380 MPV 9.7 Immature Gran % (Auto) 0.3 Neut % (Auto) 68.1 Lymph % (Auto) 22.6 [place] % (Auto) 7.5 Eos % (Auto) 1.1 Baso % (Auto) 0.4 Lymph # (Auto) 1.6 [place] # (Auto) 0.5 Eos # (Auto) 0.1 Baso # (Auto) 0.0 Abs Immat Gran (auto) 0.02 Absolute Neuts (auto) 4.9 Absolute Nucleated RBC 0.000 Nucleated RBC % (auto) 0.0 PT 11.3 INR 0.9 APTT 31.3 Sodium 143 Potassium 3.5 Chloride 104 Carbon Dioxide 30 H Anion Gap 13 BUN 28 H Creatinine 0.78 Estim Creat Clear Calc 81.3 Estimated GFR > 60 Random Glucose 109 Calcium 9.2 Total Bilirubin 1.3 H Direct Bilirubin 0.4 AST 18 ALT 14 Alkaline Phosphatase 93 Total Protein 6.6 Albumin 3.8 Urine Color Dark Yellow Urine Appearance Cloudy Urine pH 6.0 Ur Specific [place] >= 1.030 H Urine Protein Trace Urine Glucose (UA) Negative Urine Ketones Trace Urine Blood Negative Urine Nitrite Negative Ur Leukocyte Esterase Moderate (2+) H Urine RBC 3-5 H Urine WBC 11-20 H Ur Squamous Epith Cells 11-20 Urine Bacteria 1+ Hyaline Casts 6-10 Peritoneal pH Peritoneal WBC Peritoneal RBC Periton Neutrophils Periton Lymphocytes Peritoneal Monocytes Peritoneal Other Cells Peritoneal Tot Protein Peritoneal Albumin Peritoneal LDH Peritoneal Glucose 03/15/23 10:00 WBC RBC Hgb Hct MCV MCH MCHC RDW Plt Count MPV Immature Gran % (Auto) Neut % (Auto) Lymph % (Auto) [place] % (Auto) Eos % (Auto) Baso % (Auto) Lymph # (Auto) [place] # (Auto) Eos # (Auto) Baso # (Auto) Abs Immat Gran (auto) Absolute Neuts (auto) Absolute Nucleated RBC Nucleated RBC % (auto) PT INR APTT Sodium Potassium Chloride Carbon Dioxide Anion Gap BUN Creatinine Estim Creat Clear Calc Estimated GFR Random Glucose Calcium Total Bilirubin Direct Bilirubin AST ALT Alkaline Phosphatase Total Protein Albumin Urine Color Urine Appearance Urine pH Ur Specific [place] Urine Protein Urine Glucose (UA) Urine Ketones Urine Blood Urine Nitrite Ur Leukocyte Esterase Urine RBC Urine WBC Ur Squamous Epith Cells Urine Bacteria Hyaline Casts Peritoneal pH 7.51 Peritoneal WBC 1.033 Peritoneal RBC 0.002 Periton Neutrophils 1 Periton Lymphocytes 21 Peritoneal Monocytes 1 Peritoneal Other Cells 77 Peritoneal Tot Protein 5.3 Peritoneal Albumin 3.7 Peritoneal LDH 198 Peritoneal Glucose 101 Discharge Plan Discharge Patient Disposition: Home, Self-Care Discharge Diagnosis: new ascites carcinomatosis Referrals: Stephanie Castle MD [Primary Care Provider] - 1 Week Sadia Perez MD [Physician] - 1 Week Discharge Medications: Continued albuterol sulfate [ProAir HFA] 90 mcg/actuation HFA aerosol inhaler 2 puff inhalation Q4-6H PRN (Reason: shortness of breath or wheezing) Qty: 1 11RF hydrochlorothiazide 25 mg tablet 25 mg PO DAILY 90 Days Qty: 90 3RF atenolol 25 mg tablet 25 mg PO DAILY 90 Days Qty: 90 1RF ezetimibe 10 mg tablet 10 mg PO DAILY Qty: 90 1RF Gamunex-C 10 gram/100 mL (10 %) solution See Rx Instructions .ROUTE .COMPLEX Rx Instructions: unknown acetaminophen 500 mg Tablet 1,000 mg PO DAILY acetaminophen [Tylenol Extra Strength] 500 mg Tablet 1,000 mg PO BEDTIME PRN (Reason: Pain) docusate sodium [Colace] 100 mg Capsule 100 mg PO DAILY cholecalciferol (vitamin D3) 25 mcg (1,000 unit) Tablet 25 mcg PO DAILY coenzyme Q10 [Co Q-10] 400 mg Capsule 400 mg PO DAILY celecoxib 200 mg capsule 200 mg PO DAILY Adult 50 Plus Probiotic 4 billion cell capsule 4,000 mmu cells PO DAILY Rx Instructions: administer with a meal Discharge Orders: Discharge Order (Routine); Ordered 03/15/23 Ordered By: Erika Rodríguez Activity on Discharge: As tolerated Stand Alone Forms: Patient Portal Discharge page Care Plan Goals: see below Health Concerns: new ascites carcinomatosis Plan of Treatment: call to schedule follow up appointment with oncology cytology from ascites fluid is pending CA 125 pending Assessment: see discharge summary
[2023-03-15 15:26] VITALS: BP 124/51; PULSE 73; RESP 18; TEMP 36.3; O2SAT 97
[2023-03-15 15:31] VITALS: BP 140/60; PULSE 95; RESP 20; TEMP 36.3; O2SAT 92
[2023-03-16 09:01] LABS: Amylase Peritoneal Fluid 52
[2023-03-19 12:03] LABS: CA-125 3740 U/mL (<35)
== END 2023-03-15 17:27 | disposition home or self-care (01) ==
LOC: HO.ED 19:21 → HO.EDOVER 19:50 → HO.IMC 23:06
PROVIDERS: Physician Assistant Medical; Physician Assistant Surgical; Admitting Provider Student in an Organized Health Care Education/Training Program; Emergency Provider Emergency Medicine; PCP Internal Medicine; Visit Provider Physician Assistant Medical
DX: C78.6 Secondary malignant neoplasm of retroperitoneum and peritoneum (principal); R18.8 Other ascites; K59.00 Constipation, unspecified; R19.09 Other intra-abdominal and pelvic swelling, mass and lump; R10.10 Upper abdominal pain, unspecified; R32 Unspecified urinary incontinence; J44.9 Chronic obstructive pulmonary disease, unspecified; I10 Essential (primary) hypertension; E78.5 Hyperlipidemia, unspecified; D80.1 Nonfamilial hypogammaglobulinemia; E78.2 Mixed hyperlipidemia; G47.33 Obstructive sleep apnea (adult) (pediatric); Z79.899 Other long term (current) drug therapy
CPT/HCPCS: 36415; 49083; 74018; 74177; 76830; 76856; 80048; 80076; 81001; 82042; 82150; 82945; 83615; 83690; 83986; 84157; 85025; 85610; 85730; 86304; 87070; 87073; 87086; 87205; 88112; 88305; 88341; 88342; 89051; 96361; 96374; 99222; 99285; J2405; Q9967

== ENCOUNTER 2023-03-14 19:33 | Outpatient (BNV) | payer MEDICARE, SELFPAY | END 2023-03-15 09:30 | PROVIDERS: Admitting Provider Student in an Organized Health Care Education/Training Program; Emergency Provider Emergency Medicine; PCP Internal Medicine; Visit Provider Radiology Diagnostic Radiology | DX: R18.8 Other ascites (principal) | CPT/HCPCS: 49083 ==

== ENCOUNTER → 2023-03-14 19:33 | Outpatient (BNV) | payer MEDICARE, SELFPAY | PROVIDERS: Admitting Provider Student in an Organized Health Care Education/Training Program; Emergency Provider Emergency Medicine; PCP Internal Medicine; Visit Provider Student in an Organized Health Care Education/Training Program | DX: C78.6 Secondary malignant neoplasm of retroperitoneum and peritoneum (principal) | CPT/HCPCS: 99222; 99239 ==

== ENCOUNTER → 2023-03-14 19:33 | Outpatient (BNV) | payer MEDICARE, SELFPAY | PROVIDERS: Admitting Provider Student in an Organized Health Care Education/Training Program; Emergency Provider Emergency Medicine; PCP Internal Medicine; Visit Provider Internal Medicine Medical Oncology | DX: R18.8 Other ascites (principal) | CPT/HCPCS: 99222 ==

== ENCOUNTER 2023-03-20 10:01 | Outpatient (AMB) | payer MEDICARE, SELFPAY ==
--- NOTE | 2023-03-20 10:13 | A.OFFVIS_ITS ---
Intake Vital Signs 03/20/23 10:16 Height 5 ft 4 in Weight 239 lb BMI 41.0 BP 110/64 Blood Pressure Location Lt brachial Position Sitting Pulse 78 Pulse Source Pulse Oximeter Pulse Oximetry (%) 94 Oxygen Delivery Method Room Air Intake Visit Reasons: SWV G0439 Allergies cephalexin [Keflex] Allergy (Unknown, Verified 03/26/23 03:09) anaphylaxis glycine [From GAMMAGARD S/D] Adverse Reaction (Unknown, Verified 03/26/23 03:09) WEAKNESS IgA less than or equal to 50 mcg/mL [From GAMMAGARD S/D] Adverse Reaction (Unknown, Verified 03/26/23 03:09) WEAKNESS immune globulin,gamma (IgG) human [From GAMMAGARD S/D] Adverse Reaction (Unknown, Verified 03/26/23 03:09) WEAKNESS Penicillins [PENICILLINS] Adverse Reaction (Unknown, Verified 03/26/23 03:09) DIARRHEA atorvastatin Adverse Reaction (Verified 03/26/23 03:09) muscle ache pravastatin Adverse Reaction (Verified 03/26/23 03:09) Muscle pain Medication List - Last Reconciled 03/26/23 by Stephanie Castle MD acetaminophen (Tylenol Extra Strength) 1,000 mg PO DAILY PRN albuterol sulfate 90 mcg/actuation (ProAir HFA) 2 puffs inhalation Q4-6H PRN atenolol 25 mg PO DAILY 90 days celecoxib 200 mg PO DAILY cholecalciferol (vitamin D3) 25 mcg PO DAILY coenzyme Q10 (Co Q-10) 400 mg PO DAILY docusate sodium (Colace) 100 mg PO NEEDED PRN ezetimibe 10 mg PO DAILY hydrochlorothiazide 25 mg PO DAILY 90 days immune globul G-gly-IgA avg 46 10 gram/100 mL (10 %) (Gamunex-C) every 3 weeks lactobacillus combination no.9 (Adult 50 Plus Probiotic) 4,000 mmu cells PO DAILY HPI SWV G0439 HPI Details SWV ? 72-year-old lady with chronic low back pain due to lumbar disc herniation with radiculopathy, moderate persistent asthma, osteoarthritis, obstr uctive sleep apnea, impaired fasting glucose, mixed dyslipidemia and gastroesophageal reflux disease, presents today for her subsequent wellness visit.? She is up-to-date with her lipid and diabetes mellitus screening done 12/04/2022 which showed elevation in triglycerides and LDL cholesterol and fasting blood sugar in the prediabetic range. Up-to-date with her screening mammogram done October 2022 with benign findings, last colonoscopy was done 08/11/2019, to be repeated again in 2024. Last bone density scan done showed normal findings last 08/17/2020 She is up-to-date with her flu vaccine and COVID , and pneumococcal vaccination. ? Medical / Social History Reviewed? Past Medical History ?Yes . ? [place] of Care / Care Team list updated ?Yes . ? Surgical/Hospitalization History ?Yes . ? Current Medications (including OTC and supplements) ?Yes . ? Family History ?Yes . ? Tobacco Control form ?Yes . ? AUDIT-C (Alcohol use) form ?Yes . ? Illicit drug use in Social History ?Yes . ? Current diagnosis of depression? ?No ? Appropriate PHQ2/PHQ9 completed ?Yes . ? Data entered by ?[employer] and reviewed by provider ? Fall Risk ? Fall History? Have you had any falls with injury in the past year? ?No . ? Have you had two or more falls in the past year? ?No . ? Fall Risk Assessment: ?No falls in the past year . ? HRA filled out by the patient, reviewed by Provider and scanned. ?SWV ? Balance? Romberg ?Yes . ? Tandem walk ?Yes . ? Walk and Turn ?Yes . ? Rise from sit to stand ?Yes . ?Vision? Corrective lens yes ? Vision screen ? Up-to-date, has an appointment Dr. Love 09/14/2020 for her vision screening and glaucoma screening ?Hearing? Whisper test ?pass . ?Written Plan?Completed. See Patient Documents.? HPI Comments History of Present Illness Details 72-year-old female with pertinent histor y of essential hypertension, chronic back pain, non familial hypogammaglobulinemia, mixed hyperlipidemia here today for follow-up after recent admission at [facility] for evaluation of abdominal swelling, which has been present now for the last 4-6 weeks and has been progressively getting worse Patient states she has had abdominal discomfort due to the swelling and intermittent constipation. in the ER, imaging concerning for large amount of ascites and possible peritoneal carcinomatosis . CT of abdomen showed large amount of ascites, peritoneal thickening, Concerning for possible peritoneal carcinomatosis, and concern for possible left adnexal mass. She underwent paracenteisis with 5L of yellow ascitic fluid was removed. Fluid studies show no evidence of SBP. SAAG done, not indicative of portal hypertension as cause of ascites. Gram stain with no organisms seen. CA 125 obtained , came back markedly elevated.. She has an appointment to see Dr. Perez after the day of , but patient would like to see if she can get in to be seen soonerLaboratory Tests 05/15/22 03/14/23 03/14/23 10:45 13:00 20:19 WBC 9.5 Hgb 14.6 Hct 47.6 H MCV 78.7 L MCH 24.1 L RDW 15.4 Plt Count 455 H D Estimat Average Gl ucose 123 Hemoglobin A1c % 5.9 CA 125 Antigen 3740 H . [facility] Medical History 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 pain with right-sided sciatica Post-menopause Vitamin D deficiency Myalgia due to statin Moderate persistent asthma in adult without complication Tubular adenoma of colon Nonfamilial hypogammaglobulinemia Trigger finger De Quervain's disease (radial styloid tenosynovitis) Osteoarthritis of knee ERNIE (obstructive sleep apnea) Hiatal hernia Impaired fasting glucose Mixed dyslipidemia Hypertension COPD (chronic obstructive pulmonary disease) Surgical History History of colonoscopy with polypectomy History of bilateral knee replacement Hx of tonsillectomy Hx of cholecystectomy History of bowel resection Hx of appendectomy Family History Mother HTN (hypertension) Uterine cancer Father Colon cancer Sister CVA (cerebral vascular accident) Breast cancer, Onset Age: 50 Social History Household Members: Spouse Household Members Other:: and son Housing: House Do you presently have visiting nurse or other home services: No Alcohol intake: never Patient Tobacco Use Status: Former Tobacco user Tobacco use type: Cigarette Years Smoked: 15 Years e-Cigarette/Vaping Use: Never Used Second Hand Smoke Exposure: No Patient : No service: No Current occupational status: retired Cognitive needs: No Hearing needs: No Vision needs: Yes Female Reproductive History Menstrual Age of Menarche: 14 Questionnaire Medicare Wellness Checkup [age] What gender do you identify with?: female During the past 4 weeks, how much have you been bothered by emotional problems such as feeling anxious, depressed, irritable, sad or downhearted, and blue?: not at all During the past 4 weeks, has your physical & emotional health limited your social activities with family, friends, neighbors, or groups?: slightly During the past 4 weeks, how much bodily pain have you generally had?: moderate pain During the past 4 weeks, was someone available to help you if you needed & wanted help?: yes, as much as I wanted During the past 4 weeks, what was the hardest physical activity you could do for at least 2 minutes?: light Can you get to places out of walking distance without help? (For eg., can you travel alone on buses, taxis or drive your car?): Yes Can you go shopping for groceries or clothes without someone's help?: Yes Can you prepare your own meals?: Yes Can you do your housework without help?: Yes Because of any health problems, do you need the help of another person with your personal care needs such as eating, bathing, dressing or getting around the house?: No Can you handle your own money without help?: Yes During the past 4 weeks, how would you rate your health in general?: poor During the past 4 weeks how have things been going for you?: good & bad parts about equal Are you having difficulties driving your car?: no Do you always fasten your seat belt when you are in a car?: yes, usually During past 4 weeks, have you been bothered by the following: never: Falling or dizzy when standing up, Sexual problems?, Trouble eating well?, Teeth or denture problems? and Problems using the telephone? and sometimes: Tiredness or fatigue? Have you fallen 2 or more times in the past year?: No Are you afraid of falling?: No Are you a smoker?: no During the past 4 weeks, how many drinks of wine, beer, or other alcoholic beverages did you have?: no alcohol at all Do you exercise for about 20 minutes 3 or more times a week?: no, I usually do not exercise this much Have you been given information to help with the following?: no: Hazards in your house that might hurt you? and no: Keeping track of your medications? How often do you have trouble taking medicines the way you have been told to take them?: I always take medicine as prescribed How confident are you that you can control & manage most of your health problems?: very confident What is your race?: White Mini Mental State Exam (MMSE) Orientation What is the (year) (season) (date) (day) (month)?: year (2022), season (Fall), date (03/20/2023), day (Sunday) and month (March) Where are we (state) (county) (town or city) (hospital) (floor)?: state ([place]), county ([place]), town or city ([place]) and hospital/clinic ([facility]) Score Score: 9 Activity of Daily Living Bathing - sponge bath, tub bath or shower: receives no assistance (gets in/out by self, if usual bathing means Dressing - getting clothes from closets & drawers, including inner/outer garments & fasteners.: gets clothes & gets completely dressed without help Toileting - going to the 'toilet room' for urine/bowel elimination & cleaning self/arranging clothes: goes to toilet room, cleans self, arranges clothes without help Transfer: moves in & out of bed and chair without help (may use support object) Continence: has occasional 'accidents' Feeding: feeds self without help Total Score: 0 Information obtained from: patient Using telephone: independent Traveling: independent Shopping: independent Preparing meals: independent Housework: independent Taking medicine: independent Managing money: independent PHQ-9 Over the last 2 weeks, how often have you been bothered by any of the following problems? 1. Little interest or pleasure in doing things: not at all 2. Feeling down, depressed, or hopeless: not at all 3. Trouble falling or staying asleep, or sleeping too much: not at all 4. Feeling tired or having little energy: several days 5. Poor appetite or overeating: not at all 6. Feeling bad about yourself - or that you are a failure or have let yourself o r your family down: not at all 7. Trouble concentrating on things, such as reading the newspaper or watching television: not at all 8. Moving or speaking so slowly that other people could have noticed. Or the opposite - being so fidgety or restless that you have been moving around a lot more than usual: not at all 9. Thoughts that you would be better off or of hurting yourself in some way: not at all Total score: 1 Depression Screening Interpretation: Negative Depression Screening Done: Yes 80558 - PHQ-9 Billing: Yes Source: Developed by Drs. Bj L. Lela Price Kurt Kroenke a nd colleagues, with an educational itzel from [employer]. Review of Systems Const Denies body aches, Denies fever(s), Denies malaise and Denies poor appetite Eyes Reports no additional complaints ENT Reports no additional complaints Card Reports no additional complaints Resp Reports no additional complaints GI Details: Patient states that her abdomen is starting to get full again, denies any abdominal pain Reports no additional complaints Neuro Reports no additional complaints Endo Reports no additional complaints Wayne/Lymph Reports no additional complaints Physical Exam Vital Signs: Last Vital Signs Pulse 78 03/20/23 10:16 BP 110/64 03/20/23 10:16 Pulse Ox 94 03/20/23 10:16 Oxygen Delivery Method Room Air 03/20/23 10:16 BMI result Body Mass Index 41.0 Last Vital Signs Temp 97.4 F 03/15/23 11:58 Pulse 72 03/15/23 11:58 Resp 20 03/15/23 11:58 BP 119/56 L 03/15/23 11:58 Pulse Ox 93 03/15/23 11:58 O2 Del Method Room Air 03/15/23 11:58 BMI result Body Mass Index 42.6 Const General: cooperative, comfortable, alert and awake Nutritional Appearance: obese Orientation/consciousness: patient oriented x3 Resp Effort & Inspection: normal respiratory effort, able to speak in complete sentences and no respiratory distress Cardio Rate: regular rate GI Inspection: Yes Abdominal wall edema and Yes obesity Palpation (GI): Soft to palpation, nontender, no guarding, no masses and Ascites present Percussion: Yes dullness to percussion Auscultation: Hyperactive bowel sounds present Skin General skin exam: no rashes or lesions noted Neuro General: patient oriented x3, gait normal, moves all extremities, no focal motor deficits and CN's II-XI intact bilaterally Extrem General: Yes full ROM, Yes no joint enlargement, Yes no clubbing, cyanosis or edema and Yes no calf tenderness Assessment & Plan Assessment & Plan (1) Encounter for subsequent annual wellness visit (AWV) in Medicare patient: Code(s): Z00.00 - Encounter for general adult medical examination without abnormal findings Plan: Medicare wellness visit reviewed, discussed with patient and updated. Copy given. Patient already completed a healthcare proxy. Will provide us with the completed MOLST form as soon as discussed with family members (2) Peritoneal carcinomatosis: Code(s): C78.6 - Secondary malignant neoplasm of retroperitoneum and peritoneum Plan: Referral ordered to see Dr. Chris SORTOP, patient to be seen today at her office (3) Mass of left ovary: Code(s): N83.8 - Other noninflammatory disorders of ovary, fallopian tube and broad ligament Plan: Referred to Dr. Perez, patient will be seen later this afternoon for follow-up (4) Lumbar disc herniation with radiculopathy: Code(s): M51.16 - Intervertebral disc disorders with radiculopathy, lumbar region Plan: Continue celecoxib (5) Moderate persistent asthma in adult without complication: Code(s): J45.40 - Moderate persistent asthma, uncomplicated Plan: Continue albuterol inhaler as needed, (6) Nonfamilial hypogammaglobulinemia: Code(s): D80.1 - Nonfamilial hypogammaglobulinemia Plan: Currently on Gamunex C (7) Osteoarthritis of knee: Code(s): M17.10 - Unilateral primary osteoarthritis, unspecified knee Plan: Takes celecoxib as needed and extra-strength Tylenol as needed (8) Mixed dyslipidemia: Code(s): E78.2 - Mixed hyperlipidemia Plan: Currently on ezetimibe 10 mg daily (9) Hypertension: Code(s): I10 - Essential (primary) hypertension Qualifiers: Hypertension type: primary hypertension Qualified Code(s): I10 - Essential (primary) hypertension Plan: Blood pressure mildly elevated today, which patient attributes to being under lot of stress with current health issue. Continue on atenolol 25 mg daily and hydrochlorothiazide 25 mg daily in am (10) Impaired fasting glucose: Code(s): R73.01 - Impaired fasting glucose Plan: Your fasting blood sugars elevated above 100 mg/dL. Impaired glucose metabolism O2 at risk for developing diabetes mellitus type 2, as well as heart attack and stroke later on. Lifestyle changes at just weight loss, healthy eating habits, and regular exercise are important, and can prevent the progression to diabetes (11) ERNIE (obstructive sleep apnea): Comment: Intolerant of CPAP Code(s): G47.33 - Obstructive sleep apnea (adult) (pediatric) Plan: Unable To tolerate CPAP (12) Tubular adenoma of colon: Code(s): D12.6 - Benign neoplasm of colon, unspecified Plan: Repeat colonoscopy due again in 2025 Quality Reporting (2019) Depression/Bipolar (159/160/161/177) PHQ-9: Total score: 1 Coding Level of Care Code Medicare Subsequent (G0439) Est Pt Level 3 (18782) Diagnoses Encounter for subsequent annual wellness visit (AWV) in Medicare patient Z00.00 Peritoneal carcinomatosis C78.6 Mass of left ovary N83.8 Lumbar disc herniation with radiculopathy M51.16 Moderate persistent asthma in adult without complication J45.40 Nonfamilial hypogammaglobulinemia D80.1 Osteoarthritis of knee M17.10 Mixed dyslipidemia E78.2 Primary hypertension I10 Hypertension type: primary hypertension Impaired fasting glucose R73.01 ERNIE (obstructive sleep apnea) G47.33 Tubular adenoma of colon D12.6 CPT Codes Advance Care Planning - Time spent: 16-45 minutes ([id number]) Advance Care Planning Advance Care Planning discussion: Completed/Scanned Date of discussion: 03/26/23 Who was present: Patient and Forms completed: Health Care Proxy Time spent: 16-45 minutes Actual minutes spent: 16
[2023-03-20 10:16] VITALS: BP 110/64; PULSE 78; O2SAT 94; BMI 41.0
== END 2023-03-20 12:21 | disposition home or self-care (01) ==
PROVIDERS: PCP Internal Medicine; Visit Provider Internal Medicine
DX: Z00.00 Encounter for general adult medical examination without abnormal findings (principal); C78.6 Secondary malignant neoplasm of retroperitoneum and peritoneum; D80.1 Nonfamilial hypogammaglobulinemia; N83.8 Other noninflammatory disorders of ovary, fallopian tube and broad ligament; M51.16 Intervertebral disc disorders with radiculopathy, lumbar region; J45.40 Moderate persistent asthma, uncomplicated; M17.10 Unilateral primary osteoarthritis, unspecified knee; E78.2 Mixed hyperlipidemia; I10 Essential (primary) hypertension; R73.01 Impaired fasting glucose; G47.33 Obstructive sleep apnea (adult) (pediatric); D12.6 Benign neoplasm of colon, unspecified
CPT/HCPCS: 99213; 99497; G0439

== ENCOUNTER → 2023-03-20 14:53 | Outpatient (BNV) | payer MEDICARE, SELFPAY | PROVIDERS: PCP Internal Medicine; Visit Provider Internal Medicine Medical Oncology | DX: C56.9 Malignant neoplasm of unspecified ovary (principal) | CPT/HCPCS: 99214 ==

== ENCOUNTER 2023-03-27 10:00 | Outpatient (REF) | payer MEDICARE, SELFPAY | END 2023-03-27 10:01 | disposition home or self-care (01) | LOC: HO.MDS 10:00 | PROVIDERS: Visit Provider Hospitalist | DX: D80.1 Nonfamilial hypogammaglobulinemia (principal) | CPT/HCPCS: 96365; 96366; J1561 ==

== ENCOUNTER 2023-04-16 12:30 | Outpatient (REF) | payer MEDICARE, SELFPAY | END 2023-04-16 12:31 | disposition home or self-care (01) | LOC: HO.MDS 12:30 | PROVIDERS: Visit Provider Hospitalist | DX: D80.1 Nonfamilial hypogammaglobulinemia (principal) | CPT/HCPCS: 96365; 96366; J1561 ==

== ENCOUNTER 2023-07-02 11:34 | Outpatient (REF) | payer MEDICARE, SELFPAY | END 2023-07-02 11:35 | disposition home or self-care (01) | LOC: HO.LNP 11:34 | PROVIDERS: Visit Provider Pathology Anatomic Pathology & Clinical Pathology | DX: C80.1 Malignant (primary) neoplasm, unspecified (principal); R18.0 Malignant ascites | CPT/HCPCS: 88360; 88374; 88377 ==

== ENCOUNTER 2023-08-03 08:04 | Outpatient (AMB) | payer MEDICARE, SELFPAY ==
[2023-08-03 08:09] VITALS: BP 138/62; PULSE 110; TEMP 36.6; O2SAT 95; BMI 42.6
--- NOTE | 2023-08-03 08:09 | MHC.OFFWIV ---
Intake Vital Signs 08/03/23 08:09 Height 5 ft 4 in Weight 248 lb 2 oz BMI 42.6 BP 138/62 Blood Pressure Location Rt brachial Position Sitting Pulse 110 H Pulse Source Pulse Oximeter Temp 97.9 F Temp Source Oral Pulse Oximetry (%) 95 Oxygen Delivery Method Room Air Intake Visit Reasons: EP Abscess gum Intake Note: Pt is here today for abscess on gum pt states noticed last night Patient Tobacco Use Status: Former Tobacco user Allergies cephalexin [Keflex] Allergy (Unknown, Verified 08/03/23 08:11) anaphylaxis glycine [From GAMMAGARD S/D] Adverse Reaction (Unknown, Verified 08/03/23 08:11) WEAKNESS IgA less than or equal to 50 mcg/mL [From GAMMAGARD S/D] Adverse Reaction (Unknown, Verified 08/03/23 08:11) WEAKNESS immune globulin,gamma (IgG) human [From GAMMAGARD S/D] Adverse Reaction (Unknown, Verified 08/03/23 08:11) WEAKNESS Penicillins [PENICILLINS] Adverse Reaction (Unknown, Verified 08/03/23 08:11) DIARRHEA atorvastatin Adverse Reaction (Verified 08/03/23 08:11) muscle ache pravastatin Adverse Reaction (Verified 08/03/23 08:11) Muscle pain Do you need a note to return to daycare/school/sports/work: No HPI HPI Comments History of Present Illness Details This is a 73-year-old female with a past medical history of asthma, hypertension and a gynecological malignancy yet of unknown origin presenting for evaluation of dental pain. Patient states that her [id number] accidentally hit her in the face with her head approximately 1 week ago and last night she noted pain in her gums above her right top middle tooth and right lateral incisor. Patient denies having any overt dental pain or loose teeth, however states that she primarily has caps in her front upper dentition. Patient denies having any fevers or chills and has not taken any medication for treatment of her discomfort. Additionally, patient has not yet followed up with her dentist. [facility] Medical History 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 pain with right-sided sciatica Post-menopause Vitamin D deficiency Myalgia due to statin Moderate persistent asthma in adult without complication Tubular adenoma of colon Nonfamilial hypogammaglobulinemia Trigger finger De Quervain's disease (radial styloid tenosynovitis) Osteoarthritis of knee ERNIE (obstructive sleep apnea) Hiatal hernia Impaired fasting glucose Mixed dyslipidemia Hypertension COPD (chronic obstructive pulmonary disease) Surgical History History of colonoscopy with polypectomy History of bilateral knee replacement Hx of tonsillectomy Hx of cholecystectomy History of bowel resection Hx of appendectomy Family History Mother HTN (hypertension) Uterine cancer Father Colon cancer Sister CVA (cerebral vascular accident) Breast cancer, Onset Age: 50 Social History Household Members: Spouse Household Members Other:: and son Housing: House Do you presently have visiting nurse or other home services: No Alcohol intake: never Comment: no used for pain Patient Tobacco Use Status: Former Tobacco user Tobacco use type: Cigarette Years Smoked: 15 Years e-Cigarette/Vaping Use: Never Used Second Hand Smoke Exposure: No service: No Current occupational status: retired Cognitive needs: No Hearing needs: No Vision needs: Yes Female Reproductive History Menstrual Age of Menarche: 14 Review of Systems Const Denies chills, Denies fatigue and Denies fever(s) Eyes Reports no additional complaints ENT Denies dental pain, Reports mouth lesions and Reports mouth pain Skin/Breast Reports system reviewed and no additional complaints, except as documented Endo Denies fatigue Physical Exam Vital Signs: Last Vital Signs Pulse 110 H 08/03/23 08:09 Pulse Ox 95 08/03/23 08:09 Oxygen Delivery Method Room Air 08/03/23 08:09 HR 86 bpm upon examination Const General: cooperative, healthy appearing, no acute distress and well developed Nutritional Appearance: well nourished Orientation/consciousness: patient oriented x3 Limitations: no limitations HEENT Head: Yes normal to inspection and Yes normocephalic Ears: hearing grossly normal bilaterally, external ears normal, TM's normal bilaterally and EAC's normal General nose exam: Normal external nose present Face and sinus: Yes normal facial exam and Yes sinuses nontender Mouth: abnormal oral mucosae, lip normal, tongue normal, oropharynx normal, moist mucous membranes and Abnormal oral and palatal mucosa present (there is erythema and edema of the gingivae adjacent to tooth 7 and 8) erythematous and edematous; no ulcerations and no vesicles Teeth and gingiva: dentition normal and abnormal gingiva Throat: Yes posterior oropharynx normal Eyes Eyelids: Yes eyelids normal Conjunctivae: conjunctivae normal Sclerae: sclerae normal Corneas: corneas normal EOM: EOMs intact bilaterally Neuro General: patient oriented x3 Psych Appearance: grossly normal Mental Status: mental status grossly normal Insight: Good insight present (Psych) Judgement: Good judgement present (Psych) Assessment & Plan Assessment & Plan (1) Dental abscess: Comment: Patient will call her dentist today to schedule follow-up and further evaluation/treatment. Code(s): K04.7 - Periapical abscess without sinus Plan: Clindamycin q.6 hours x7 days; Tylenol as needed for discomfort. Medications: New clindamycin HCl 300 mg PO Q6H 28 caps 0RF Coding Level of Care Code Est Pt Level 3 (02526) Diagnoses Dental abscess K04.7 Time Spent (min) 20
== END 2023-08-03 08:46 | disposition home or self-care (01) ==
PROVIDERS: PCP Internal Medicine; Visit Provider Physician Assistant
DX: K04.7 Periapical abscess without sinus (principal)
CPT/HCPCS: 99213

== ENCOUNTER 2023-11-26 10:03 | Outpatient (AMB) | payer MEDICARE, SELFPAY ==
--- NOTE | 2023-11-26 10:16 | A.OFFVIS_ITS ---
Vital Signs 11/26/23 10:17 Height 5 ft 4 in Weight 242 lb BMI 41.5 Pulse 79 Pulse Source Pulse Oximeter Pulse Oximetry (%) 95 Oxygen Delivery Method Room Air Intake Visit Reasons: asthma Electronic Communications Technician Required: No Allergies cephalexin [Keflex] Allergy (Unknown, Verified 11/26/23 10:18) anaphylaxis glycine [From GAMMAGARD S/D] Adverse Reaction (Unknown, Verified 11/26/23 10:18) WEAKNESS IgA less than or equal to 50 mcg/mL [From GAMMAGARD S/D] Adverse Reaction (Unknown, Verified 11/26/23 10:18) WEAKNESS immune globulin,gamma (IgG) human [From GAMMAGARD S/D] Adverse Reaction (Unknown, Verified 11/26/23 10:18) WEAKNESS Penicillins [PENICILLINS] Adverse Reaction (Unknown, Verified 11/26/23 10:18) DIARRHEA atorvastatin Adverse Reaction (Verified 11/26/23 10:18) muscle ache pravastatin Adverse Reaction (Verified 11/26/23 10:18) Muscle pain HPI Comments Details: The patient is a 73-year-old woman known asthma in addition to obstructive sleep apnea and hypogammaglobulinemia. She responded very well to the IgG infusions. Initially started with Gamunex C and was able to taper dose to 20 mg every 3 weeks. At some point due to a shortness of the medications she was placed on Gammagard and had series adverse reactions. She was subsequently taken off again regarding back to the gamma next see which is tolerating very well. In the meantime the patient has been having issues tolerate her CPAP. The CPAP therapy sometimes difficult because she feels significant nasal congestion and nasal obstruction. She is trying to lose weight. When she is able to lose about 40-50 lb or so we can consider repeating the sleep study to see if she has not requiring CPAP any longer. Her asthma appears to be stable at this time. 07/06/2020 the patient is here for pulmonary follow-up visit. Since we last spoke back in April she was diagnosed with COVID-19. She did require a brief ICU hospitalization. Subsequently discharged before. She actually did very well. He is actually doing very well. She recently did get vaccinated. She continues to get her fusions. Sometimes he has a hard time with her IV access. However she has not missed a dose because of the IV access. She continues to lose weight. She has been motivated to continue to do so. She is trying to exercise more. She has not had to use her rescue inhaler. Her actually . She will call the office if she needs 1. In the meantime the patient had is sleeping well. Denies any significant daytime drowsiness. I did offer her at some point to give her sleep study to make sure that he does not have any untreated sleep apnea that which should be worried about. 01/03/2022 the patient is here for a pulmonary follow-up visit. Overall the patient has been doing well from a respiratory status. Denies any recent illness. She is going on a cruise soon she will do her best to try to keep from getting sick. She continues to receive the augmentation therapy with the IVIG. Currently she is on therapy every 3 weeks because is hard for her to tolerate a higher dose. Will go ahead and check her IgG trough with the hope that her levels are well then we can extend the therapy a little longer. Will decide depending on her levels. The patient has not required her short-acting beta agonist recently. She did require couple weeks ago but otherwise she is doing well. No additional therapies warranted. 11/26/2023 the patient is here for pulmonary follow-up visit. The patient is frustrated with IgG levels. Apparently the patient was started on chemotherapy back in April. At that point in view of her significant aggressive chemotherapy regimen the plan was just to follow her IgG levels while she was getting chemotherapy. At the point that her levels drop below normal at that point will then encourage her to restart her IVIG therapy. Unfortunately, 1 getting a blood work from [facility] and the levels it throughout below 600. She also developed COVID. Now she has recovered from that. We did talk to the infusion center. We are able to get her in to start the IVIG today. She will continue it every 3 weeks. She continue also getting blood work every 3 weeks. Once levels normalize she can consider stopping but at this point which is continue to make simple. Unfortunately she did not respond to the 1st came or 2nd chemo course. She is on her 3rd 1 which I believe is a trial. She unfortunately also had worsening shortness of breath. She had significant amount of ascites. She had a significant amount of fluid removed. Ultimately she also required a thoracentesis at [facility] for likely extravasation through her diaphragm. She does have still some shortness of breath and will have her get an x-ray today as well to see if any pleural effusion is rebuilding. [facility] [place] Medical History (Updated 11/26/23 @ 21:28 by Artur Pierre MD) Pleural effusion 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 pain with right-sided sciatica Post-menopause Vitamin D deficiency Myalgia due to statin Moderate persistent asthma in adult without complication Tubular adenoma of colon Nonfamilial hypogammaglobulinemia Trigger finger De Quervain's disease (radial styloid tenosynovitis) Osteoarthritis of knee ERNIE (obstructive sleep apnea) Hiatal hernia Impaired fasting glucose Mixed dyslipidemia Hypertension COPD (chronic obstructive pulmonary disease) Surgical History History of colonoscopy with polypectomy History of bilateral knee replacement Hx of tonsillectomy Hx of cholecystectomy History of bowel resection Hx of appendectomy Family History Mother HTN (hypertension) Uterine cancer Father Colon cancer Sister CVA (cerebral vascular accident) Breast cancer, Onset Age: 50 Social History Household Members: Spouse Household Members Other:: and son Housing: House Do you presently have visiting nurse or other home services: No Alcohol intake: never Comment: no used for pain Patient Tobacco Use Status: Former Tobacco user Tobacco use type: Cigarette Years Smoked: 15 Years e-Cigarette/Vaping Use: Never Used Second Hand Smoke Exposure: No service: No Current occupational status: retired Cognitive needs: No Hearing needs: No Vision needs: Yes Female Reproductive History Menstrual Age of Menarche: 14 Review of Systems Const Denies body aches, Denies headache(s) and Denies poor appetite ENT Denies dysphagia, Denies dizziness, Denies headache(s), Denies nasal congestion and Denies nasal discharge Card Denies chest pain, Denies dyspnea and Reports dyspnea on exertion Resp Denies cough, Denies dyspnea and Reports dyspnea on exertion GI Reports as per HPI, Denies dysphagia and Denies heartburn Musc Denies back pain, Denies arthralgias, Denies muscle cramps and Denies muscle weakness Neuro Denies dizziness, Denies headache(s) and Denies focal weakness Wayne/Lymph Reports no additional complaints Physical Exam Vital Signs: Last Vital Signs Pulse 79 11/26/23 10:17 Pulse Ox 95 11/26/23 10:17 Oxygen Delivery Method Room Air 11/26/23 10:17 BMI result Body Mass Index 41.5 Const General: alert Neck Neck: Yes normal visual inspection, Yes full ROM and Yes no lymphadenopathy Chest Chest palpation & inspection: normal inspection of the chest Resp Auscultation: no wheezes and diminished lung sounds Cardio Rate: regular rate Rhythm: regular rhythm Heart sounds: S1 normal heart sound present and S2 normal heart sound present GI Palpation (GI): Soft to palpation and nontender Auscultation: normal bowel sounds General: Yes no CVA tenderness Back/Spine/Pelvis Back: no CVA tenderness Skin General skin exam: rashes and/or lesions noted Extrem Right lower extremity: foot (fluid blister was covered C/D/I) Assessment & Plan Assessment & Plan (1) Nonfamilial hypogammaglobulinemia: Code(s): D80.1 - Nonfamilial hypogammaglobulinemia Category: Medical (2) Pleural effusion: Comment: secondary to ascites. s/p thoracentesis. Code(s): J90 - Pleural effusion, not elsewhere classified Category: Medical (3) ERNIE (obstructive sleep apnea): Comment: Intolerant of CPAP Code(s): G47.33 - Obstructive sleep apnea (adult) (pediatric) Category: Medical (4) Moderate persistent asthma in adult without complication: Code(s): J45.40 - Moderate persistent asthma, uncomplicated Category: Medical (5) Ovarian carcinoma: Code(s): C56.9 - Malignant neoplasm of unspecified ovary Category: Medical Qualifiers: Laterality: unspecified laterality Qualified Code(s): C56.9 - Malignant neoplasm of unspecified ovary (6) Peritoneal carcinomatosis: Code(s): C78.6 - Secondary malignant neoplasm of retroperitoneum and peritoneum Category: Medical Plan restart IVIG, will receive today CXR [facility] as needed continue chemo positional sleep therapy, should sleep elevated F/U 2-3 months Orders: Orders XR chest 2V Today J90 - Pleural effusion, not elsewhere classified Referrals Infusion Center Notification D80.1 - Nonfamilial hypogammaglobulinemia Coding Level of Care Code Est Pt Level 4 (66817) Complex EM visit Add On G2211 Diagnoses Nonfamilial hypogammaglobulinemia D80.1 Pleural effusion J90 ERNIE (obstructive sleep apnea) G47.33 Moderate persistent asthma in adult without complication J45.40 Carcinoma of ovary, unspecified laterality C56.9 Laterality: unspecified laterality Peritoneal carcinomatosis C78.6 Time Spent (min) 20
[2023-11-26 10:17] VITALS: PULSE 79; O2SAT 95; BMI 41.5
== END 2023-11-26 10:44 | disposition home or self-care (01) ==
PROVIDERS: PCP Internal Medicine; Visit Provider Hospitalist
DX: D80.1 Nonfamilial hypogammaglobulinemia (principal); J90 Pleural effusion, not elsewhere classified; G47.33 Obstructive sleep apnea (adult) (pediatric); J45.40 Moderate persistent asthma, uncomplicated; C56.9 Malignant neoplasm of unspecified ovary; C78.6 Secondary malignant neoplasm of retroperitoneum and peritoneum
CPT/HCPCS: 99214; G2211

== ENCOUNTER → 2023-11-26 10:03 | Outpatient (BNVA) | payer MEDICARE, SELFPAY | LOC: CF 11-28 12:03 | PROVIDERS: PCP Internal Medicine; Visit Provider Hospitalist | DX: J45.40 Moderate persistent asthma, uncomplicated (principal); G47.33 Obstructive sleep apnea (adult) (pediatric); J90 Pleural effusion, not elsewhere classified; D80.1 Nonfamilial hypogammaglobulinemia; C56.9 Malignant neoplasm of unspecified ovary; C78.6 Secondary malignant neoplasm of retroperitoneum and peritoneum | CPT/HCPCS: 99212 ==

== ENCOUNTER 2023-11-28 12:04 | Outpatient (REF) | payer MEDICARE, SELFPAY ==
--- NOTE | ~2023-11-28 | XR_ITS ---
EXAMINATION: XR CHEST CLINICAL INFORMATION: Pleural effusion. COMPARISON: Most recent CT abdomen/pelvis dated 03/14/2023. TECHNIQUE: 2 views of the chest were obtained. FINDINGS: Trace right-sided pleural effusion, similar when compared to the CT from 2022. No left-sided pleural effusion. No pneumothorax. Stable cardiomediastinal silhouette. Minimal right basilar atelectasis. Right chest wall port with its catheter tip in the region of the SVC. XR/XR chest 2V IMPRESSION: Trace right-sided pleural effusion with minimal right basilar atelectasis, similar when compared to the CT from 2022.
== END 2023-11-28 12:05 | disposition home or self-care (01) ==
LOC: HO.XRAY 12:04
PROVIDERS: PCP Internal Medicine; Visit Provider Hospitalist
DX: J90 Pleural effusion, not elsewhere classified (principal)
CPT/HCPCS: 71046

== ENCOUNTER 2024-02-25 10:19 | Outpatient (AMB) | payer MEDICARE, SELFPAY ==
--- NOTE | 2024-02-25 10:26 | A.OFFVIS_ITS ---
Vital Signs 02/25/24 10:27 Height 5 ft 4 in Weight 230 lb BMI 39.5 BP 124/60 Blood Pressure Location Rt brachial Position Sitting Pulse 69 Pulse Source Pulse Oximeter Pulse Oximetry (%) 94 Oxygen Delivery Method Room Air Intake Visit Reasons: Asthma Bpm Architect Required: No Allergies cephalexin [Keflex] Allergy (Unknown, Verified 02/25/24 10:26) anaphylaxis glycine [From GAMMAGARD S/D] Adverse Reaction (Unknown, Verified 02/25/24 10:26) WEAKNESS IgA less than or equal to 50 mcg/mL [From GAMMAGARD S/D] Adverse Reaction (Unknown, Verified 02/25/24 10:26) WEAKNESS immune globulin,gamma (IgG) human [From GAMMAGARD S/D] Adverse Reaction (Unknown, Verified 02/25/24 10:) WEAKNESS Penicillins [PENICILLINS] Adverse Reaction (Unknown, Verified 02/25/24 10:) DIARRHEA atorvastatin Adverse Reaction (Verified 02/25/24 10:26) muscle ache pravastatin Adverse Reaction (Verified 02/25/24 10:) Muscle pain HPI Comments Details: The patient is a 73-year-old woman known asthma in addition to obstructive sleep apnea and hypogammaglobulinemia. She responded very well to the IgG infusions. Initially started with Gamunex C and was able to taper dose to 20 mg every 3 weeks. At some point due to a shortness of the medications she was placed on Gammagard and had series adverse reactions. She was subsequently taken off again regarding back to the gamma next see which is tolerating very well. In the meantime the patient has been having issues tolerate her CPAP. The CPAP therapy sometimes difficult because she feels significant nasal congestion and nasal obstruction. She is trying to lose weight. When she is able to lose about 40-50 lb or so we can consider repeating the sleep study to see if she has not requiring CPAP any longer. Her asthma appears to be stable at this time. 07/06/2020 the patient is here for pulmonary follow-up visit. Since we last spoke back in April she was diagnosed with COVID-19. She did require a brief ICU hospitalization. Subsequently discharged before. She actually did very well. He is actually doing very well. She recently did get vaccinated. She continues to get her fusions. Sometimes he has a hard time with her IV access. However she has not missed a dose because of the IV access. She continues to lose weight. She has been motivated to continue to do so. She is trying to exercise more. She has not had to use her rescue inhaler. Her actually . She will call the office if she needs 1. In the meantime the patient had is sleeping well. Denies any significant daytime drowsiness. I did offer her at some point to give her sleep study to make sure that he does not have any untreated sleep apnea that which should be worried about. 01/03/2022 the patient is here for a pulmonary follow-up visit. Overall the patient has been doing well from a respiratory status. Denies any recent illness. She is going on a cruise soon she will do her best to try to keep from getting sick. She continues to receive the augmentation therapy with the IVIG. Currently she is on therapy every 3 weeks because is hard for her to tolerate a higher dose. Will go ahead and check her IgG trough with the hope that her levels are well then we can extend the therapy a little longer. Will decide depending on her levels. The patient has not required her short-acting beta agonist recently. She did require couple weeks ago but otherwise she is doing well. No additional therapies warranted. 11/26/2023 the patient is here for pulmonary follow-up visit. The patient is frustrated with IgG levels. Apparently the patient was started on chemotherapy back in April. At that point in view of her significant aggressive chemotherapy regimen the plan was just to follow her IgG levels while she was getting chemotherapy. At the point that her levels drop below normal at that point will then encourage her to restart her IVIG therapy. Unfortunately, 1 getting a blood work from [facility] and the levels it throughout below 600. She also developed COVID. Now she has recovered from that. We did talk to the in fusion center. We are able to get her in to start the IVIG today. She will continue it every 3 weeks. She continue also getting blood work every 3 weeks. Once levels normalize she can consider stopping but at this point which is continue to make simple. Unfortunately she did not respond to the 1st came or 2nd chemo course. She is on her 3rd 1 which I believe is a trial. She unfortunately also had worsening shortness of breath. She had significant amount of ascites. She had a significant amount of fluid removed. Ultimately she also required a thoracentesis at [facility] for likely extravasation through her diaphragm. She does have still some shortness of breath and will have her get an x-ray today as well to see if any pleural effusion is rebuilding. 02/25/2024 the patient is here for pulmonary follow-up visit. Overall she is doing okay. The patient did have COVID since we last spoke back in November. She tolerated well without any significant symptoms. The patient did have a chest x-ray during the last visit and had a trace amount of pleural effusion. She is scheduled to undergo a CT scan in the coming weeks at [facility]. After review to see if there is any recurrent effusions. She has been getting the IgG therapy this has been effective. Once she gets her IgG in a few weeks she is going to get her flu shot and subsequently after that she is going to get her COVID shot. She has been sleeping on the recliner. She has been waking up tired. She was started on Ritalin and seems to be helping. Will go ahead and request an overnight oximetry while sleeping on room air to make sure she is getting adequate oxygenation at this time. [facility] Medical History (Updated 02/25/24 @ 20:46 by Artur Pierre MD) Hand weakness Pleural effusion 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 pain with right-sided sciatica Post-menopause Vitamin D deficiency Myalgia due to statin Moderate persistent asthma in adult without complication Tubular adenoma of colon Nonfamilial hypogammaglobulinemia Trigger finger De Quervain's disease (radial styloid tenosynovitis) Osteoarthritis of knee ERNIE (obstructive sleep apnea) Hiatal hernia Impaired fasting glucose Mixed dyslipidemia Hypertension COPD (chronic obstructive pulmonary disease) Surgical History History of colonoscopy with polypectomy History of bilateral knee replacement Hx of tonsillectomy Hx of cholecystectomy History of bowel resection Hx of appendectomy Family History Mother HTN (hypertension) Uterine cancer Father Colon cancer Sister CVA (cerebral vascular accident) Breast cancer, Onset Age: 50 Social History Household Members: Spouse Household Members Other:: and son Housing: House Do you presently have visiting nurse or other home services: No Alcohol intake: never Comment: no used for pain Patient Tobacco Use Status: Former Tobacco user Tobacco use type: Cigarette Years Smoked: 15 Years e-Cigarette/Vaping Use: Never Used Second Hand Smoke Exposure: No service: No Current occupational status: retired Cognitive needs: No Hearing needs: No Vision needs: Yes Female Reproductive History Menstrual Age of Menarche: 14 Review of Systems Const Denies body aches, Denies headache(s) and Denies poor appetite ENT Denies dysphagia, Denies dizziness, Denies headache(s), Denies nasal congestion and Denies nasal discharge Card Denies chest pain, Denies dyspnea and Reports dyspnea on exertion Resp Denies cough, Denies dyspnea and Reports dyspnea on exertion GI Reports as per HPI, Denies dysphagia and Denies heartburn Musc Denies back pain, Denies arthralgias, Denies muscle cramps, Reports muscle weakness and Reports tingling Neuro Denies dizziness, Denies headache(s), Denies focal weakness and Reports tingling Wayne/Lymph Reports no additional complaints Physical Exam Vital Signs: Last Vital Signs Pulse 69 02/25/24 10:27 BP 124/60 02/25/24 10:27 Pulse Ox 94 02/25/24 10:27 Oxygen Delivery Method Room Air 02/25/24 10:27 BMI result Body Mass Index 39.5 Const General: alert Neck Neck: Yes normal visual inspection, Yes full ROM and Yes no lymphadenopathy Chest Chest palpation & inspection: normal inspection of the chest Resp Auscultation: no wheezes and diminished lung sounds Cardio Rate: regular rate Rhythm: regular rhythm Heart sounds: S1 normal heart sound present and S2 normal heart sound present GI Palpation (GI): Soft to palpation and nontender Auscultation: normal bowel sounds General: Yes no CVA tenderness Back/Spine/Pelvis Back: no CVA tenderness Skin General skin exam: rashes and/or lesions noted Extrem Right lower extremity: foot (fluid blister was covered C/D/I) Assessment & Plan Assessment & Plan (1) Nonfamilial hypogammaglobulinemia: Code(s): D80.1 - Nonfamilial hypogammaglobulinemia Category: Medical (2) Pleural effusion: Comment: secondary to ascites. s/p thoracentesis. Code(s): J90 - Pleural effusion, not elsewhere classified Category: Medical (3) ERNIE (obstructive sleep apnea): Comment: Intolerant of CPAP Code(s): G47.33 - Obstructive sleep apnea (adult) (pediatric) Category: Medical (4) Moderate persistent asthma in adult without complication: Code(s): J45.40 - Moderate persistent asthma, uncomplicated Category: Medical (5) Ovarian carcinoma: Code(s): C56.9 - Malignant neoplasm of unspecified ovary Category: Medical Qualifiers: Laterality: unspecified laterality Qualified Code(s): C56.9 - Malignant neoplasm of unspecified ovary (6) Peritoneal carcinomatosis: Code(s): C78.6 - Secondary malignant neoplasm of retroperitoneum and peritoneum Category: Medical (7) Hand weakness: Comment: Likely from the chemotherapy Code(s): R29.898 - Other symptoms and signs involving the musculoskeletal system Category: Medical Plan continue IVIG CT ABD at [facility] as needed continue chemo overnight oximetry on RA positional sleep therapy, should sleep elevated physiatry referral F/U 3-4 months Orders: Orders Overnight Pulse Oximetry Today J45.40 - Moderate persistent asthma, uncomplicated, J90 - Pleural effusion, not elsewhere classified Referrals Physiatry Referral R29.898 - Other symptoms and signs involving the musculoskeletal system Coding Level of Care Code Est Pt Level 4 (19111) Complex EM visit Add On G2211 Diagnoses Nonfamilial hypogammaglobulinemia D80.1 Pleural effusion J90 ERNIE (obstructive sleep apnea) G47.33 Moderate persistent asthma in adult without complication J45.40 Carcinoma of ovary, unspecified laterality C56.9 Laterality: unspecified laterality Peritoneal carcinomatosis C78.6 Hand weakness R29.898 Time Spent (min) 16
[2024-02-25 10:27] VITALS: BP 124/60; PULSE 69; O2SAT 94; BMI 39.5
== END 2024-02-25 10:44 | disposition home or self-care (01) ==
PROVIDERS: PCP Internal Medicine; Visit Provider Hospitalist
DX: D80.1 Nonfamilial hypogammaglobulinemia (principal); J90 Pleural effusion, not elsewhere classified; G47.33 Obstructive sleep apnea (adult) (pediatric); J45.40 Moderate persistent asthma, uncomplicated; C56.9 Malignant neoplasm of unspecified ovary; C78.6 Secondary malignant neoplasm of retroperitoneum and peritoneum; R29.898 Other symptoms and signs involving the musculoskeletal system
CPT/HCPCS: 99214; G2211

== ENCOUNTER → 2024-02-25 10:19 | Outpatient (BNVA) | payer MEDICARE, SELFPAY | PROVIDERS: PCP Internal Medicine; Visit Provider Hospitalist | DX: D80.1 Nonfamilial hypogammaglobulinemia (principal); J90 Pleural effusion, not elsewhere classified; G47.33 Obstructive sleep apnea (adult) (pediatric); J45.40 Moderate persistent asthma, uncomplicated; C56.9 Malignant neoplasm of unspecified ovary; C78.6 Secondary malignant neoplasm of retroperitoneum and peritoneum; R29.898 Other symptoms and signs involving the musculoskeletal system | CPT/HCPCS: 99212 ==

== ENCOUNTER 2024-03-24 09:33 | Outpatient (AMB) | payer MEDICARE, SELFPAY ==
--- NOTE | 2024-03-24 10:03 | A.OFFVIS_ITS ---
Intake Vital Signs 03/24/24 10:09 Height 5 ft 3 in Weight 233 lb BMI 41.3 BP 112/60 Blood Pressure Location Lt brachial Position Sitting Pulse 63 Pulse Source Pulse Oximeter Pulse Oximetry (%) 96 Oxygen Delivery Method Room Air Intake Visit Reasons: SWV G0439 - see comments Intake Note: Pt is here today for her SWV: Last mammogram 10/06/22, bone density scan 08/17/20, colonoscopy 08/11/19 Allergies cephalexin [Keflex] Allergy (Unknown, Verified 03/24/24 10:28) anaphylaxis glycine [From GAMMAGARD S/D] Adverse Reaction (Unknown, Verified 03/24/24 10:28) WEAKNESS IgA less than or equal to 50 mcg/mL [From GAMMAGARD S/D] Adverse Reaction (Unknown, Verified 03/24/24 10:28) WEAKNESS immune globulin,gamma (IgG) human [From GAMMAGARD S/D] Adverse Reaction (Unknown, Verified 03/24/24 10:28) WEAKNESS Penicillins [PENICILLINS] Adverse Reaction (Unknown, Verified 03/24/24 10:28) DIARRHEA atorvastatin Adverse Reaction (Verified 03/24/24 10:28) muscle ache pravastatin Adverse Reaction (Verified 03/24/24 10:28) Muscle pain Medication List - Last Reconciled 03/24/24 by Stephanie Castle MD acetaminophen (Tylenol Extra Strength) 1,000 mg PO DAILY PRN albuterol sulfate 90 mcg/actuation 2 puffs inhalation Q4-6H PRN atenolol 25 mg PO DAILY 90 days celecoxib 200 mg PO DAILY PRN cholecalciferol (vitamin D3) 25 mcg PO DAILY coenzyme Q10 (Co Q-10) 400 mg PO DAILY ezetimibe 10 mg PO DAILY gabapentin 300 mg PO TID hydrochlorothiazide 25 mg PO DAILY 90 days lactobacillus combination no.9 (Adult 50 Plus Probiotic) 4,000 mmu cells PO DAILY mecobalamin (vitamin B12) mcg PO methylphenidate HCl (Ritalin) 5 mg PO BID HPI SWV G0439 - see comments HPI Details SWV ? 73-year-old lady with past medical history of chronic low back pain due to lumbar disc herniation with radiculopathy, moderate persistent asthma, hypogammaglobulinemia, osteoarthritis, obstructive sleep apnea on CPAP,, impaired fasting glucose, mixed dyslipidemia and gastroesophageal reflux, and diagnosed with peritoneal carcinomatosis s/p chemotherapy, and was started on Ritalin by her oncologist for chemotherapy-induced fatigue,presents today for her subsequent wellness visit.? Her last screening mammogram done October 2022 with benign findings, last colonoscopy was done 08/11/2019, to be repeated again in 2024. Last bone density scan done 08/17/2020 showed normal findings and last lipid and fasting glucose screen was in 2022 which showed slight elevations in her LDL cholesterol and fasting glucose in the prediabetic range. She is up-to-date with her pneumococcal vaccination, but has not yet had her flu vaccine or COVID booster, nor has she had her shingles vaccination yet ? Medical / Social History Reviewed? Past Medical History ?Yes . ? [place] of Care / Care Team list updated ?Yes . ? Surgical/Hospitalization History ?Yes . ? Current Medications (including OTC and supplements) ?Yes . ? Family History ?Yes . ? Tobacco Control form ?Yes . ? AUDIT-C (Alcohol use) form ?Yes . ? Illicit drug use in Social History ?Yes . ? Current diagnosis of depression? ?No ? Appropriate PHQ2/PHQ9 completed ?Yes . ? Data entered by ?Track Service Person and reviewed by provider ? Fall Risk ? Fall History? Have you had any falls with injury in the past year? ?No . ? Have you had two or more falls in the past year? ?No . ? Fall Risk Assessment: ?No falls in the past year . ? HRA filled out by the patient, reviewed by Provider and scan ? SWV ? Balance? Romberg ?Yes . ? Tandem walk ?Yes . ? Walk and Turn ?Yes . ? Rise from sit to stand ?Yes . ?Vision? Corrective lens ?Yes ? Vision screen ? Up-to-date, followed by Dr. Baird at [facility] every 6 weeks ?Hearing? Whisper test ?pass . ?Written Plan?Completed. See Patient Documents.? ? HPI Comments History of Present Illness Details She has been experiencing intermittent episodes of lightheadedness usually when getting up from a sitting or lying position, which has been present now for the last several weeks. Denies any syncopal attacks, no nausea, no chest pain or shortness of breath reported. Episodes when usually last several seconds and resolved spontaneously. [facility] Medical History (Updated 03/31/24 @ 02:01 by Stephanie Castle MD) Chemotherapy-induced fatigue Hand weakness Pleural effusion 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 pain with right-sided sciatica Post-menopause Vitamin D deficiency Myalgia due to statin Moderate persistent asthma in adult without complication Tubular adenoma of colon Nonfamilial hypogammaglobulinemia Trigger finger De Quervain's disease (radial styloid tenosynovitis) Osteoarthritis of knee ERNIE (obstructive sleep apnea) Hiatal hernia Impaired fasting glucose Mixed dyslipidemia Hypertension COPD (chronic obstructive pulmonary disease) Surgical History History of colonoscopy with polypectomy History of bilateral knee replacement Hx of tonsillectomy Hx of cholecystectomy History of bowel resection Hx of appendectomy Family History Mother HTN (hypertension) Uterine cancer Father Colon cancer Sister CVA (cerebral vascular accident) Breast cancer, Onset Age: 50 Social History Household Members: Spouse Household Members Other:: and son Housing: House Do you presently have visiting nurse or other home services: No Alcohol intake: never Comment: no used for pain Patient Tobacco Use Status: Former Tobacco user Tobacco use type: Cigarette Years Smoked: 15 Years e-Cigarette/Vaping Use: Never Used Second Hand Smoke Exposure: No service: No Current occupational status: retired Cognitive needs: No Hearing needs: No Vision needs: Yes Female Reproductive History Menstrual Age of Menarche: 14 Questionnaire Medicare Wellness Checkup [age] What gender do you identify with?: female During the past 4 weeks, how much have you been bothered by emotional problems such as feeling anxious, depressed, irritable, sad or downhearted, and blue?: not at all During the past 4 weeks, has your physical & emotional health limited your social activities with family, friends, neighbors, or groups?: slightly During the past 4 weeks, how much bodily pain have you generally had?: moderate pain During the past 4 weeks, was someone available to help you if you needed & wanted help?: yes, as much as I wanted During the past 4 weeks, what was the hardest physical activity you could do for at least 2 minutes?: moderate Can you get to places out of walking distance without help? (For eg., can you travel alone on buses, taxis or drive your car?): Yes Can you go shopping for groceries or clothes without someone's help?: No Can you prepare your own meals?: Yes Can you do your housework without help?: No Because of any health problems, do you need the help of another person with your personal care needs such as eating, bathing, dressing or getting around the house?: No Can you handle your own money without help?: Yes During the past 4 weeks, how would you rate your health in general?: fair During the past 4 weeks how have things been going for you?: good & bad parts about equal Are you having difficulties driving your car?: no Do you always fasten your seat belt when you are in a car?: yes, usually During past 4 weeks, have you been bothered by the following: never: Sexual problems?, Trouble eating well?, Teeth or denture problems? and Problems using the telephone?, sometimes: Falling or dizzy when standing up and often: Tiredness or fatigue? Have you fallen 2 or more times in the past year?: No Are you afraid of falling?: No Are you a smoker?: no During the past 4 weeks, how many drinks of wine, beer, or other alcoholic beverages did you have?: no alcohol at all Do you exercise for about 20 minutes 3 or more times a week?: no, I usually do not exercise this much Have you been given information to help with the following?: no: Hazards in your house that might hurt you? and no: Keeping track of your medications? How often do you have trouble taking medicines the way you have been told to take them?: I always take medicine as prescribed How confident are you that you can control & manage most of your health problems?: very confident What is your race?: White Mini Mental State Exam (MMSE) Orientation What is the (year) (season) (date) (day) (month)?: year (2023), season (Fall), date (03/24/2024), day (Sunday) and month (March) Where are we (state) (county) (town or city) (hospital) (floor)?: state ([facility]), [facility] ([place]), town or city ([place]) and hospital/clinic ([facility]) Score Score: 9 Activity of Daily Living Bathing - sponge bath, tub bath or shower: receives no assistance (gets in/out by self, if usual bathing means Dressing - getting clothes from closets & drawers, including inner/outer garments & fasteners.: gets clothes & gets completely dressed without help Toileting - going to the 'toilet room' for urine/bowel elimination & cleaning self/arranging clothes: goes to toilet room, cleans self, arranges clothes without help Transfer: moves in & out of bed and chair without help (may use support object) Continence: has occasional 'accidents' Feeding: feeds self without help Total Score: 0 Information obtained from: patient Using telephone: independent Traveling: needs assistance Shopping: dependent Preparing meals: needs assistance Housework: dependent Taking medicine: independent Managing money: independent PHQ-9 Over the last 2 weeks, how often have you been bothered by any of the following problems? 1. Little interest or pleasure in doing things: not at all 2. Feeling down, depressed, or hopeless: not at all 3. Trouble falling or staying asleep, or sleeping too much: several days 4. Feeling tired or having little energy: not at all 5. Poor appetite or overeating: not at all 6. Feeling bad about yourself - or that you are a failure or have let yourself or your family down: not at all 7. Trouble concentrating on things, such as reading the newspaper or watching television: not at all 8. Moving or speaking so slowly that other people could have noticed. Or the opposite - being so fidgety or restless that you have been moving around a lot more than usual: not at all 9. Thoughts that you would be better off or of hurting yourself in some way: not at all Total score: 1 Depression Screening Interpretation: Negative Depression Screening Done: Yes 53330 - PHQ-9 Billing: Yes Source: Developed by Drs. Bj Price, Lela Richmond, Tahir Sharma and colleagues, with an educational itzel from [employer]. Review of Systems Const Reports as per HPI, Denies fever(s), Denies frequent falls and Denies headache(s) Eyes Denies change in vision ENT Denies headache(s) Card Denies chest pain, Denies syncope, Denies palpitations and Denies dyspnea Resp Denies cough and Denies dyspnea Neuro Denies syncope, Denies frequent falls and Denies headache(s) Endo Denies palpitations Physical Exam Vital Signs: Last Vital Signs Pulse 63 03/24/24 10:09 BP 112/60 03/24/24 10:09 Pulse Ox 96 03/24/24 10:09 Oxygen Delivery Method Room Air 03/24/24 10:09 BMI result Body Mass Index 41.3 Const Other: Alert oriented x3, no acute distress noted ambulatory normal gait Orientation/consciousness: patient oriented x3 Neck Neck: Yes full ROM, Yes no lymphadenopathy and Yes supple Resp Auscultation: clear to auscultation bilaterally Cardio Other: S1-S2 present regular rate and rhythm Neuro General: patient oriented x3, gait normal, tone normal, moves all extremities and no focal motor deficits Assessment & Plan Assessment & Plan (1) Encounter for subsequent annual wellness visit (AWV) in Medicare patient: Code(s): Z00.00 - Encounter for general adult medical examination without abnormal findings Plan: Medical wellness checklist reviewed, discussed with patient and updated. Reminded to get her yearly flu vaccine and COVID booster as well as shingles vaccination. (2) Benign paroxysmal positional vertigo: Code(s): H81.10 - Benign paroxysmal vertigo, unspecified ear Plan: Referred to vestibular rehab physical therapy for further evaluation management for possible positional vertigo (3) Peritoneal carcinomatosis: Code(s): C78.6 - Secondary malignant neoplasm of retroperitoneum and peritoneum Plan: Followed by Oncology, Dr. Thibodeaux and Dr. Clark (4) Moderate persistent asthma in adult without complication: Code(s): J45.40 - Moderate persistent asthma, uncomplicated Plan: Has albuterol inhaler to be used as needed for episodes of bronchospasm and wheezing (5) Tubular adenoma of colon: Code(s): D12.6 - Benign neoplasm of colon, unspecified Plan: Due for repeat colonoscopy again in 2024 (6) Nonfamilial hypogammaglobulinemia: Code(s): D80.1 - Nonfamilial hypogammaglobulinemia Plan: On Gamunex followed by Pulmonary Clinic (7) ERNIE (obstructive sleep apnea): Comment: Intolerant of CPAP Code(s): G47.33 - Obstructive sleep apnea (adult) (pediatric) Plan: On CPAP (8) Mixed dyslipidemia: Code(s): E78.2 - Mixed hyperlipidemia Plan: Takes ezetimibe 10 mg daily (9) Hypertension: Code(s): I10 - Essential (primary) hypertension Qualifiers: Hypertension type: primary hypertension Qualified Code(s): I10 - Essential (primary) hypertension Plan: Currently taking hydrochlorothiazide 25 mg daily in a.m. and atenolol 25 mg once a day (10) Chemotherapy-induced fatigue: Code(s): R53.83 - Other fatigue; T45.1X5A - Adverse effect of antineoplastic and immunosuppressive drugs, initial encounter Plan: Started by oncologist on Ritalin Orders: Orders PT Evaluation and Treatment 03/24/24 H81.10 - Benign paroxysmal vertigo, unspecified ear Quality Reporting (2019) Depression/Bipolar (159/160/161/177) PHQ-9: Total score: 1 Coding Level of Care Code Medicare Subsequent (G0439) Est Pt Level 3 (04197) Diagnoses Encounter for subsequent annual wellness visit (AWV) in Medicare patient Z00.00 Benign paroxysmal positional vertigo H81.10 Peritoneal carcinomatosis C78.6 Moderate persistent asthma in adult without complication J45.40 Tubular adenoma of colon D12.6 Nonfamilial hypogammaglobulinemia D80.1 ERNIE (obstructive sleep apnea) G47.33 Mixed dyslipidemia E78.2 Primary hypertension I10 Hypertension type: primary hypertension Chemotherapy-induced fatigue R53.83; T45.1X5A Additional Codes PHQ-9 - 58880 - PHQ-9 Billing: Yes ([id number]) Advance Care Planning Date of discussion: 03/24/24 Who was present: Patient and daughter Forms completed: None
[2024-03-24 10:09] VITALS: BP 112/60; PULSE 63; O2SAT 96; BMI 41.3
== END 2024-03-24 11:09 | disposition home or self-care (01) ==
PROVIDERS: PCP Internal Medicine; Visit Provider Internal Medicine
DX: Z00.00 Encounter for general adult medical examination without abnormal findings (principal); D80.1 Nonfamilial hypogammaglobulinemia; C78.6 Secondary malignant neoplasm of retroperitoneum and peritoneum; J45.40 Moderate persistent asthma, uncomplicated; D12.6 Benign neoplasm of colon, unspecified; G47.33 Obstructive sleep apnea (adult) (pediatric); E78.2 Mixed hyperlipidemia; I10 Essential (primary) hypertension; R53.83 Other fatigue; T45.1X5A Adverse effect of antineoplastic and immunosuppressive drugs, initial encounter

== ENCOUNTER → 2024-03-24 09:33 | Outpatient (BNVA) | payer MEDICARE, SELFPAY | PROVIDERS: PCP Internal Medicine; Visit Provider Internal Medicine | DX: Z00.00 Encounter for general adult medical examination without abnormal findings (principal); H81.10 Benign paroxysmal vertigo, unspecified ear; C78.6 Secondary malignant neoplasm of retroperitoneum and peritoneum; J45.40 Moderate persistent asthma, uncomplicated; D12.6 Benign neoplasm of colon, unspecified; D80.1 Nonfamilial hypogammaglobulinemia; E78.2 Mixed hyperlipidemia; I10 Essential (primary) hypertension; G47.33 Obstructive sleep apnea (adult) (pediatric); R53.83 Other fatigue | CPT/HCPCS: 96127; 99212 ==

== ENCOUNTER 2024-03-28 14:20 | Outpatient (REF) | payer MEDICARE, SELFPAY ==
--- NOTE | 2024-03-28 14:23 | EMG_ITS ---
Chief complaint: History of chemotherapy and presumed neuropathy. Noticed recently difficulty with making a fist. Noted atrophy of left FDI. Reason for referral: Evaluate for Carpal Tunnel Syndrome Referred by: Angel HENRY Procedure done: Bilateral upper extremities NCS/EMG Precautions and/or limitations: None The limb temperature was monitored continuously and remained between 32-36 degrees C during the performance of the NCS. Ulnar motor NCS was performed with moderate elbow flexion between 70-90 degrees, with across-elbow distance of 10 cm. Nerve Conduction Studies Anti Sensory Summary Table ?Stim Site NR Onset (ms) Norm Onset (ms) Peak (ms) Norm Peak (ms) O-P Amp (?V) Norm O-P Amp Site1 Site2 Delta-0 (ms) Dist (cm) Quinten (m/s) Norm Quinten (m/s) Left Median Anti Sensory (2nd Digit) Wrist ? 3.0 3.9 <3.6 17.5 >10 Wrist 2nd Digit 3.0 14.0 47 Right Median Anti Sensory (2nd Digit) Wrist ? 2.9 3.9 <3.6 11.9 >10 Wrist 2nd Digit 2.9 14.0 48 Right Radial Anti Sensory (Thumb) Forearm ? 1.0 2.3 <3.1 14.6 Forearm Thumb 1.0 0.0 Left Ulnar Anti Sensory (5th Digit) Wrist ? 2.8 3.5 <3.7 3.6 >15.0 Wrist 5th Digit 2.8 14.0 50 Right Ulnar Anti Sensory (5th Digit) Wrist ? 2.6 3.5 <3.7 15.4 >15.0 Wrist 5th Digit 2.6 14.0 54 Motor Summary Table ?Stim Site NR Onset (ms) Norm Onset (ms) O-P Amp (mV) Norm O-P Amp iAmp (mV) Amp (1st) (%) Site1 Site2 Delta-0 (ms) Dist (cm) Quinten (m/s) Norm Quinten (m/s) Left Median Motor (Abd Poll Brev) Wrist ? 4.2 <3.9 3.9 >4.5 4.5 100.0 Elbow Wrist 4.7 21.5 46 >45 Elbow ? 8.9 2.9 3.4 74.4 Right Median Motor (Abd Poll Brev) Wrist ? 4.2 <3.9 5.3 >4.5 5.9 100.0 Elbow Wrist 4.2 20.0 48 >45 Elbow ? 8.4 4.6 5.4 86.8 Left Ulnar Motor (Abd Dig Minimi) Wrist ? 2.8 <3.0 5.6 >5 6.6 100.0 B Elbow Wrist 3.8 17.5 46 >45 B Elbow ? 6.6 4.0 4.8 71.4 A Elbow B Elbow 1.8 10.0 56 >45 A Elbow ? 8.4 2.9 3.5 51.8 Right Ulnar Motor (Abd Dig Minimi) Wrist ? 2.8 <3.0 6.9 >5 8.7 100.0 B Elbow Wrist 3.6 19.0 53 >45 B Elbow ? 6.4 4.1 5.1 59.4 A Elbow B Elbow 1.5 10.0 67 >45 A Elbow ? 7.9 4.6 5.8 66.7 EMG ?Side Muscle Nerve Root Ins Act Fibs Psw Amp Dur Poly Recrt Int Pat Comment Right 1stDorInt Ulnar C8-T1 Nml Nml Nml Nml Nml 0 Nml Complete Right FlexCarRad Median C6-7 Nml Nml Nml Nml Nml 0 Nml Complete Right Biceps Musculocut C5-6 Nml Nml Nml Nml Nml 0 Nml Complete Right Triceps Radial C6-7-8 Nml Nml Nml Nml Nml 0 Nml Complete Right Deltoid Axillary C5-6 Nml Nml Nml Nml Nml 0 Nml Complete Left 1stDorInt Ulnar C8-T1 Incr 1+ 1+ Nml Nml 0 Nml Complete Left FlexCarRad Median C6-7 Nml Nml Nml Nml Nml 0 Nml Complete Left Biceps Musculocut C5-6 Nml Nml Nml Nml Nml 0 Nml Complete Left Triceps Radial C6-7-8 Nml Nml Nml Nml Nml 0 Nml Complete Left Deltoid Axillary C5-6 Nml Nml Nml Nml Nml 0 Nml Complete Paraspinal EMG ?Side Muscle Nerve Root Ins Act Fibs Psw Comment Right Cervical Upper Rami Nml Nml Nml Right Cervical Mid Rami Nml Nml Nml Right Cervical Lower Rami Nml Nml Nml Left Cervical Upper Rami Nml Nml Nml Left Cervical Mid Rami Nml Nml Nml Left Cervical Lower Rami Nml Nml Nml FINDINGS: Bilateral median motor nerves showed prolonged distal latency, normal amplitude and normal conduction velocity. Left ulnar motor nerve showed normal distal latency, drop in amplitude above the elbow and normal conduction velocity. Bilateral median sensory nerves showed prolonged peak latency. Left ulnar sensory nerve showed normal peak latency but small amplitude. All other nerves tested were within normal. Concentric needle EMG was performed in selected muscles of the bilateral upper extremities and cervical paraspinals. Study revealed signs of electric abnormalities as shown in the table above. Left FDI showed increased insertional activity, PSWs and fibrillations. IMPRESSION: 1. This is an abnormal study. 2. There is electrodiagnostic evidence for bilateral moderate-severe median neuropathy at the wrist, consistent with carpal tunnel syndrome. 3. There is electrodiagnostic evidence for left ulnar neuropathy at the elbow. 4. Evidence of possible Wu Bev anastomosis, bilateral, was seen, which is a normal anatomic variant. 5. There is no electrodiagnostic evidence for brachial plexopathy or cervical radiculopathy. Thank you for your kind referral. Ingrid Dickson MD, SANDRO Board Certified, [place] Board of Physical Medicine and Rehabilitation (ABPMR) Board Certified, [place] Board of Electrodiagnostic Medicine (ABEM) CODIN [phone] x 2 MTDD
== END 2024-03-28 14:21 | disposition home or self-care (01) ==
LOC: HO.NEURO 14:20
PROVIDERS: PCP Internal Medicine
DX: R20.0 Anesthesia of skin (principal); R20.2 Paresthesia of skin
CPT/HCPCS: 95886; 95911

== ENCOUNTER → 2024-03-28 14:23 | Outpatient (BNV) | payer MEDICARE, SELFPAY | PROVIDERS: PCP Internal Medicine; Visit Provider Physical Medicine & Rehabilitation | DX: G56.03 Carpal tunnel syndrome, bilateral upper limbs (principal); G56.22 Lesion of ulnar nerve, left upper limb | CPT/HCPCS: 95886; 95911 ==

== ENCOUNTER 2024-04-08 10:58 | Outpatient (AMB) | payer MEDICARE, SELFPAY ==
--- NOTE | 2024-04-08 11:14 | A.OFFVIS_ITS ---
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 EMG done on 03/28/2024. Patient reports her symptoms have been going on for roughly 5 months. She is unable to make closed fist with both herb hands. She has occasional radiating pain into her arms and shoulders. She expresses numbness in all of her digits if her bilateral hands. Difficulty with gripping, grasping and lifting. She is unable to sleep due to her symptoms and sleeps on a recliner so she does not have her arms fall asleep. Allergies cephalexin [Keflex] Allergy (Unknown, Verified 04/08/24 11:16) anaphylaxis glycine [From GAMMAGARD S/D] Adverse Reaction (Unknown, Verified 04/08/24 11:16) WEAKNESS IgA less than or equal to 50 mcg/mL [From GAMMAGARD S/D] Adverse Reaction (Unknown, Verified 04/08/24 11:16) WEAKNESS immune globulin,gamma (IgG) human [From GAMMAGARD S/D] Adverse Reaction (Unknown, Verified 04/08/24 11:16) WEAKNESS Penicillins [PENICILLINS] Adverse Reaction (Unknown, Verified 04/08/24 11:16) DIARRHEA atorvastatin Adverse Reaction (Verified 04/08/24 11:16) muscle ache pravastatin Adverse Reaction (Verified 04/08/24 11:16) Muscle pain HPI HPI 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 The patient states that all digits of her bilateral hands go numb, and then her symptoms are intermittent, daily, and worse at night. The patient states that all digits are involved. Of note, the patient states that she is not sure if she would be able to participate in any surgical intervention at this time, as she is actively undergoing chemotherapy. No other acute complaints or concerns at this time. [facility] Medical History (Updated 04/08/24 @ 15:47 by ELAINE Gunter) Chemotherapy-induced fatigue Hand weakness Pleural effusion 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 pain with right-sided sciatica Post-menopause Vitamin D deficiency Myalgia due to statin Moderate persistent asthma in adult without complication Tubular adenoma of colon Nonfamilial hypogammaglobulinemia Trigger finger De Quervain's disease (radial styloid tenosynovitis) Osteoarthritis of knee ERNIE (obstructive sleep apnea) Hiatal hernia Impaired fasting glucose Mixed dyslipidemia Hypertension COPD (chronic obstructive pulmonary disease) Surgical History History of colonoscopy with polypectomy History of bilateral knee replacement Hx of tonsillectomy Hx of cholecystectomy History of bowel resection Hx of appendectomy Family History Mother HTN (hypertension) Uterine cancer Father Colon cancer Sister CVA (cerebral vascular accident) Breast cancer, Onset Age: 50 Social History Household Members: Spouse Household Members Other:: and son Housing: House Do you presently have visiting nurse or other home services: No Alcohol intake: never Comment: no used for pain Patient Tobacco Use Status: Former Tobacco user Tobacco use type: Cigarette Years Smoked: 15 Years e-Cigarette/Vaping Use: Never Used Second Hand Smoke Exposure: No service: No Current occupational status: retired Cognitive needs: No Hearing needs: No Vision needs: Yes Female Reproductive History Menstrual Age of Menarche: 14 Review of Systems Const All systems reviewed & are unremarkable except as noted in HPI and below Physical Exam Vital Signs: BMI result Body Mass Index 40.7 Extrem Other: Neuro: Numbness in the tips of all digits of bilateral hands at this time No thenar or intrinsic wasting. Good APB muscle firing and good finger cross. Vascular: Capillary refill brisk. ROM: Patient can make a fist and extend all their digits. Skin: No lacerations or abrasions noted. General: No ecchymosis. No erythema or evidence of infection. Results Reviewed Results Reviewed: IMPRESSION: 1. This is an abnormal study. 2. There is electrodiagnostic evidence for bilateral moderate-severe median neuropathy at the wrist, consistent with carpal tunnel syndrome. 3. There is electrodiagnostic evidence for left ulnar neuropathy at the elbow. 4. Evidence of possible Wu Bev anastomosis, bilateral, was seen, which is a normal anatomic variant. 5. There is no electrodiagnostic evidence for brachial plexopathy or cervical radiculopathy. Ingrid Dickson MD, SANDRO Assessment & Plan Assessment & Plan (1) Hand weakness: Comment: Likely from the chemotherapy Code(s): R29.898 - Other symptoms and signs involving the musculoskeletal system Category: Medical (2) Carpal tunnel syndrome, bilateral: Code(s): G56.03 - Carpal tunnel syndrome, bilateral upper limbs Category: Medical (3) Cubital tunnel syndrome on left: Code(s): G56.22 - Lesion of ulnar nerve, left upper limb Category: Medical Plan 1. Carpal tunnel syndrome, bilateral 2. Cubital tunnel syndrome, left Symptoms almost constant, daily, worse at night Patient is educated about this condition and the treatment options available, namely surgery However, the patient expresses that she is apprehensive about any surgical intervention at this time, as she is currently undergoing active chemotherapy and is unsure if she will be able to undergo surgery with these medications on board The patient states she will get clearance from her oncologist to determine if surgery would be an option Patient is educated that we do not necessarily have to do the cubital tunnel release, and that if she could do a surgery under local anesthesia, carpal tunnel release would be an option at that point Patient states understanding of this 3. Weakness of bilateral hands Patient was referred to occupational therapy for range of motion and strengthening of bilateral hands Patient was amenable to this plan Patient will follow-up after she speaks to her oncologist with regards to if she can have surgery, sooner with any acute concerns Orders: Orders OT Evaluation and Treatment Today R29.898 - Other symptoms and signs involving the musculoskeletal system Coding Level of Care Code New Pt Level 3 (65703) Diagnoses Hand weakness R29.898 Carpal tunnel syndrome, bilateral G56.03 Cubital tunnel syndrome on left G56.22
[2024-04-08 11:16] VITALS: BMI 40.7
== END 2024-04-08 11:42 | disposition home or self-care (01) ==
PROVIDERS: PCP Internal Medicine
DX: R29.898 Other symptoms and signs involving the musculoskeletal system (principal); G56.03 Carpal tunnel syndrome, bilateral upper limbs; G56.22 Lesion of ulnar nerve, left upper limb
CPT/HCPCS: 99203

== ENCOUNTER → 2024-04-08 10:58 | Outpatient (BNVA) | payer MEDICARE, SELFPAY | PROVIDERS: PCP Internal Medicine | DX: G56.03 Carpal tunnel syndrome, bilateral upper limbs (principal); G56.22 Lesion of ulnar nerve, left upper limb; R29.898 Other symptoms and signs involving the musculoskeletal system | CPT/HCPCS: 99202 ==

== ENCOUNTER 2024-05-28 09:37 | Outpatient (AMB) | payer MEDICARE, SELFPAY ==
--- NOTE | 2024-05-28 09:39 | MHC.OFFVIS ---
Vital Signs 05/28/24 09:42 Height 5 ft 3 in Weight 238 lb 1.588 oz BMI 42.2 BP 128/80 Blood Pressure Location Rt brachial Position Sitting Pulse 69 Pulse Source Pulse Oximeter Pulse Oximetry (%) 98 Oxygen Delivery Method Room Air Intake Visit Reasons: Asthma Allergies cephalexin [Keflex] Allergy (Unknown, Verified 05/28/24 09:46) anaphylaxis glycine [From GAMMAGARD S/D] Adverse Reaction (Unknown, Verified 05/28/24 09:46) WEAKNESS IgA less than or equal to 50 mcg/mL [From GAMMAGARD S/D] Adverse Reaction (Unknown, Verified 05/28/24 09:46) WEAKNESS immune globulin,gamma (IgG) human [From GAMMAGARD S/D] Adverse Reaction (Unknown, Verified 05/28/24 09:46) WEAKNESS Penicillins [PENICILLINS] Adverse Reaction (Unknown, Verified 05/28/24 09:46) DIARRHEA atorvastatin Adverse Reaction (Verified 05/28/24 09:46) muscle ache pravastatin Adverse Reaction (Verified 05/28/24:46) Muscle pain HPI Comments Details: The patient is a 74-year-old woman known asthma in addition to obstructive sleep apnea and hypogammaglobulinemia. She responded very well to the IgG infusions. Initially started with Gamunex C and was able to taper dose to 20 mg every 3 weeks. At some point due to a shortness of the medications she was placed on Gammagard and had series adverse reactions. She was subsequently taken off again regarding back to the gamma next see which is tolerating very well. In the meantime the patient has been having issues tolerate her CPAP. The CPAP therapy sometimes difficult because she feels significant nasal congestion and nasal obstruction. She is trying to lose weight. When she is able to lose about 40-50 lb or so we can consider repeating the sleep study to see if she has not requiring CPAP any longer. Her asthma appears to be stable at this time. 07/06/2020 the patient is here for pulmonary follow-up visit. Since we last spoke back in April she was diagnosed with COVID-19. She did require a brief ICU hospitalization. Subsequently discharged before. She actually did very well. He is actually doing very well. She recently did get vaccinated. She continues to get her fusions. Sometimes he has a hard time with her IV access. However she has not missed a dose because of the IV access. She continues to lose weight. She has been motivated to continue to do so. She is trying to exercise more. She has not had to use her rescue inhaler. Her actually . She will call the office if she needs 1. In the meantime the patient had is sleeping well. Denies any significant daytime drowsiness. I did offer her at some point to give her sleep study to make sure that he does not have any untreated sleep apnea that which should be worried about. 01/03/2022 the patient is here for a pulmonary follow-up visit. Overall the patient has been doing well from a respiratory status. Denies any recent illness. She is going on a cruise soon she will do her best to try to keep from getting sick. She continues to receive the augmentation therapy with the IVIG. Currently she is on therapy every 3 weeks because is hard for her to tolerate a higher dose. Will go ahead and check her IgG trough with the hope that her levels are well then we can extend the therapy a little longer. Will decide depending on her levels. The patient has not required her short-acting beta agonist recently. She did require couple weeks ago but otherwise she is doing well. No additional therapies warranted. 11/26/2023 the patient is here for pulmonary follow-up visit. The patient is frustrated with IgG levels. Apparently the patient was started on chemotherapy back in April. At that point in view of her significant aggressive chemotherapy regimen the plan was just to follow her IgG levels while she was getting chemotherapy. At the point that her levels drop below normal at that point will then encourage her to restart her IVIG therapy. Unfortunately, 1 getting a blood work from [facility] and the levels it throughout below 600. She also developed COVID. Now she has recovered from that. We did talk to the infusion center. We are able to get her in to start the IVIG today. She will continue it every 3 weeks. She continue also getting blood work every 3 weeks. Once levels normalize she can consider stopping but at this point which is continue to make simple. Unfortunately she did not respond to the 1st came or 2nd chemo course. She is on her 3rd 1 which I believe is a trial. She unfortunately also had worsening shortness of breath. She had significant amount of ascites. She had a significant amount of fluid removed. Ultimately she also required a thoracentesis at [facility] for likely extravasation through her diaphragm. She does have still some shortness of breath and will have her get an x-ray today as well to see if any pleural effusion is rebuilding. 02/25/2024 the patient is here for pulmonary follow-up visit. Overall she is doing okay. The patient did have COVID since we last spoke back in November. She tolerated well without any significant symptoms. The patient did have a chest x-ray during the last visit and had a trace amount of pleural effusion. She is scheduled to undergo a CT scan in the coming weeks at [facility]. After review to see if there is any recurrent effusions. She has been getting the IgG therapy this has been effective. Once she gets her IgG in a few weeks she is going to get her flu shot and subsequently after that she is going to get her COVID shot. She has been sleeping on the recliner. She has been waking up tired. She was started on Ritalin and seems to be helping. Will go ahead and request an overnight oximetry while sleeping on room air to make sure she is getting adequate oxygenation at this time. 05/28/2024 the patient is here for a pulmonary follow-up visit. Overall the patient has been doing okay. She does feel fatigued. She was recently placed on Ritalin for chronic fatigue. Her dose was increased. She is feeling a little better. In the meantime her Carter score is elevated 24. She did have a overnight oximetry which actually demonstrate that she desaturated down to the 70s and she spent more than now were below 88%. The patient does have history obstructive airway disease so therefore will start her on oxygen 2 L at nighttime. She will continue with current respiratory therapy. The patient also continues to receive the IVIG infusions for her hypogammaglobulinemia. She did have a CT scan of the chest in April done at [facility]. It was personally by me and also reviewed her CT scan that she had an February. Both demonstrated areas of ground-glass opacities. But, her near CT scan does have also ground-glass nodular densities. Indeed this may be related to her chemotherapy although need to follow. She is scheduled to undergo a repeat CT scan in the coming months. [facility] Medical History (Updated 05/28/24 @ 19:11 by Artur Pierre MD) Pulmonary nodules Asthma-COPD overlap syndrome Pneumonitis Chemotherapy-induced fatigue Hand weakness Pleural effusion 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 pain with right-sided sciatica Post-menopause Vitamin D deficiency Myalgia due to statin Moderate persistent asthma in adult without complication Tubular adenoma of colon Nonfamilial hypogammaglobulinemia Trigger finger De Quervain's disease (radial styloid tenosynovitis) Osteoarthritis of knee ERNIE (obstructive sleep apnea) Hiatal hernia Impaired fasting glucose Mixed dyslipidemia Hypertension COPD (chronic obstructive pulmonary disease) Surgical History History of colonoscopy with polypectomy History of bilateral knee replacement Hx of tonsillectomy Hx of cholecystectomy History of bowel resection Hx of appendectomy Family History Mother HTN (hypertension) Uterine cancer Father Colon cancer Sister CVA (cerebral vascular accident) Breast cancer, Onset Age: 50 Social History Household Members: Spouse Household Members Other:: and son Housing: House Do you presently have visiting nurse or other home services: No Alcohol intake: never Comment: no used for pain Patient Tobacco Use Status: Former Tobacco user Tobacco use type: Cigarette Years Smoked: 15 Years e-Cigarette/Vaping Use: Never Used Second Hand Smoke Exposure: No service: No Current occupational status: retired Cognitive needs: No Hearing needs: No Vision needs: Yes Female Reproductive History Menstrual Age of Menarche: 14 Review of Systems Const Denies body aches, Denies headache(s) and Denies poor appetite ENT Denies dysphagia, Denies dizziness, Denies headache(s), Denies nasal congestion and Denies nasal discharge Card Denies chest pain, Denies dyspnea and Reports dyspnea on exertion Resp Denies cough, Denies dyspnea and Reports dyspnea on exertion GI Reports as per HPI, Denies dysphagia and Denies heartburn Musc Denies back pain, Denies arthralgias, Denies muscle cramps, Reports muscle weakness and Reports tingling Neuro Denies dizziness, Denies headache(s), Denies focal weakness and Reports tingling Wayne/Lymph Reports no additional complaints Physical Exam Vital Signs: Last Vital Signs Pulse 69 05/28/24 09:42 BP 128/80 05/28/24 09:42 Pulse Ox 98 01/22/25 09:42 Oxygen Delivery Method Room Air 05/28/24 09:42 BMI result Body Mass Index 42.2 Const General: alert Neck Neck: Yes normal visual inspection, Yes full ROM and Yes no lymphadenopathy Chest Chest palpation & inspection: normal inspection of the chest Resp Auscultation: no wheezes and diminished lung sounds Cardio Rate: regular rate Rhythm: regular rhythm Heart sounds: S1 normal heart sound present and S2 normal heart sound present GI Palpation (GI): Soft to palpation and nontender Auscultation: normal bowel sounds General: Yes no CVA tenderness Back/Spine/Pelvis Back: no CVA tenderness Skin General skin exam: rashes and/or lesions noted Extrem Right lower extremity: foot (fluid blister was covered C/D/I) Assessment & Plan Assessment & Plan (1) Nonfamilial hypogammaglobulinemia: Code(s): D80.1 - Nonfamilial hypogammaglobulinemia Category: Medical (2) Pleural effusion: Comment: secondary to ascites. s/p thoracentesis. Code(s): J90 - Pleural effusion, not elsewhere classified Category: Medical (3) ERNIE (obstructive sleep apnea): Comment: Intolerant of CPAP Code(s): G47.33 - Obstructive sleep apnea (adult) (pediatric) Category: Medical (4) Moderate persistent asthma in adult without complication: Code(s): J45.40 - Moderate persistent asthma, uncomplicated Category: Medical (5) Ovarian carcinoma: Code(s): C56.9 - Malignant neoplasm of unspecified ovary Category: Medical Qualifiers: Laterality: unspecified laterality Qualified Code(s): C56.9 - Malignant neoplasm of unspecified ovary (6) Peritoneal carcinomatosis: Code(s): C78.6 - Secondary malignant neoplasm of retroperitoneum and peritoneum Category: Medical (7) Pneumonitis: Code(s): J98.4 - Other disorders of lung Category: Medical (8) Asthma-COPD overlap syndrome: Code(s): J44.89 - Other specified chronic obstructive pulmonary disease Category: Medical (9) Pulmonary nodules: Code(s): R91.8 - Other nonspecific abnormal finding of lung field Category: Medical Plan continue IVIG CT chest/abd [facility] in 2 months MELANI as needed continue chemo overnight oximetry on RA-needs start Supplemetal oxygen while sleepinl/min positional sleep therapy, should sleep elevated F/U 3-4 months Coding Level of Care Code Est Pt Level 5 (26162) Diagnoses Nonfamilial hypogammaglobulinemia D80.1 Pleural effusion J90 ERNIE (obstructive sleep apnea) G47.33 Moderate persistent asthma in adult without complication J45.40 Carcinoma of ovary, unspecified laterality C56.9 Laterality: unspecified laterality Peritoneal carcinomatosis C78.6 Pneumonitis J98.4 Asthma-COPD overlap syndrome J44.89 Pulmonary nodules R91.8 Time Spent (min) 60
[2024-05-28 09:42] VITALS: BP 128/80; PULSE 69; O2SAT 98; BMI 42.2
--- OUTSIDE RECORDS SUMMARY | 2024-05-28 10:22 | XMS_ITS | Clinical Summary ---
Author Organization [facility] Address [address] [place] [address] Phone Care Team Providers Care Head Start Coordinator Name Role Phone Greg Castle MD Primary Care Provider [phone] Allergies Active Allergy Reactions Criticality Noted Date Comments Immune Globulin Other (see comments) High 03/28/2023 PARALYSIS of legs Cephalexin Anaphylaxis High 03/28/2023 Medications acetaminophen (TYLENOL) 325 MG tablet Take 1,300 mg by mouth 1 (one) time each day Active atenolol (TENORMIN) 25 MG tablet Take 25 mg by mouth 1 (one) time each day Active celecoxib (CeleBREX) 200 MG capsule Take 200 mg by mouth 1 (one) time each day Active hydroCHLOROthia zide 25 MG tablet Take 25 mg by mouth 1 (one) time each day Active prochlorperazin e (COMPAZINE) 10 MG tablet 3 Active ezetimibe (ZETIA) 10 MG tablet Take 10 mg by mouth 1 (one) time each day 3 Active Senna-Time 8.6 MG tablet TAKE 2 TABLETS BY MOUTH DAILY AT BEDTIME NEEDED FOR CONSTIPATION 3 Active lidocaine-prilo blade (EMLA) cream APPLY TO PORTACAT SITE 30-60MIN PRIOR TO EACH CHEMOTHERAPY SESSION 3 Active GaviLAX 17 GM/SCOOP powder TAKE 17 GRAMS BY MOUTH EVERY DAY. DISSOLVE IN 240 ML WATER OR JUICE BEFORE TAKING 3 Active immune globulin, human, (Gamunex-C) infusion 03/15/201 6 Active co-enzyme Q-10 30 MG capsule Take 30 mg by mouth 1 (one) time each day Active saccharomyces boulardii (FLORASTOR) 250 MG capsule Take 250 mg by mouth in the morning and 250 mg in the evening. Active calcitriol (ROCALTROL) 0.25 MCG capsule Take 0.25 mcg by mouth 1 (one) time each day Active Active Problems Problem Noted Date Diagnosed Date Ovarian cancer 04/13/2023 Gestational diabetes mellitus 04/13/2023 Anemia 04/13/2023 Asthma 03/28/2023 Back pain 03/28/2023 Chronic obstructive pulmonary disease 03/28/2023 Hiatal hernia 03/28/2023 Hypercholesterolemia 03/28/2023 Hypertension 03/28/2023 Hypogammaglobulinemia 03/28/2023 Obese 03/28/2023 Osteoarthritis 03/28/2023 Carcinomatosis of peritoneal cavity 03/28/2023 Radial styloid tenosynovitis (de Quervain) 03/28 Trigger finger 03/28/2023 Vitamin D deficiency 03/28/2023 Tubular adenoma of colon 03/28/2023 Social History Tobacco Use Types Packs/Day Years Used Date Smoking Tobacco: Former Cigarettes Tobacco Cessation:Counseling Given: Not Answered Alcohol Use Standard Drinks/Week Comments Not Currently 0 (1 standard drink = 0.6 oz pur e alcohol) Comments Unknown Sex and Gender Information Value Date Recorded Sex Assigned at Not on file Legal Sex Female 12:48 PM EST Gender Identity Not on file Sexual Orientation Not on file Last Filed Vital Signs Vital Sign Reading Time Taken Comments Blood Pressure 114/62 04/13/2023 8:10 AM EST Pulse 65 04/13/2023 8:10 AM EST Temperature 35.8 ??C (96.4 ??F) 04/13/2023 8:10 AM ES T Respiratory Rate 16 04/13/2023 8:10 AM EST Oxygen Saturation 95% 04/13/2023 8:10 AM EST Inhaled Oxygen Concentration - - Weight 106 kg (233 lb) 04/13/2023 8:10 AM EST Height 162.6 cm (5' 4 ) 04/13/2023 8:10 AM EST Body Mass Index 39.99 04/13/2023 8:10 AM EST Plan of Treatment Health Maintenance Due Date Last Done Comments Breast Cancer Screening 1950 Pneumococcal Vaccine: 65+ Ye ars (1 of 2 - PCV) 1957 Colorectal Cancer Screening: Annual FOBT 2000 Colorectal Cancer Screening: Colonoscopy 2000 Colorectal Cancer Screening: Sigmoidoscopy 2000 Diabetes: Hemoglobin A1C 04/13/2023 Diabetes: Ophthalmology Exam 04/13/2023 Diabetes: Pedal Pulse Checked 04/13/2023 Diabetes: Sensory Foot Exam 04/13/2023 Diabetes: Visual Foot Exam 04/13/2023 Influenza Vaccine (#1) 2024 Hepatitis B Vaccine Aged Out No longe r eligible based on patient's age to complete this topic Insurance MEDICARE [facility] [place] Care Teams Head Start Coordinator Relationship Specialty Start Date End Date Greg Castle MD [address] [place] [address] PCP - General Internal Medicine 04/13/23
== END 2024-05-28 10:47 | disposition home or self-care (01) ==
PROVIDERS: PCP Internal Medicine; Visit Provider Hospitalist
DX: J45.40 Moderate persistent asthma, uncomplicated (principal); J90 Pleural effusion, not elsewhere classified; G47.33 Obstructive sleep apnea (adult) (pediatric); D80.1 Nonfamilial hypogammaglobulinemia; C56.9 Malignant neoplasm of unspecified ovary; C78.6 Secondary malignant neoplasm of retroperitoneum and peritoneum; J98.4 Other disorders of lung; J44.89 Other specified chronic obstructive pulmonary disease; R91.8 Other nonspecific abnormal finding of lung field
CPT/HCPCS: 99215

== ENCOUNTER → 2024-05-28 09:37 | Outpatient (BNVA) | payer MEDICARE, SELFPAY | PROVIDERS: PCP Internal Medicine; Visit Provider Hospitalist | DX: J44.89 Other specified chronic obstructive pulmonary disease (principal); J90 Pleural effusion, not elsewhere classified; J45.40 Moderate persistent asthma, uncomplicated; J98.4 Other disorders of lung; D80.1 Nonfamilial hypogammaglobulinemia; G47.33 Obstructive sleep apnea (adult) (pediatric); C56.9 Malignant neoplasm of unspecified ovary; C78.6 Secondary malignant neoplasm of retroperitoneum and peritoneum; R91.8 Other nonspecific abnormal finding of lung field; Z87.891 Personal history of nicotine dependence | CPT/HCPCS: 99212 ==

== ENCOUNTER 2024-07-10 09:59 | Outpatient (RCR) | payer MEDICARE, SELFPAY ==
--- NOTE | 2024-06-09 14:45 | MHC.OT.OEV ---
[address] [phone] F: [phone] Occupational Therapy Evaluation Patient Name: Kamille Palacios Diagnosis: (B)carpal tunnel, cubital tunnel Date of Onset: Date of Surgery: Attending Provider: Angel Guzman Prescribed Treatment: MD Follow Up Appointment: History of Current Condition: Patient is a 74 y/o right handed female with PMHx of but not limited to uterine CA (currently on chemo) who was referred to skilled OT for stiffness/ weakness of the hands with dx of (B) carpal tunnel. She had a nerve conduction study which indicated impaired median nerve. She stated she lives with and son. She has a daughter and son whom live outside the home. 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 She reported her PLOF as (I)ADLs, min (A) IADLs and utilizes a scooter for long distances. She reports a 4/10 pain during rest and 10/10 pain during that is sharp. She has numbness and tingling in her hands. She finds it difficult to make a fist, write, and aracelis. She sleeps in a recliner. She noted she has trigger finger of (B)middle fingers and had a (R)4th trigger finger release years ago. She enjoys going to the [employer], and [employer]. Significant Medical History: Chemotherapy-induced fatigue Hand weakness Pleural effusion 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 pain with right-sided sciatica Post-menopause Vitamin D deficiency Myalgia due to statin Moderate persistent asthma in adult without complication Tubular adenoma of colon Nonfamilial hypogammaglobulinemia Trigger finger De Quervain's disease (radial styloid tenosynovitis) Osteoarthritis of knee ERNIE (obstructive sleep apnea) Hiatal hernia Impaired fasting glucose Mixed dyslipidemia Hypertension COPD Precautions/Contraindications: ACTIVE CANCER; On supplemental O2 2L at night time Patient Goals: Hand Dominance: Right Observations: QuickDASH Score: 77.3 Prior Level of Function and Occupation Self Care, Employment, Leisure: Retired (I)ADLs, min (A)ADLs Has family support Going to [employer] shows, [employer] and aracelis. Living Situation, Family and/or Social Support: Family Current Level of Function and Occupation Self Care, Employment, Leisure: Retired Sleep: Wakes up due to pain Driving: Vision: Balance: Pain Assessment Pain Score: 10 Pain Scale Used: Numeric (0 - 10) Pain Location and Description: (B)hand 4/10 at rest 10/10 pain during movement sharp pain Aggravating Factors: Alleviating Factors: Gabapentin, Tylenol Skin and Soft Tissue Assessment Skin and Soft Tissue: Comments: Skin intact, edema present in fingers (B'ly) Nerve assessment Ulnar Nerve: Median Nerve: B/L Impaired Radial Nerve: Comments: Per Nerve conduction study. Sensory Assessment Temperature: Light Touch: Proprioception: Vibration: Comments: Edema Assessment Upper Extremity: Lower Extremity: Comments: Dexterity Assessment Dexterity: Comments: Special Tests Comments: AROM(PROM) Strength Cervical Cervical Flexion: Cervical Extension: Cervical Lateral Flexion: Cervical Rotation: Comments: Shoulder Flexion: Extension: Abduction: Internal Rotation: External Rotation: Comments: 3+/5 Flexion: Extension: Abduction: Internal Rotation: External Rotation: Comments: WFL Elbow Flexion: Extension: Pronation: Supination: Comments: WFL Flexion: Extension: Pronation: Supination: Comments: 3+/5 Wrist Flexion: (R) 95 (L) 75 Extension: (R) 60 (L) 60 Ulnar Deviation: (R) 25 (L) 15 Radial Deviation: (R) 15 (L) 15 Comments: Flexion: Extension: Ulnar Deviation: Radial Deviation: Comments: 3+/5 Thumb Thumb CMC Flexion: Thumb MCP Flexion: Thumb IP Flexion: Radial Abduction: Palmar Abduction: Mora (Kapandji 0-10): Comments: Digits Index MCP: (R)70 (L)52 PIP: (R)80 (L)75 DIP: (R)48 (L) 48 Long MCP: (R)60 (L)50 PIP: (R)78 (L)80 DIP: (R)40 (L)60 Ring MCP: (R)50 (L)54 PIP: (R)80 (L)85 DIP: (R)42 (L)42 Small MCP: (R)45 (L)45 PIP: (R)80 (L)72 DIP: (R)53 (L)44 Comments: Gross Grasp: (R)19lbs.(L)15lbs. Lateral Pinch: (R)9lbs. (L)7lbs. Two-Point Pinch: (R)4lbs. (L)5lbs. Three-Jaw Gibson: (R)3lbs. (L)N/A Comments: Patient Education Primary Language: Estonian Care Nurse Rn Required: No Current Knowledge: Understands information with skills for self-management Teaching Method: Demonstration Education Needs Identified on Evaluation: ADL's Disease Information Pain How did patient/family demonstrate learning? Patient demonstrates Barriers to Learning: None Readiness for Learning: Accepting Who was educated? Patient Comments: Plan of Care Assessment: Based on initial OT evaluation patient present with (B) pain, impaired ROM, impaired strength, and impaired performance during self care tasks. Quick DASH= 77.3% indicating patient perceived impairment during ADL performance. Due to the documented impairments patient's CLOF is mod (A) ADLs /IADLs. It is recommended that patient receive skilled OT intervention in order for her to achieve her PLOF of min (A) ADLS. Thank you for your referral. 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 Patient will increase (L) railway switch operator strength to 20lbs. LTG Duration: 4 weeks Estate Planner Goals: Patient will be (I) with HEP Patient will report 0/10 pain in (B)hands Patient will decrease Quick DASH score by 20% indicating overall improvement of the UEs Frequency and Duration: The patient will be seen 2x a week for 4 weeks Treatment Plan: Therapeutic Exercise Therapeutic Activity Home Exercise Program Splinting Patient Education Desensitization/Sensory Re-ed Edema Control ADL Training Ultrasound NMES Iontophoresis Paraffin Fluidotherapy MHP Cold Packs Joint Mobilization Soft Tissue Mobilization Kinesiotaping Other (see comments) Electronically Signed By: SAMMIE Araujo/Shawn, CLT Reviewed/agree with student documentation: Therapist: Please sign and return to therapist, Thank you for your referral.
--- NOTE | 2024-10-28 14:40 | MHC.OT.DC ---
[address] [phone] F: [phone] Occupational Therapy Discharge Note Patient Name: Kamille Pereznier Provider: Angel Guzman Diagnosis: (B)carpal tunnel, cubital tunnel Date of Surgery: Date of Evaluation: 06/09/24 Date of Discharge: Treatments to Date: 7 Cancellations to Date: No Shows to Date: Discharge Status: Improved Function Discharge Summary: Patient is d/c'd from skilled therapy as patient has achieved maximal potential in therapy. 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 Patient was a pleasure to worth with, thank you for your referral. Electronically Signed By: SAMMIE Araujo/Shawn, CLT Reviewed/agree with student documentation: Therapist: Please Sign and return to therapist, thank you for your referral.
== END 2024-10-28 14:40 | disposition home or self-care (01) ==
LOC: HO.OT 09:59
PROVIDERS: PCP Internal Medicine
DX: R29.898 Other symptoms and signs involving the musculoskeletal system (principal)
CPT/HCPCS: 97110; 97140; 97166; 97535

== ENCOUNTER 2024-07-15 15:02 | Outpatient (RCR) | payer MEDICARE, SELFPAY ==
[2024-07-15 15:03] VITALS: BP 125/58; PULSE 72
--- NOTE | 2024-07-15 16:08 | MHC.PT.EP ---
[facility] [place] Office [place] Office [place] Office [address] [phone] F: [phone] F: [phone] F: [phone] F: [phone] Physical Therapy Plan of Care Date of Evaluation: 07/15/24 Date of Surgery: NA Diagnosis: Benign paroxysmal vertigo Assessment: Kamille is a 74 year old female who is referred to PT for BPPV . She reports of having symptoms of vertigo for the last 4 months. She describes them as feeling lightheaded and passing out . Her symptoms come on spontaneously and lasts for a few seconds. She has some nausea which most likely is due to chemo meds. On PT examination she presented with intact saccades, smooth pursuit, visual tracking, negative DVA, negative VBI, mildly impaired static and dynamic balance. She was negative for BPPV in B william pikes and B roll test. She lives with her and is independent with self care activities but her does all IADLS due to her diagnosis of cancer and chemo. She does not present with any symptoms suggestive of vestibular dysfunction however has mild balance issues due to weakness in B LE, neuropathy and back pain. She stated she would like HEP for managing her symptoms at home. She therefore will not be returning to PT. Frequency and Duration: The patient will be seen Short Term Goals: Fly Finisher Goals: Treatment Plan: Modalities to reduce pain, spasms and effusion. Manual therapy to restore motion and function. Therapeutic exercise to improve strength and flexibility. Neuromuscular re-education for posture and balance. Therapeutic activities to return to functional activities of daily living. Electronically signed by: Fara Kessler, PT DPT Please sign and return to therapist. Thank you for your referral.
--- NOTE | 2024-09-09 10:28 | MHC.PT.DC ---
[facility] [place] Office [place] Office [place] Office [address] [phone] F: [phone] F: [phone] F: [phone] F: [phone] Physical Therapy Discharge Report Diagnosis: Benign paroxysmal vertigo Date of Surgery: NA Date of Evaluation: 07/15/24 Date of Discharge: 09/09/24 Treatments to Date: 1 Cancellations to Date: 0 No Shows to Date: 0 Discharge Status: Discharge Summary: Kamille did not present with any symptoms vestibular dysfunction in about 2 months. She is therefore being d/c from PT. Electronically signed by: Fara Kessler PT DPT Please sign and return to therapist. Thank you for your referral.
== END 2024-09-09 10:29 | disposition home or self-care (01) ==
LOC: HO.PT 15:02
PROVIDERS: PCP Internal Medicine; Visit Provider Internal Medicine
DX: H81.10 Benign paroxysmal vertigo, unspecified ear (principal)
CPT/HCPCS: 97112; 97162

== ENCOUNTER 2024-08-07 09:33 | Outpatient (AMB) | payer MEDICARE, SELFPAY ==
--- NOTE | 2024-08-07 09:41 | MHC.OFFVIS ---
Vital Signs 04 09:42 Height 5 ft 4 in Weight 228 lb 2.855 oz BMI 39.2 BP 114/62 Blood Pressure Location Lt brachial Position Sitting Pulse 65 Pulse Source Pulse Oximeter Pulse Oximetry (%) 96 Oxygen Delivery Method Room Air Intake Visit Reasons: Asthma Allergies cephalexin [Keflex] Allergy (Unknown, Verified 08/07/24 09:45) anaphylaxis glycine [From GAMMAGARD S/D] Adverse Reaction (Unknown, Verified 08/07/24 09:45) WEAKNESS IgA less than or equal to 50 mcg/mL [From GAMMAGARD S/D] Adverse Reaction (Unknown, Verified 08/07/24 09:45) WEAKNESS immune globulin,gamma (IgG) human [From GAMMAGARD S/D] Adverse Reaction (Unknown, Verified 08/07/24 09:45) WEAKNESS Penicillins [PENICILLINS] Adverse Reaction (Unknown, Verified 08/07/24 09:45) DIARRHEA atorvastatin Adverse Reaction (Verified 08/07/24 09:45) muscle ache pravastatin Adverse Reaction (Verified 08/07/24 09:45) Muscle pain HPI Comments Details: The patient is a 74-year-old woman known asthma in addition to obstructive sleep apnea and hypogammaglobulinemia. She responded very well to the IgG infusions. Initially started with Gamunex C and was able to taper dose to 20 mg every 3 weeks. At some point due to a shortness of the medications she was placed on Gammagard and had series adverse reactions. She was subsequently taken off again regarding back to the gamma next see which is tolerating very well. In the meantime the patient has been having issues tolerate her CPAP. The CPAP therapy sometimes difficult because she feels significant nasal congestion and nasal obstruction. She is trying to lose weight. When she is able to lose about 40-50 lb or so we can consider repeating the sleep study to see if she has not requiring CPAP any longer. Her asthma appears to be stable at this time. 07/06/2020 the patient is here for pulmonary follow-up visit. Since we last spoke back in April she was diagnosed with COVID-19. She did require a brief ICU hospitalization. Subsequently discharged before. She actually did very well. He is actually doing very well. She recently did get vaccinated. She continues to get her fusions. Sometimes he has a hard time with her IV access. However she has not missed a dose because of the IV access. She continues to lose weight. She has been motivated to continue to do so. She is trying to exercise more. She has not had to use her rescue inhaler. Her actually . She will call the office if she needs 1. In the meantime the patient had is sleeping well. Denies any significant daytime drowsiness. I did offer her at some point to give her sleep study to make sure that he does not have any untreated sleep apnea that which should be worried about. 01/03/2022 the patient is here for a pulmonary follow-up visit. Overall the patient has been doing well from a respiratory status. Denies any recent illness. She is going on a cruise soon she will do her best to try to keep from getting sick. She continues to receive the augmentation therapy with the IVIG. Currently she is on therapy every 3 weeks because is hard for her to tolerate a higher dose. Will go ahead and check her IgG trough with the hope that her levels are well then we can extend the therapy a little longer. Will decide depending on her levels. The patient has not required her short-acting beta agonist recently. She did require couple weeks ago but otherwise she is doing well. No additional therapies warranted. 11/26/2023 the patient is here for pulmonary follow-up visit. The patient is frustrated with IgG levels. Apparently the patient was started on chemotherapy back in April. At that point in view of her significant aggressive chemotherapy regimen the plan was just to follow her IgG levels while she was getting chemotherapy. At the point that her levels drop below normal at that point will then encourage her to restart her IVIG therapy. Unfortunately, 1 getting a blood work from [facility] and the levels it throughout below 600. She also developed COVID. Now she has recovered from that. We did talk to the infusion center. We are able to get her in to start the IVIG today. She will continue it every 3 weeks. She continue also getting blood work every 3 weeks. Once levels normalize she can consider stopping but at this point which is continue to make simple. Unfortunately she did not respond to the 1st came or 2nd chemo course. She is on her 3rd 1 which I believe is a trial. She unfortunately also had worsening shortness of breath. She had significant amount of ascites. She had a significant amount of fluid removed. Ultimately she also required a thoracentesis at [facility] for likely extravasation through her diaphragm. She does have still some shortness of breath and will have her get an x-ray today as well to see if any pleural effusion is rebuilding. 02/25/2024 the patient is here for pulmonary follow-up visit. Overall she is doing okay. The patient did have COVID since we last spoke back in November. She tolerated well without any significant symptoms. The patient did have a chest x-ray during the last visit and had a trace amount of pleural effusion. She is scheduled to undergo a CT scan in the coming weeks at [facility]. After review to see if there is any recurrent effusions. She has been getting the IgG therapy this has been effective. Once she gets her IgG in a few weeks she is going to get her flu shot and subsequently after that she is going to get her COVID shot. She has been sleeping on the recliner. She has been waking up tired. She was started on Ritalin and seems to be helping. Will go ahead and request an overnight oximetry while sleeping on room air to make sure she is getting adequate oxygenation at this time. 05/28/2024 the patient is here for a pulmonary follow-up visit. Overall the patient has been doing okay. She does feel fatigued. She was recently placed on Ritalin for chronic fatigue. Her dose was increased. She is feeling a little better. In the meantime her [place] score is elevated 11/24. She did have a overnight oximetry which actually demonstrate that she desaturated down to the 70s and she spent more than now were below 88%. The patient does have history obstructive airway disease so therefore will start her on oxygen 2 L at nighttime. She will continue with current respiratory therapy. The patient also continues to receive the IVIG infusions for her hypogammaglobulinemia. She did have a CT scan of the chest in April done at [facility]. It was personally by me and also reviewed her CT scan that she had an February. Both demonstrated areas of ground-glass opacities. But, her near CT scan does have also ground-glass nodular densities. Indeed this may be related to her chemotherapy although need to follow. She is scheduled to undergo a repeat CT scan in the coming months. 08/07/2024 the patient is here for pulmonary follow-up visit. She continues on her therapy for her or cancer. She did not tolerate the initial chemotherapy. Now she is on targeted therapy. Appears to be developing some pneumonitis due to the targeted therapy. Although, the pneumonitis is minimal and the patient is pretty normal without affecting her gas exchange. Will go ahead and start her inhaled corticosteroid to help her minimize the inflammation of the airways. But overall the patient is doing well and seems to be tolerating the targeted therapy reasonably well. She continues on the IVIG. She will get IgG levels checked the next time. I did review her CT scan of the chest demonstrating the pulmonary nodules in the ground-glass opacities and all appears to be fairly stable. She will continue with the current therapy and we will follow-up with her in 6 months. If she has any issues prior to that she will call. If she has any difficulties with the inhaler she will let us know. Also to note the patient did have an overnight oximetry and she did desaturate down to about 69% she spent most of the night below 88%. Therefore, she is using oxygen now 2 L with good response. [facility] Medical History (Updated 05/28/24 @ 19:11 by Artur Pierre MD) Pulmonary nodules Asthma-COPD overlap syndrome Pneumonitis Chemotherapy-induced fatigue Hand weakness Pleural effusion 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 pain with right-sided sciatica Post-menopause Vitamin D deficiency Myalgia due to statin Moderate persistent asthma in adult without complication Tubular adenoma of colon Nonfamilial hypogammaglobulinemia Trigger finger De Quervain's disease (radial styloid tenosynovitis) Osteoarthritis of knee ERNIE (obstructive sleep apnea) Hiatal hernia Impaired fasting glucose Mixed dyslipidemia Hypertension COPD (chronic obstructive pulmonary disease) Surgical History History of colonoscopy with polypectomy History of bilateral knee replacement Hx of tonsillectomy Hx of cholecystectomy History of bowel resection Hx of appendectomy Family History Mother HTN (hypertension) Uterine cancer Father Colon cancer Sister CVA (cerebral vascular accident) Breast cancer, Onset Age: 50 Social History Household Members: Spouse Household Members Other:: and son Housing: House Do you presently have visiting nurse or other home services: No Alcohol intake: never Comment: no used for pain Patient Tobacco Use Status: Former Tobacco user Tobacco use type: Cigarette Years Smoked: 15 Years e-Cigarette/Vaping Use: Never Used Second Hand Smoke Exposure: No service: No Current occupational status: retired Cognitive needs: No Hearing needs: No Vision needs: Yes Female Reproductive History Menstrual Age of Menarche: 14 Review of Systems Const Denies body aches, Denies headache(s) and Denies poor appetite ENT Denies dysphagia, Denies dizziness, Denies headache(s), Denies nasal congestion and Denies nasal discharge Card Denies chest pain, Denies dyspnea and Reports dyspnea on exertion Resp Denies cough, Denies dyspnea and Reports dyspnea on exertion GI Reports as per HPI, Denies dysphagia and Denies heartburn Musc Denies back pain, Denies arthralgias, Denies muscle cramps, Reports muscle weakness and Reports tingling Neuro Denies dizziness, Denies headache(s), Denies focal weakness and Reports tingling Wayne/Lymph Reports no additional complaints Physical Exam Vital Signs: Last Vital Signs Pulse 65 08/07/24 09:42 BP 114/62 08/07/24 09:42 Pulse Ox 96 08/07/24 09:42 Oxygen Delivery Method Room Air 08/07/24 09:42 BMI result Body Mass Index 39.2 Const General: alert Neck Neck: Yes normal visual inspection, Yes full ROM and Yes no lymphadenopathy Chest Chest palpation & inspection: normal inspection of the chest Resp Auscultation: no wheezes and diminished lung sounds Cardio Rate: regular rate Rhythm: regular rhythm Heart sounds: S1 normal heart sound present and S2 normal heart sound present GI Palpation (GI): Soft to palpation and nontender Auscultation: normal bowel sounds General: Yes no CVA tenderness Back/Spine/Pelvis Back: no CVA tenderness Skin General skin exam: rashes and/or lesions noted Extrem Right lower extremity: foot (fluid blister was covered C/D/I) Assessment & Plan Assessment & Plan (1) Nonfamilial hypogammaglobulinemia: Code(s): D80.1 - Nonfamilial hypogammaglobulinemia Category: Medical (2) ERNIE (obstructive sleep apnea): Comment: Intolerant of CPAP Code(s): G47.33 - Obstructive sleep apnea (adult) (pediatric) Category: Medical (3) Moderate persistent asthma in adult without complication: Code(s): J45.40 - Moderate persistent asthma, uncomplicated Category: Medical (4) Ovarian carcinoma: Code(s): C56.9 - Malignant neoplasm of unspecified ovary Category: Medical Qualifiers: Laterality: unspecified laterality Qualified Code(s): C56.9 - Malignant neoplasm of unspecified ovary (5) Peritoneal carcinomatosis: Code(s): C78.6 - Secondary malignant neoplasm of retroperitoneum and peritoneum Category: Medical (6) Pneumonitis: Code(s): J98.4 - Other disorders of lung Category: Medical (7) Asthma-COPD overlap syndrome: Code(s): J44.89 - Other specified chronic obstructive pulmonary disease Category: Medical (8) Pulmonary nodules: Code(s): R91.8 - Other nonspecific abnormal finding of lung field Category: Medical Plan continue IVIG, check through CT chest/abd [facility] serial imaging Start Arnuity daily MELANI as needed continue chemo overnight oximetry on RA-needs start Supplemetal oxygen while sleepinl/min positional sleep therapy, should sleep elevated F/U 6 months Orders: Orders Immunoglobulin G Subclasses Today J98.4 - Other disorders of lung Erythrocyte Sedimentation Rate Today J98.4 - Other disorders of lung Medications: New fluticasone furoate 100 mcg/actuation (Arnuity Ellipta) 1 inh inhalation DAILY 30 ea 11RF 30 days Coding Level of Care Code Est Pt Level 4 (92518) Complex EM visit Add On G2211 Diagnoses Nonfamilial hypogammaglobulinemia D80.1 ERNIE (obstructive sleep apnea) G47.33 Moderate persistent asthma in adult without complication J45.40 Carcinoma of ovary, unspecified laterality C56.9 Laterality: unspecified laterality Peritoneal carcinomatosis C78.6 Pneumonitis J98.4 Asthma-COPD overlap syndrome J44.89 Pulmonary nodules R91.8 Time Spent (min) 17
[2024-08-07 09:42] VITALS: BP 114/62; PULSE 65; O2SAT 96; BMI 39.2
--- OUTSIDE RECORDS SUMMARY | 2024-08-07 10:00 | XMS_ITS | Clinical Summary ---
Author Organization [facility] Address [address] [place] [address] Phone Care Team Providers Care Regulatory Affairs Associate Name Role Phone Greg Castle MD Primary Care Provider [phone] Allergies Active Allergy Reactions Criticality Noted Date [...] Diabetes: Visual Foot Exam 04/13/2023 Influenza Vaccine (Season Ended) 2025 Hepatitis B Vaccine Aged Out No longe r eligible based on patient's age to complete this topic Insurance MEDICARE [facility] [place] Care Teams Regulatory Affairs Associate Relationship Specialty Start Date End Date Greg Castle MD [address] [place] [address] PCP - General Internal Medicine 04/13/23
== END 2024-08-07 10:14 | disposition home or self-care (01) ==
LOC: HO.HPS 09:33
PROVIDERS: PCP Internal Medicine; Visit Provider Hospitalist
DX: D80.1 Nonfamilial hypogammaglobulinemia (principal); G47.33 Obstructive sleep apnea (adult) (pediatric); J45.40 Moderate persistent asthma, uncomplicated; C56.9 Malignant neoplasm of unspecified ovary; C78.6 Secondary malignant neoplasm of retroperitoneum and peritoneum; J98.4 Other disorders of lung; J44.89 Other specified chronic obstructive pulmonary disease; R91.8 Other nonspecific abnormal finding of lung field
CPT/HCPCS: 99214; G2211

== ENCOUNTER → 2024-08-07 09:33 | Outpatient (BNVA) | payer MEDICARE, SELFPAY | PROVIDERS: PCP Internal Medicine; Visit Provider Hospitalist | DX: J44.89 Other specified chronic obstructive pulmonary disease (principal); J45.40 Moderate persistent asthma, uncomplicated; J98.4 Other disorders of lung; D80.1 Nonfamilial hypogammaglobulinemia; G47.33 Obstructive sleep apnea (adult) (pediatric); C56.9 Malignant neoplasm of unspecified ovary; C78.6 Secondary malignant neoplasm of retroperitoneum and peritoneum; R91.8 Other nonspecific abnormal finding of lung field; Z99.81 Dependence on supplemental oxygen; Z87.891 Personal history of nicotine dependence | CPT/HCPCS: 99212 ==

== ENCOUNTER 2025-02-06 10:27 | Outpatient (AMB) | payer MEDICARE, SELFPAY ==
[2025-02-06 10:28] VITALS: BP 100/50; PULSE 85; O2SAT 95; BMI 41.4
--- NOTE | 2025-02-06 10:28 | MHC.OFFVIS ---
Vital Signs 02/06/25 10:28 Height 5 ft 4 in Weight 241 lb 6.499 oz BMI 41.4 BP 100/50 L Blood Pressure Location Lt brachial Position Sitting Pulse 85 Pulse Source Pulse Oximeter Pulse Oximetry (%) 95 Oxygen Delivery Method Room Air Intake Visit Reasons: Asthma Direct Response Consultant Required: No Accompanied by: Spouse Allergies cephalexin (Keflex) Allergy (Unknown, Verified 02/06/25 10:34) anaphylaxis glycine (From GAMMAGARD S/D) Adverse Reaction (Unknown, Verified 02/06/25 10:34) WEAKNESS IgA less than or equal to 50 mcg/mL (From GAMMAGARD S/D) Adverse Reaction (Unknown, Verified 02/06/25 10:34) WEAKNESS immune globulin,gamma (IgG) human (From GAMMAGARD S/D) Adverse Reaction (Unknown, Verified 02/06/25 10:34) WEAKNESS Penicillins (PENICILLINS) Adverse Reaction (Unknown, Verified 02/06/25 10:34) DIARRHEA atorvastatin Adverse Reaction (Verified 02/06/25 10:34) muscle ache pravastatin Adverse Reaction (Verified 02/06/25 10:34) Muscle pain HPI Comments Details: The patient is a 74-year-old woman known asthma in addition to obstructive sleep apnea and hypogammaglobulinemia. She responded very well to the IgG infusions. Initially started with Gamunex C and was able to taper dose to 20 mg every 3 weeks. At some point due to a shortness of the medications she was placed on Gammagard and had series adverse reactions. She was subsequently taken off again regarding back to the gamma next see which is tolerating very well. In the meantime the patient has been having issues tolerate her CPAP. The CPAP therapy sometimes difficult because she feels significant nasal congestion and nasal obstruction. She is trying to lose weight. When she is able to lose about 40-50 lb or so we can consider repeating the sleep study to see if she has not requiring CPAP any longer. Her asthma appears to be stable at this time. 07/06/2020 the patient is here for pulmonary follow-up visit. Since we last spoke back in April she was diagnosed with COVID-19. She did require a brief ICU hospitalization. Subsequently discharged before. She actually did very well. He is actually doing very well. She recently did get vaccinated. She continues to get her fusions. Sometimes he has a hard time with her IV access. However she has not missed a dose because of the IV access. She continues to lose weight. She has been motivated to continue to do so. She is trying to exercise more. She has not had to use her rescue inhaler. Her actually . She will call the office if she needs 1. In the meantime the patient had is sleeping well. Denies any significant daytime drowsiness. I did offer her at some point to give her sleep study to make sure that he does not have any untreated sleep apnea that which should be worried about. 01/03/2022 the patient is here for a pulmonary follow-up visit. Overall the patient has been doing well from a respiratory status. Denies any recent illness. She is going on a cruise soon she will do her best to try to keep from getting sick. She continues to receive the augmentation therapy with the IVIG. Currently she is on therapy every 3 weeks because is hard for her to tolerate a higher dose. Will go ahead and check her IgG trough with the hope that her levels are well then we can extend the therapy a little longer. Will decide depending on her levels. The patient has not required her short-acting beta agonist recently. She did require couple weeks ago but otherwise she is doing well. No additional therapies warranted. 11/26/2023 the patient is here for pulmonary follow-up visit. The patient is frustrated with IgG levels. Apparently the patient was started on chemotherapy back in April. At that point in view of her significant aggressive chemotherapy regimen the plan was just to follow her IgG levels while she was getting chemotherapy. At the point that her levels drop below normal at that point will then encourage her to restart her IVIG therapy. Unfortunately, 1 getting a blood work from [facility] and the levels it throughout below 600. She also developed COVID. Now she has recovered from that. We did talk to the infusion center. We are able to get her in to start the IVIG today. She will continue it every 3 weeks. She continue also getting blood work every 3 weeks. Once levels normalize she can consider stopping but at this point which is continue to make simple. Unfortunately she did not respond to the 1st came or 2nd chemo course. She is on her 3rd 1 which I believe is a trial. She unfortunately also had worsening shortness of breath. She had significant amount of ascites. She had a significant amount of fluid removed. Ultimately she also required a thoracentesis at [facility] for likely extravasation through her diaphragm. She does have still some shortness of breath and will have her get an x-ray today as well to see if any pleural effusion is rebuilding. 02/25/2024 the patient is here for pulmonary follow-up visit. Overall she is doing okay. The patient did have COVID since we last spoke back in November. She tolerated well without any significant symptoms. The patient did have a chest x-ray during the last visit and had a trace amount of pleural effusion. She is scheduled to undergo a CT scan in the coming weeks at [facility]. After review to see if there is any recurrent effusions. She has been getting the IgG therapy this has been effective. Once she gets her IgG in a few weeks she is going to get her flu shot and subsequently after that she is going to get her COVID shot. She has been sleeping on the recliner. She has been waking up tired. She was started on Ritalin and seems to be helping. Will go ahead and request an overnight oximetry while sleeping on room air to make sure she is getting adequate oxygenation at this time. 05/28/2024 the patient is here for a pulmonary follow-up visit. Overall the patient has been doing okay. She does feel fatigued. She was recently placed on Ritalin for chronic fatigue. Her dose was increased. She is feeling a little better. In the meantime her [place] score is elevated 24. She did have a overnight oximetry which actually demonstrate that she desaturated down to the 70s and she spent more than now were below 88%. The patient does have history obstructive airway disease so therefore will start her on oxygen 2 L at nighttime. She will continue with current respiratory therapy. The patient also continues to receive the IVIG infusions for her hypogammaglobulinemia. She did have a CT scan of the chest in April done at [facility]. It was personally by me and also reviewed her CT scan that she had an February. Both demonstrated areas of ground-glass opacities. But, her near CT scan does have also ground-glass nodular densities. Indeed this may be related to her chemotherapy although need to follow. She is scheduled to undergo a repeat CT scan in the coming months. 08/07/2024 the patient is here for pulmonary follow-up visit. She continues on her therapy for her or cancer. She did not tolerate the initial chemotherapy. Now she is on targeted therapy. Appears to be developing some pneumonitis due to the targeted therapy. Although, the pneumonitis is minimal and the patient is pretty normal without affecting her gas exchange. Will go ahead and start her inhaled corticosteroid to help her minimize the inflammation of the airways. But overall the patient is doing well and seems to be tolerating the targeted therapy reasonably well. She continues on the IVIG. She will get IgG levels checked the next time. I did review her CT scan of the chest demonstrating the pulmonary nodules in the ground-glass opacities and all appears to be fairly stable. She will continue with the current therapy and we will follow-up with her in 6 months. If she has any issues prior to that she will call. If she has any difficulties with the inhaler she will let us know. Also to note the patient did have an overnight oximetry and she did desaturate down to about 69% she spent most of the night below 88%. Therefore, she is using oxygen now 2 L with good response. 02/06/2025 the patient is here for pulmonary follow-up visit. Overall the patient has been doing fair. She did recently have a CT scan of the chest back in August demonstrating some new pulmonary nodules which was ground-glass in nature. She was referred to Interventional Pulmonary and underwent a transbronchial biopsies in the right middle lobe and right lower lobe. Biopsies were consistent with reactive inflammation and some scarring. No evidence of any cancer or infection based on the tissue microbiology. She was subsequently had a repeat CT scan in November 2024 which she will also reviewed demonstrating interval improvement of the nodular density still having some interstitial changes from reticular changes right more than left the patient also underwent a PET scan demonstrating 10 FDG activity in the omentum in the area where she has the underlying cancer. She just started a recent new regimen of chemotherapy. Going to have to spell that will not have FAM trantuzumab, which is known to cause some degree of interstitial lung disease and pneumonitis in few of the patient has. Therefore we have to monitor closely. Will have her get spirometry today and also she is having dyspnea on exertion [id number] severity even with minimal activity. She does get better with rest. The patient will go ahead and have a 6 minute walk test today to assess her oxygen needs. In the meantime the patient will continue with the IV infusions. They have been affecting beneficial on a monthly basis. The next dose will do trough to check her IgG levels. [facility] Medical History (Updated 02/06/25 @ 15:42 by Artur Pierre MD) Dyspnea History of adenomatous polyp of colon Pulmonary nodules Asthma-COPD overlap syndrome Pneumonitis Chemotherapy-induced fatigue Hand weakness Pleural effusion 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 pain with right-sided sciatica Post-menopause Vitamin D deficiency Myalgia due to statin Moderate persistent asthma in adult without complication Tubular adenoma of colon Nonfamilial hypogammaglobulinemia Trigger finger De Quervain's disease (radial styloid tenosynovitis) Osteoarthritis of knee ERNIE (obstructive sleep apnea) Hiatal hernia Impaired fasting glucose Mixed dyslipidemia Hypertension COPD (chronic obstructive pulmonary disease) Surgical History History of colonoscopy with polypectomy History of bilateral knee replacement Hx of tonsillectomy Hx of cholecystectomy History of bowel resection Hx of appendectomy Family History Mother HTN (hypertension) Uterine cancer Father Colon cancer Sister CVA (cerebral vascular accident) Breast cancer, Onset Age: 50 Social History Household Members: Spouse Household Members Other:: and son Housing: House Do you presently have visiting nurse or other home services: No Alcohol intake: never Comment: no used for pain Patient Tobacco Use Status: Former Tobacco user Tobacco use type: Cigarette Years Smoked: 15 Years e-Cigarette/Vaping Use: Never Used Second Hand Smoke Exposure: No service: No Current occupational status: retired Cognitive needs: No Hearing needs: No Vision needs: Yes Female Reproductive History Menstrual Age of Menarche: 14 Review of Systems Const Denies body aches, Denies headache(s) and Denies poor appetite ENT Denies dysphagia, Denies dizziness, Denies headache(s), Denies nasal congestion and Denies nasal discharge Card Denies chest pain, Denies dyspnea and Reports dyspnea on exertion Resp Denies cough, Denies dyspnea and Reports dyspnea on exertion GI Reports as per HPI, Denies dysphagia and Denies heartburn Musc Denies back pain, Denies arthralgias, Denies muscle cramps, Reports muscle weakness and Reports tingling Neuro Denies dizziness, Denies headache(s), Denies focal weakness and Reports tingling Wayne/Lymph Reports no additional complaints Physical Exam Vital Signs: Last Vital Signs Pulse 85 02/06/25 10:28 BP 100/50 L 02/06/25 10:28 Pulse Ox 95 02/06/25 10:28 Oxygen Delivery Method Room Air 02/06/25 10:28 BMI result Body Mass Index 41.4 Const General: alert Neck Neck: Yes normal visual inspection, Yes full ROM and Yes no lymphadenopathy Chest Chest palpation & inspection: normal inspection of the chest Resp Auscultation: no wheezes and diminished lung sounds Cardio Rate: regular rate Rhythm: regular rhythm Heart sounds: S1 normal heart sound present and S2 normal heart sound present GI Palpation (GI): Soft to palpation and nontender Auscultation: normal bowel sounds General: Yes no CVA tenderness Back/Spine/Pelvis Back: no CVA tenderness Skin General skin exam: rashes and/or lesions noted Extrem Right lower extremity: foot (fluid blister was covered C/D/I) Office Procedures 6 Minute Walk Time:: 11:10 SPO2 % at rest: 95 Pulse at rest: 73 SPO2 % during excercise: 93 Pulse during excercise: 138 SPO2 % after excercise: 96 Pulse after excercise: 105 Distance in yards walked: 150 Wiley Score: 5 Performance Observations:: Kamille walked on level ground at a steady pace, she walked on room air for the entire walk. She maintained her SPO2 93-96% with no O2 needed. Her HR increased to 138 bpm after 4 minutes of ambulation and recovered to 105 bpm [place]. [id number] - 6 Minute Walk Spirometry Testing Spirometry Comments: Spirometry done in the office, Dr. Pierre has the results results scanned to her chart. 34453- Spirometry Assessment & Plan Assessment & Plan (1) Nonfamilial hypogammaglobulinemia: Code(s): D80.1 - Nonfamilial hypogammaglobulinemia Category: Medical (2) ERNIE (obstructive sleep apnea): Comment: Intolerant of CPAP Code(s): G47.33 - Obstructive sleep apnea (adult) (pediatric) Category: Medical (3) Moderate persistent asthma in adult without complication: Code(s): J45.40 - Moderate persistent asthma, uncomplicated Category: Medical (4) Ovarian carcinoma: Code(s): C56.9 - Malignant neoplasm of unspecified ovary Category: Medical Qualifiers: Laterality: unspecified laterality Qualified Code(s): C56.9 - Malignant neoplasm of unspecified ovary (5) Peritoneal carcinomatosis: Code(s): C78.6 - Secondary malignant neoplasm of retroperitoneum and peritoneum Category: Medical (6) Asthma-COPD overlap syndrome: Code(s): J44.89 - Other specified chronic obstructive pulmonary disease Category: Medical (7) Pulmonary nodules: Code(s): R91.8 - Other nonspecific abnormal finding of lung field Category: Medical (8) Dyspnea: Code(s): R06.00 - Dyspnea, unspecified Category: Medical Plan continue IVIG, check through CT chest/abd [facility] serial imaging Arnuity daily MELANI as needed continue chemo Supplemetal oxygen while sleepinl/min positional sleep therapy, should sleep elevated Bloodwork and EKG Spirometry with mild restriction F/U 6 months Orders: Orders AMB Spirometry Testing 02/06/25 J44.89 - Other specified chronic obstructive pulmonary disease Complete Blood Count Auto Diff 02/06/25 D80.1 - Nonfamilial hypogammaglobulinemia, R06.00 - Dyspnea, unspecified Troponin-I High Sensitivity 02/07/25 D80.1 - Nonfamilial hypogammaglobulinemia, R06.00 - Dyspnea, unspecified AMB 6 minute walk 02/06/25 J44.89 - Other specified chronic obstructive pulmonary disease Basic Metabolic Panel 02/07/25 D80.1 - Nonfamilial hypogammaglobulinemia, R06.00 - Dyspnea, unspecified Immunoglobulin G Subclasses 02/07/25 D80.1 - Nonfamilial hypogammaglobulinemia, R06.00 - Dyspnea, unspecified ECG 12 lead EKG 02/06/25 D80.1 - Nonfamilial hypogammaglobulinemia, J44.9 - Chronic obstructive pulmonary disease, unspecified, R06.00 - Dyspnea, unspecified Coding Level of Care Code Est Pt Level 4 (76609) Complex EM visit Add On G2211 Diagnoses Nonfamilial hypogammaglobulinemia D80.1 ERNIE (obstructive sleep apnea) G47.33 Moderate persistent asthma in adult without complication J45.40 Carcinoma of ovary, unspecified laterality C56.9 Laterality: unspecified laterality Peritoneal carcinomatosis C78.6 Asthma-COPD overlap syndrome J44.89 Pulmonary nodules R91.8 Dyspnea R06.00 CPT Codes Coding ([id number]) Spirometry - CPT: 66421- Spirometry ([id number]) Time Spent (min) 18
--- OUTSIDE RECORDS SUMMARY | 2025-02-06 11:20 | XMS_ITS | Encounter Summary ---
Author Organization [facility] Address [address] [facility] [address] [place] [id number] Phone Care Team Providers Care Anthropology Department Chair Name Role Phone Stephanie Castle MD Primary Care Provider Stephanie Thibodeaux MD Unavailable [phone] Encounter Details Date Type Department Care Team (Late st Contact Info) Description 04/26/2023 Ancillary Orders Outside Imaging Alysia Elizabeth MD [address] [place] [id number] [email or web address] Social History Tobacco Use Types Packs/Day Years Used Date Smoking Tobacco: Former Cigarettes Q uit: 1986 Smokeless Tobacco: Never Child or Family Care Answer Date Record ed Do you have problems with on e of the following making it difficult for you to work, study, or receive health care? No 04/26/2023 Education Answer Date Recorded Are you interested in more education? Not on keagan e 04/10/2023 Are you concerned about learning? Not on file 04/10/2023 No 04/10/2023 No 04/10/2023 Food Answer Date Recorded Within the past 6 months we worried whether our food would run out before we got money to buy more. Never True 04/26/2023 Within the past 6 months the food we bought just didn't last and we didn't have enough money to get more. Never True Residential Stability Answer Date Recor ded What is your housing situation today? I have brielle romero 04/26/2023 How many times have you move d in the past 12 months? Zero (I did not move) 04/26/2023 Paying for Meds Answer Date Recorded Do you have trouble paying for medicines? No 04/26/2023 Paying Utility Bills Answer Date Record ed Do you have trouble paying your heating or elect ricity bill? No 04/26/2023 Transportation Answer Date Recorded Has the lack of transportati on kept you from medical appointments or from getting medications? No 04/26/2023 Digital Access Answer Date Recorded No 04/10/2023 No 04/10/2023 Reliable internet access at home? Not on file 04/10/2023 Device with a working camera? Not on file Comments Unknown Sex and Gender Information Value Date Recorded Sex Assigned at Female 04/06/2023 11:57 AM EST Legal Sex Female 11:56 AM EST Gender Identity Female 04/06/2023 11:57 AM EST Sexual Orientation Straight 04/06/2023 11 :57 AM EST documented as of this encounter Plan of Treatment Not on file documented as of this encounter Results * US Abdomen Outside (No Interpretation) (03/15/2023 12:05 AM EST) Other Narrative GORDON - 04/26/2023 9:30 AM EST This study is for PACS storage only and not for interpretation. us Alysia Elizabeth MD IMG OUTSIDE IMAGING W/OUT INTERP RETATION Final Result Performing Organization Address City/State/[facility] Co de Phone Number [facility] documented in this encounter Visit Diagnoses Not on filedocumented in this encounter Care Teams Anthropology Department Chair Relationship Specialty Start Date End Date Stephanie Castle MD [address] [place] [address] PCP - General Internal Medicine 04/06/23 Stephanie Thibodeaux MD [facility] [address] 4B_OB/DISTRICT MEDICAL EXAMINER [place] [address] Referring Physician Obstetrics and Gynecology 04/06/23 documented as of this encounter Additional Source Comments The information contained in this document represents components of the legal health record. It is not the complete legal health record.[facility]
--- OUTSIDE RECORDS SUMMARY | 2025-02-06 11:20 | XMS_ITS | Clinical Summary ---
Author Organization [facility] Address [address] [place] [id number] Phone Care Team Providers Care [employer] Name Role Phone Stephanie Castle MD Primary Care Provider Stephanie Thibodeaux MD Unavailable [phone] Allergies Active Allergy Reactions Criticality Noted Date Comments Gammagard Other (See Comments) Medium 04/10/2023 Leg weakness and sedation Cephalexin Anaphylaxis High 04/10/2023 Medications atenolol (TENORMIN) 25 MG tablet Take 1 tablet by mouth every morning. 02/01/2023 Active celecoxib (CELEBREX) 200 MG capsule TAKE 1 CAPSULE BY MOUTH EVERY DAY NEEDED FOR PAIN 03/12/2023 Active ezetimibe (ZETIA) 10 mg tablet Take 1 tablet by mouth every morning. 02/06/2023 Active hydroCHLOROthia zide (HYDRODIURIL) 25 MG tablet TAKE 1 TABLET ORALLY DAILY FOR 90 DAYS 02/01/2023 Active prochlorperazin e (COMPAZINE) 10 MG tablet 04/09/2023 Active coenzyme Q10 100 mg capsule Take 100 mg by mouth daily. Active docusate sodium (COLACE) 50 MG capsule Take 50 mg by mouth daily. Active acetaminophen (TYLENOL) 325 mg tablet Take 650 mg by mouth every 6 (six) hours as needed for pain (specific location in comments). Active Family History Medical History Relation Comments Skin cancer Brother Colon cancer Father Cervical cancer Mother Breast cancer Sister Relation Status Comments Brother Father Mother Sister Social History Tobacco Use Types Packs/Day Years Used Date Smoking Tobacco: Former Cigarettes Q uit: 1987 Smokeless Tobacco: Never Tobacco Cessation:Counseling Given: Not Answered Child or Family Care Answer Date Record [...] your housing situation today? I have brielle sing 04/26/2023 How many times have you move [...] Orientation Straight 04/06/2023 11 :57 AM EST Last Filed Vital Signs Vital Sign Reading Time Taken Comments Blood Pressure 130/62 04/26/2023 9:38 AM EST Pulse 70 04/26/2023 9:38 AM EST Temperature 36.2 C (97.2 F) 04/26/2023 9:38 AM EST Respiratory Rate 16 04/26/2023 9:38 AM EST Oxygen Saturation 95% 04/26/2023 9:38 AM EST Inhaled Oxygen Concentration - - Weight - - Height - - Body Mass Index - - Plan of Treatment Health Maintenance Due Date Last Done Comments Adult Td,Tdap Booster 1951 POTASSIUM LEVEL 1951 DEPRESSION SCREENING 1963 SMOKING Hx and SMOKELESS TOBACCO SCREENING 1964 HEPATITIS C SCREENING 1969 MAMMOGRAM 1991 COLOGUARD 1996 COLONOSCOPY 1996 COLORECTAL CANCER SCREENING 1996 FIT TEST 1996 FOBT 1996 SIGMOIDOSCOPY 1996 VIRTUAL COLONOSCOPY 1996 ZOSTER VACCINES (1 of 2) 2001 OSTEOPOROSIS SCREENING INITIAL (ONE-TIME) 2016 LIPID PANEL 08/21/2021 08/21/2016 INFLUENZA VACCINE (#1) 2024 , 03/05/2022, 01/31/2021, Additional history exists COVID-19 VACCINE ( season) 2025 02/26/2023, 07/07/2022, 12/12/2021, Additional history exists RSV VACCINE (1 - 1-dose 75+ series) 2026 PNEUMOCOCCAL VACCINES (50+ years) Completed 05/18/2022, 01/28/2020 HEPATITIS A VACCINES Aged Out No long er eligible based on patient's age to complete this topic HIB VACCINES Aged Out No longer eligi ble based on patient's age to complete this topic MENINGOCOCCAL VACCINES (ACWY) Aged Out No longer eligible based on patient's age to complete this topic MENINGOCOCCAL VACCINES (B) Aged Out N o longer eligible based on patient's age to complete this topic Medical Devices Not on file Insurance MEDICARE PART A & B [email or web address] MEDEX SUPPLEMENT MEDICARE PART A & B [email or web address] MEDEX SUPPLEMENT MEDICARE PART A & B [email or web address] MEDEX SUPPLEMENT MEDICARE PART A & B [email or web address] MEDEX SUPPLEMENT MEDICARE PART A & B MEDEX SUPPLEMENT MEDICARE PART A & B [employer] MEDEX SUPPLEMENT Care Teams [employer] Relationship Specialty Start Date End Date Stephanie Castle MD [facility] [place] [address] PCP - General Internal Medicine 04/06/23 Stephanie Thibodeaux MD [address] [place] [address] 4B_OB/[place] [address] Referring Physician Obstetrics and Gynecology 04/06/23 Additional Source Comments The information contained in this document represents components of the legal health record. It is not the complete legal health record.[facility]
--- OUTSIDE RECORDS SUMMARY | 2025-02-06 11:20 | XMS_ITS | Encounter Summary ---
Author Organization [facility] Address [address] [facility] [address] [place] [address] Phone Care Team Providers Care Cycle Repairer Name Role Phone Stephanie Castle MD Primary Care Provider Stephanie Thibodeaux MD Unavailable [phone] Encounter Details Date Type Department Care Team (Late st Contact Info) Description 04/26/2023 Ancillary Orders Outside Imaging Alysia Elizabeth MD [address] [place] [address] [email or web address] Social History Tobacco Use Types Packs/Day Years [...] as of this encounter Results * US Pelvis Outside (No Interpretation) (03/15/2023 12:00 AM EST) Other Narrative GORDON - 04/26/2023 9:29 AM EST This study is for PACS storage only and not for interpretation. us Alysia Elizabeth MD IMG OUTSIDE IMAGING W/OUT INTERP RETATION Final Result Performing Organization Address City/State/[facility] Co de Phone Number [facility] documented in this encounter Visit Diagnoses Not on filedocumented in this encounter Care Teams Cycle Repairer Relationship Specialty Start Date End Date Stephanie Castle MD [address] [place] [address] PCP - General Internal Medicine 04/06/23 Stephanie Thibodeaux MD [facility] [address] 4B_OB/PHOTOGRAPHIC DOUBLE EULALIA [place]AMO [address] Referring Physician Obstetrics and Gynecology 04/06/23 documented as of this encounter Additional Source Comments The information contained in this document represents components of the legal health record. It is not the complete legal health record.[facility]
--- OUTSIDE RECORDS SUMMARY | 2025-02-06 11:20 | XMS_ITS | Encounter Summary ---
Author Organization [facility] Address [address] [facility] [address] [place] [address] Phone Care Team Providers Care Noc Technician Name Role Phone Stephanie Castle MD Primary Care Provider Stephanie Thibodeaux MD Unavailable [phone] Encounter Details Date Type Department Care Team (Late st Contact Info) Description 04/26/2023 Ancillary Orders Outside Imaging Alysia Elizabeth MD [address] [place] [address] [email or web address] Social History Tobacco Use Types Packs/Day [...] documented as of this encounter Results * CT Abdomen/Pelvis Outside (No Interpretation) (03/14/2023 12:00 AM EST) Other Narrative [facility] - 04/26/2023 9:31 AM EST This study is for PACS storage only and not for interpretation. us Alysia Elizabeth MD IMG OUTSIDE IMAGING W/OUT INTERP RETATION Final Result Performing Organization Address City/State/[facility] Co de Phone Number [facility] documented in this encounter Visit Diagnoses Not on filedocumented in this encounter Care Teams Noc Technician Relationship Specialty Start Date End Date Stephanie Castle MD [address] [place] [address] PCP - General Internal Medicine 04/06/23 Stephanie Thibodeaux MD [address] [place] [address] 4B_OB/SCALLOP CUTTER MACHINE EULALIA [place]AMO [address] Referring Physician Obstetrics and Gynecology 04/06/23 documented as of this encounter Additional Source Comments The information contained in this document represents components of the legal health record. It is not the complete legal health record.[facility]
--- OUTSIDE RECORDS SUMMARY | 2025-02-06 11:20 | XMS_ITS | Patient Health Record ---
Author Organization [facility] Address [address] [place] [address] Care Team Providers Care Registered Nurse Fetal Name Role Phone Ramesh Ramírez Primary Care Provider Bj Pandya Unavailable [phone] Allergies Allergen (clinical drug ingredient) Drug/Non Drug Allergy documented on EMR Reaction Allergy Type Onset Date Status Keflex Unknown Drug Allergy Active immunoglobulin G Gammagard Unknown Drug Allergy Active Reason For Referral No Information Medications Medication SIG (Take, Route, Frequency, Duration) Notes Start Date End Date Status Ventolin HFA 108 (90 Base) MCG/ACT INHALE 2 PUFFS INTO THE LUNGS EVERY 6 HOURS NEEDED FOR COUGH OR WHEEZING FOR UP TO 30 DAYS. Inhalation prn Active Tylenol 8 Hour Arthritis Giuliano n 650 MG 2 tablets as needed Orally once a day Active hydroCHLOROthiazide 25 MG TAKE 1 TABLET BY MOUTH EVERY DAY Oral for 90 Active Celecoxib 200 MG TAKE ONE CAPSULE BY MOUTH EVERY DAY Oral for 90 Active Omeprazole 40 MG TAKE ONE CAPSULE BY MOUTH EVERY DAY Oral for 90 Active Ranitidine HCl 300 MG TAKE 1 TABLET BY MOUTH EVERY DAY Oral for 90 Active Gamunex-C 20 GM/200ML as directed Inject ion every three weeks Active Atenolol 25 MG 1 tablet Orally Once a day Active Immunizations Vaccine Route Administration Date Status Comme nts Influenza Unknown 02/11/2019 Administered Social History Tobacco Use: Social History Observation Description Date Details (start date - stop date) Former Smoker NA - NA Tobacco Use/Smoking Question Answer Notes Patient is a former smoker How long has it been since you last smoked? > 10 years Alcohol Screen Question Answer Notes Did you have a drink contain ing alcohol in the past year? Yes How often did you have a dri nk containing alcohol in the past year? 2 to 4 times a month (2 points) How many drinks did you have on a typical day when you were drinking in the past year? 1 or 2 drinks (0 point) How often did you have 6 or more drinks on one occasion in the past year? Never (0 point) Points 2 Interpretation Negative Section Notes: Nonsmoker > 20yrs; no sig al cohol Problems Problem Type SNOMED Code ICD Code Onset Dates Problem Status W/U Status Risk Notes Problem 412182091 Encounter for screening for malignant neoplasm of colon (Z12.11) Active confirmed Problem 372857787 History of adenomatous polyp of colon (Z86.010) Active confirmed Problem 384464388 Gastroesophageal reflux disease, esophagitis presence not specified (K21.9) Active confirmed Problem 397481773 Family history o f colon cancer (Z80.0) Active confirmed Plan Of Treatment Future Test Test Name Order Date UPPER GI ENDOSCOPY 07/02/2019 COLONOSCOPY 07/02/2019 Insurance Providers Payer Name Payer Address Payer Phone Subscriber Number Group Number Insured Name Patient Relationship to Insured Coverage Start Date Coverage End Date MEDICARE OF [place] [address] [facility] [place] [address] [id number] ALLY GENTILE Self - patient is the insured MEDEX ATTN CLAIMS [address] [place] [address] [id number] ALLY GENTILE Self - patient is the insured Medical (General) History Medical History History ICD Code Denies [place],DM,CVA,Lung disease,renal dise ase Hypertension 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
--- OUTSIDE RECORDS SUMMARY | 2025-02-06 11:20 | XMS_ITS | Clinical Summary ---
Author Organization [facility] Address [address] [address] Phone Care Team Providers Care Nursery Teacher Name Role Phone Greg Castle MD Primary Care Provider [phone] Allergies Active Allergy Reactions Criticality Noted Date [...] 65 04/13/2023 8:10 AM EST Temperature 35.8 C (96.4 F) 04/13/2023 8:10 AM EST Respiratory Rate 16 04/13/2023 8:10 AM EST Oxygen Saturation 95% 04/13/2023 8:10 AM EST Inhaled Oxygen Concentration - - Weight 106 kg (233 lb) 04/13/2023 8:10 AM EST Height 162.6 cm (5' 4 ) 04/13/2023 8:10 AM EST Body Mass Index 39.99 04/13/2023 8:10 AM EST Plan of Treatment Health Maintenance Due Date Last Done Comments Breast Cancer Screening 1951 Pneumococcal Vaccine: 50+ Ye ars (1 of 2 - PCV) 1970 Colorectal Cancer Screening: Annual FOBT 2000 Colorectal Cancer Screening: Colonoscopy 2000 Colorectal Cancer Screening: Sigmoidoscopy 2000 Diabetes: Hemoglobin A1C 04/13/2023 Diabetes: Ophthalmology Exam 04/13/2023 Diabetes: Pedal Pulse Checked 04/13/2023 Diabetes: Sensory Foot Exam 04/13/2023 Diabetes: Visual Foot Exam 04/13/2023 Influenza Vaccine (#1) 2025 Hepatitis B Vaccine Aged Out No longe r eligible based on patient's age to complete this topic Insurance Medicare [facility] Care Teams Nursery Teacher Relationship Specialty Start Date End Date Greg Castle MD [address] [place] [address] PCP - General Internal Medicine 04/13/23
[2025-02-06 11:21] VITALS: PULSE 73; O2SAT 95
== END 2025-02-06 11:24 | disposition home or self-care (01) ==
LOC: HO.HPS 10:27
PROVIDERS: PCP Internal Medicine; Visit Provider Hospitalist
DX: D80.1 Nonfamilial hypogammaglobulinemia (principal); G47.33 Obstructive sleep apnea (adult) (pediatric); J45.40 Moderate persistent asthma, uncomplicated; C56.9 Malignant neoplasm of unspecified ovary; C78.6 Secondary malignant neoplasm of retroperitoneum and peritoneum; J44.89 Other specified chronic obstructive pulmonary disease; R91.8 Other nonspecific abnormal finding of lung field; R06.00 Dyspnea, unspecified
CPT/HCPCS: 99214; G2211

== ENCOUNTER → 2025-02-06 10:27 | Outpatient (BNVA) | payer MEDICARE, SELFPAY | PROVIDERS: PCP Internal Medicine; Visit Provider Hospitalist | DX: R06.00 Dyspnea, unspecified (principal); D80.1 Nonfamilial hypogammaglobulinemia; J45.40 Moderate persistent asthma, uncomplicated; R91.8 Other nonspecific abnormal finding of lung field; J44.89 Other specified chronic obstructive pulmonary disease; C56.9 Malignant neoplasm of unspecified ovary; C78.6 Secondary malignant neoplasm of retroperitoneum and peritoneum; G47.33 Obstructive sleep apnea (adult) (pediatric); R29.898 Other symptoms and signs involving the musculoskeletal system; J98.4 Other disorders of lung | CPT/HCPCS: 94010; 94618; 99212 ==

== ENCOUNTER 2025-02-07 06:47 | Outpatient (REF) | payer MEDICARE, SELFPAY ==
--- OUTSIDE RECORDS SUMMARY | 2025-02-07 06:50 | XMS_ITS | Patient Health Record ---
Author Organization [facility] Address [address] [place] [address] Care Team Providers Care Animal Shelter Worker Name Role Phone Ramesh Ramírez Primary Care Provider Bj Pandya Unavailable [phone] Allergies Allergen (clinical drug ingredient) Drug/Non Drug [...] Problem Status W/U Status Risk Notes Problem [id number] Encounter for screening for malignant neoplasm of colon (Z12.11) Active confirmed Problem 582478693 History of adenomatous polyp of colon (Z86.010) Active confirmed Problem 691632024 Gastroesophageal reflux disease, esophagitis presence not specified (K21.9) Active confirmed Problem 394807150 Family history o f colon cancer (Z80.0) Active confirmed Plan Of Treatment Future Test Test Name Order Date UPPER GI ENDOSCOPY 07/02/2019 COLONOSCOPY 07/02/2019 Insurance Providers Payer Name Payer Address Payer Phone Subscriber Number Group Number Insured Name Patient Relationship to Insured Coverage Start Date Coverage End Date MEDICARE OF [place] [address] [facility] [address] [id number] ALLY GENTILE Self - patient is the insured MEDEX ATTN CLAIMS [address] [place] [address] [phone] [id number] ALLY GENTILE Self - patient is the insured Medical (General) History Medical History History ICD Code Denies [place],DM,CVA,Lung disease,renal dise ase Hypertension Immunoglobulin deficiency with [...]
--- OUTSIDE RECORDS SUMMARY | 2025-02-07 06:50 | XMS_ITS | Clinical Summary ---
Author Organization [facility] Address [address] [place] [address] Phone Care Team Providers Care Hadoop Infrastructure Architect Name Role Phone Stephanie Castle MD Primary Care Provider Stephanie Thibodeaux MD Unavailable Allergies Active Allergy Reactions Criticality Noted Date [...] file Insurance MEDICARE PART A & B [employer] SUPPLEMENT MEDICARE PART A & B [place] SUPPLEMENT MEDICARE PART A & B [place] SUPPLEMENT MEDICARE PART A & B [place] MEDEX SUPPLEMENT MEDICARE PART A & B MEDEX SUPPLEMENT MEDICARE PART A & B [place] MEDEX SUPPLEMENT Care Teams Hadoop Infrastructure Architect Relationship Specialty Start Date End Date Stephanie Castle MD [facility] [place] [address] PCP - General Internal Medicine 04/06/23 Stephanie Thibodeaux MD [address] [place] [address] 4B_OB/[place] [address] Referring Physician Obstetrics and Gynecology 04/06/23 Additional Source Comments The information contained in this document represents components of the legal health record. It is not the complete legal health record.[facility]
--- OUTSIDE RECORDS SUMMARY | 2025-02-07 06:50 | XMS_ITS | Encounter Summary ---
Author Organization [facility] Address [address] [facility] [address] [place] [address] Phone Care Team Providers Care Children'S Nursery Assistant Name Role Phone Stephanie Castle MD Primary Care Provider Stephanie Thibodeaux MD Unavailable [phone] Encounter Details Date Type Department Care Team (Late st Contact Info) Description 04/26/2023 Ancillary Orders Outside Imaging Alysia Elizabeth MD [address] [place] [address] [email or web address] Social History Tobacco Use Types Packs/Day Years [...] INTERP RETATION Final Result Performing Organization Address City/State/[facility] Co de Phone Number [facility] documented in this encounter Visit Diagnoses Not on filedocumented in this encounter Care Teams Children'S Nursery Assistant Relationship Specialty Start Date End Date Stephanie Castle MD [address] [facility] [place] [address] PCP - General Internal Medicine 04/06/23 Stephanie Thibodeaux MD [facility] [address] 4B_OB/CAD PROGRAMMER [place]ULALIA [place]AM[place] [address] Referring Physician Obstetrics and Gynecology 04/06/23 documented as of this encounter Additional Source Comments The information contained in this document represents components of the legal health record. It is not the complete legal health record.[facility]
--- OUTSIDE RECORDS SUMMARY | 2025-02-07 06:50 | XMS_ITS | Clinical Summary ---
Author Organization [facility] Address [address] [address] Phone Care Team Providers Care Sheet Pile Driver Operator Name Role Phone Greg Castle MD Primary Care Provider [phone] Allergies Active Allergy Reactions Criticality Noted Date [...] age to complete this topic Insurance Medicare [facility] Care Teams Sheet Pile Driver Operator Relationship Specialty Start Date End Date Greg Castle MD [address] [place] [address] PCP - General Internal Medicine 04/13/23
--- OUTSIDE RECORDS SUMMARY | 2025-02-07 06:50 | XMS_ITS | Encounter Summary ---
Author Organization [facility] Address [address] [facility] [address] [place] [address] Phone Care Team Providers Care Homemaking Rehabilitation Consultant Name Role Phone Stephanie Castle MD Primary Care Provider Stephanie Thibodeaux MD Unavailable [phone] Encounter Details Date Type Department Care Team (Late st Contact Info) Description 04/26/2023 Ancillary Orders Outside Imaging Alysia Elizabeth MD [address] [place] [id number] [email or web address] Social History Tobacco Use Types Packs/Day [...] INTERP RETATION Final Result Performing Organization Address City/State/[facility] Co de Phone Number [facility] documented in this encounter Visit Diagnoses Not on filedocumented in this encounter Care Teams Homemaking Rehabilitation Consultant Relationship Specialty Start Date End Date Stephanie Castle MD [address] [facility] [address] PCP - General Internal Medicine 04/06/23 Stephanie Thibodeaux MD [facility] [address] 4B_OB/WIRELESS CELLULAR TECHNICIAN EULALIA ALAMO [address] Referring Physician Obstetrics and Gynecology 04/06/23 documented as of this encounter Additional Source Comments The information contained in this document represents components of the legal health record. It is not the complete legal health record.[facility]
--- OUTSIDE RECORDS SUMMARY | 2025-02-07 06:50 | XMS_ITS | Encounter Summary ---
Author Organization [facility] Address [address] [facility] [address] [place] [address] Phone Care Team Providers Care Antitank Assault Gunner Name Role Phone Stephanie Castle MD Primary Care Provider Stephanie Thibodeaux MD Unavailable [phone] Encounter Details Date Type Department Care Team (Late st Contact Info) Description 04/26/2023 Ancillary Orders Outside Imaging Alysia Elizabeth MD [address] [place] [address] [email or web address] Social History Tobacco Use Types Packs/Day Years [...] INTERP RETATION Final Result Performing Organization Address City/State/[facility] Co de Phone Number [facility] documented in this encounter Visit Diagnoses Not on filedocumented in this encounter Care Teams Antitank Assault Gunner Relationship Specialty Start Date End Date Stephanie Castle MD [address] [place] [address] PCP - General Internal Medicine 04/06/23 Stephanie Thibodeaux MD [address] [place] [address] 4B_OB/PLATEN PRESS OPERATOR EULALIA ALAMO [address] Referring Physician Obstetrics and Gynecology 04/06/23 documented as of this encounter Additional Source Comments The information contained in this document represents components of the legal health record. It is not the complete legal health record.[facility]
[2025-02-07 11:16] LABS: MANUAL DIFF FLAG NO
[2025-02-07 11:35] LABS: Hematocrit 43.6 % (37.0-47.0); Hemoglobin 13.7 g/dl (12.0-16.0); Imm Gran Abs Auto 0.02 X10*3/uL (0.00-0.03); Imm Gran Pct Auto 0.2 % (0.0-0.4); Lymphocytes Absolute Auto 3.2 X10*3/uL (1.2-4.9); Mean Corpuscular HGB Conc 31.4 g/dl (31.0-35.0); Mean Corpuscular Hemoglobin 25.0 pg (27.0-33.0); Mean Corpuscular Volume 79.7 fL (80.0-98.0); NRBC Abs Auto 0.000 X10*3/uL (0.0-0.012); NRBC Pct Auto 0.0 /100WBC (0.0-0.2); Platelet Count 340 X10*3/uL (160-400); Red Blood Count 5.47 X10*6/uL (4.20-5.50); White Blood Count 8.1 X10*3/uL (4.8-10.8)
[2025-02-07 12:02] LABS: Alanine Aminotransferase 31 U/L (0-31); Albumin Level 3.8 g/dL (3.5-5.0); Alkaline Phosphatase 133 U/L (39-117); Anion Gap 12 (12-20); Aspartate Amino Transferase 57 U/L (5-31); Blood Urea Nitrogen 35 mg/dL (9-16); Calcium 9.0 mg/dL (8.4-10.2); Carbon Dioxide 27 mmol/L (22-29); Chloride 105 mmol/L (96-108); Cholesterol 210 mg/dL (<200); Estimated Glomerular Filt Rate > 60; HDL Cholesterol 58 mg/dL (>40); Potassium 4.0 mmol/L (3.3-5.1); Sodium 140 mmol/L (135-145); Total Protein 7.4 g/dL (6.5-8.0); Triglycerides 148 mg/dL (<150)
[2025-02-07 12:29] LABS: Folate 16.2 ng/mL (> or = 4.0); Vitamin B12 1146 pg/mL (200-900)
[2025-02-07 12:30] LABS: Troponin-I High Sensitivity < 2.7 ng/L (<3.5-17.0)
[2025-02-10 12:18] LABS: Immunoglobulin G Subclass 1 1224 mg/dL (382-929); Immunoglobulin G Subclass 2 189 mg/dL (241-700); Immunoglobulin G Subclass 3 54 mg/dL (22-178); Immunoglobulin G Subclass 4 13.7 mg/dL (4-86); Immunoglobulin G Total 1732 mg/dL (600-1540)
== END 2025-02-07 06:48 | disposition home or self-care (01) ==
LOC: HO.HMGCLDS 06:47
PROVIDERS: Absent Provider Hospitalist; PCP Internal Medicine; Visit Provider Internal Medicine
DX: C78.6 Secondary malignant neoplasm of retroperitoneum and peritoneum (principal); E78.2 Mixed hyperlipidemia; D80.1 Nonfamilial hypogammaglobulinemia; E55.9 Vitamin D deficiency, unspecified; J98.4 Other disorders of lung; R73.01 Impaired fasting glucose; I10 Essential (primary) hypertension; R06.00 Dyspnea, unspecified; Z86.0101 Personal history of adenomatous and serrated colon polyps
CPT/HCPCS: 36415; 80048; 80053; 80061; 82306; 82607; 82746; 82784; 83036; 84484; 85025; 85652

== ENCOUNTER 2025-02-17 13:02 | Outpatient (AMB) | payer MEDICARE, SELFPAY ==
--- NOTE | 2025-02-17 13:08 | A.OFFPC_ITS ---
Vital Signs 02/17/25 13:11 Height 5 ft 4 in Weight 232 lb BMI 39.8 BP 118/60 Blood Pressure Location Rt brachial Position Sitting Respiration 16 Pulse 78 Pulse Source Pulse Oximeter Temp 97.8 F Temp Source Oral Pulse Oximetry (%) 98 Oxygen Delivery Method Room Air Intake Visit Reasons: Rt eye cataract 02/24 & Lt eye 03/03 Intake Note: Pt is here today for her pre-op Rt eye cataract 02/24 & Lt eye cataract 03/03 Dr. Ashley Allergies cephalexin (Keflex) Allergy (Unknown, Verified 02/18/25 12:22) anaphylaxis glycine (From GAMMAGARD S/D) Adverse Reaction (Unknown, Verified 02/18/25 12:22) WEAKNESS IgA less than or equal to 50 mcg/mL (From GAMMAGARD S/D) Adverse Reaction (Unknown, Verified 02/18/25 12:22) WEAKNESS immune globulin,gamma (IgG) human (From GAMMAGARD S/D) Adverse Reaction (Unknown, Verified 02/18/25 12:22) WEAKNESS Penicillins (PENICILLINS) Adverse Reaction (Unknown, Verified 02/18/25 12:22) DIARRHEA atorvastatin Adverse Reaction (Verified 02/18/25 12:22) muscle ache pravastatin Adverse Reaction (Verified 02/18/25 12:22) Muscle pain Medication List - Last Reconciled 02/17/25 by Stephanie Castle MD acetaminophen (Tylenol Extra Strength) 1,000 mg PO DAILY PRN albuterol sulfate 90 mcg/actuation 2 puffs inhalation Q4-6H PRN atenolol 25 mg PO DAILY 90 days celecoxib 200 mg PO DAILY PRN cholecalciferol (vitamin D3) 25 mcg PO DAILY coenzyme Q10 (Co Q-10) 400 mg PO DAILY ezetimibe 10 mg PO DAILY fam-trastuzumab deruxtecn-nxki IV fluticasone furoate 100 mcg/actuation (Arnuity Ellipta) 1 inh inhalation DAILY 30 days gabapentin 300 mg PO TID hydrochlorothiazide 25 mg PO DAILY 90 days immune globul G-gly-IgA avg 46 10 gram/100 mL (10 %) (Gamunex-C) IV Q3W lactobacillus combination no.9 (Adult 50 Plus Probiotic) 4,000 mmu cells PO DAILY methylphenidate HCl (Ritalin) 5 mg PO BID vitamin B complex 1 tab PO DAILY Tobacco use date assessed: 02/17/25 Fall risk assessment: No Falls in past year Last assessed Fall Risk: 02/17/25 Dental Screening Dental Screen Date: 02/17/25 Did you have a dental visit in the last 12 months?: Yes Did you have a dental problem in the last 6 months where you did not have access to dental care?: No Was dental information given to patient?: Patient has dentist HPI Rt eye cataract 02/24 & Lt eye 03/03 HPI Details The patient is a 74-year-old female with past medical history significant for ovarian cancer, currently undergoing chemotherapy, being seen by Dr. Thibodeaux, interstitial lung disease, obstructive sleep apnea currently on supplemental oxygen at night, history of asthma and COPD, hypertension , here today for preoperative exam for cataract surgery scheduled for 02/24/2025 on right eye and 03/03/2025 on left eye requested by Dr. Ashley.. She reports significant vision impairment, describing her vision as fuzzy with cloudiness and difficulty seeing at night due to lights. The cataracts have progressed to the point where her prescription glasses are ineffective, prompting the need for surgical intervention. [facility] Medical History (Updated 02/18/25 @ 12:30 by Stephanie Castle MD) Recurrent malignant neoplasm of ovary Dyspnea History of adenomatous polyp of colon Pulmonary nodules Asthma-COPD overlap syndrome Chemotherapy-induced fatigue Hand weakness Pleural effusion 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 pain with right-sided sciatica Post-menopause Vitamin D deficiency Myalgia due to statin Tubular adenoma of colon Nonfamilial hypogammaglobulinemia Trigger finger De Quervain's disease (radial styloid tenosynovitis) Osteoarthritis of knee ERNIE (obstructive sleep apnea) Hiatal hernia Impaired fasting glucose Mixed dyslipidemia Hypertension Surgical History (Updated 02/18/25 @ 12:28 by Stephanie Castle MD) History of colonoscopy with polypectomy History of bilateral knee replacement Hx of tonsillectomy Hx of cholecystectomy History of bowel resection Hx of appendectomy Family History Mother HTN (hypertension) Uterine cancer Father Colon cancer Sister CVA (cerebral vascular accident) Breast cancer, Onset Age: 50 Social History Household Members: Spouse Household Members Other:: and son Housing: House Do you presently have visiting nurse or other home services: No Alcohol intake: never Comment: no used for pain Patient Tobacco Use Status: Former Tobacco user Tobacco use type: Cigarette Years Smoked: 15 Years e-Cigarette/Vaping Use: Never Used Second Hand Smoke Exposure: No service: No Current occupational status: retired Cognitive needs: No Hearing needs: No Vision needs: Yes Female Reproductive History Menstrual Age of Menarche: 14 Questionnaire PHQ-9 Over the last 2 weeks, how often have you been bothered by any of the following problems? 1. Little interest or pleasure in doing things: not at all 2. Feeling down, depressed, or hopeless: not at all 3. Trouble falling or staying asleep, or sleeping too much: not at all 4. Feeling tired or having little energy: more than half the days 5. Poor appetite or overeating: not at all 6. Feeling bad about yourself - or that you are a failure or have let yourself or your family down: not at all 7. Trouble concentrating on things, such as reading the newspaper or watching television: not at all 8. Moving or speaking so slowly that other people could have noticed. Or the opposite - being so fidgety or restless that you have been moving around a lot more than usual: not at all 9. Thoughts that you would be better off or of hurting yourself in some way: not at all Total score: 2 Depression Screening Interpretation: Negative Depression Screening Done: Yes 98700 - PHQ-9 Billing: Yes Source: Developed by Drs. Bj Price, Lela Richmond, Tahir Sharma and colleagues, with an educational itzel from [employer]. Thrive Questionnaire Date Thrive assessed: 02/17/25 I am a: Patient What is your living situation today?: I have a steady place to live Within the past 12 months, did the food you bought not last and you didn't have the money to get more?: Never true Within the past 12 months, did you worry whether your food would run out before you got money to buy more?: Never true Do you have trouble paying for medicines?: No Do you have trouble getting transportation to medical appointments?: No Do you have trouble paying your heating and electricity bill?: No Do you have trouble taking care of your child, family member or friend?: No Do you have trouble with day-to-day activities such as bathing, preparing meals, shopping, managing finances, etc.?: No Are you currently unemployed and looking for a job?: No Are you interested in more education?: No Please select the resources that you would like help with: None Currently or been in a relationship where the following occur: No concerns reported THRIVE Score: 0 AUDIT C Alcohol Use Questionnaire (AUDIT-C) 1. How often do you have a drink containing alcohol?: Never Total Score: 0 Score Reviewed/Action Taken: Yes STERLING-7 AMB Questionnaire STERLING-7 Date STERLING - 7 assessed: 02/17/25 Feeling nervous, anxious, or on edge: 0 = Not at all Not being able to stop or control worryin = Not at all Worrying too much about different things: 0 = Not at all Trouble relaxin = Not at all Being so restless that it is hard to sit still: 0 = Not at all Becoming easily annoyed or irritable: 0 = Not at all Feeling afraid as if something awful might happen: 0 = Not at all Total STERLING-7 score (0-4 normal; 5-9 mild; 10-14 moderate; 15-21 severe): 0 Source: Developed by Drs. Bj Price, Lela Richmond, Tahir Sharma and colleagues, with an educational itzel from [employer]. STERLING-7 Assessment Billing STERLING-7 Assessment Tool: STERLING-7 Assessment 11780 Review of Systems Const Denies body aches, Denies headache(s) and Denies poor appetite Eyes Reports as per HPI ENT Denies dysphagia, Denies dizziness, Denies headache(s), Denies nasal congestion and Denies nasal discharge Card Denies chest pain and Reports dyspnea on exertion Resp Denies cough and Reports dyspnea on exertion GI Denies dysphagia and Denies heartburn Reports no additional complaints Musc Denies back pain, Denies arthralgias, Denies muscle cramps, Reports muscle weak ness and Reports tingling Skin/Breast Denies breast pain, Denies breast mass and Denies rash Neuro Denies dizziness, Denies headache(s), Denies focal weakness and Reports tingling Psych Reports no additional complaints Endo Reports no additional complaints Wayne/Lymph Reports no additional complaints Aller/Immun Reports no additional complaints Physical exam (Primary Care) Vital Signs: Last Vital Signs Temp 97.8 F 02/17/25 13:11 Pulse 78 02/17/25 13:11 Resp 16 02/17/25 13:11 BP 118/60 02/17/25 13:11 Pulse Ox 98 02/17/25 13:11 Oxygen Delivery Method Room Air 02/17/25 13:11 BMI result Body Mass Index 39.8 Tobacco/Smoking Status: Tobacco use Status Tobacco use date assessed 02/17/25 02/17/25 13:17 Patient Tobacco Use Status Former Tobacco user 02/17/25 13:11 Tobacco use type Cigarette 02/17/25 13:11 e-Cigarette/Vaping Use Never Used 02/17/25 13:11 PHQ-9: PHQ-9 Score PHQ-9: Total score 2 02/18/25 12:31 Depression Screening Interpretation: Negative Thrive Assessment: Date of Thrive Assessment Date Thrive assessed 02/17/25 02/17/25 13:18 Currently or been in a relationship where the following occur: No concerns reported Const General: no acute distress and alert Nutritional Appearance: obese morbidly obese [facility] Head: Yes normocephalic Ears: external ears normal, TM's normal bilaterally and EAC's normal General nose exam: Normal external nose present Face and sinus: Yes face symmetric Mouth: Normal oral and palatal mucosa present, tongue normal and moist mucous membranes Eyes General: appearance normal, both eyes and all related structures Neck Other: Supple no lymphadenopathy, thyroid gland nonpalpable Resp Auscultation: clear to auscultation bilaterally Cardio Other: S1-S2 present regular rate and rhythm GI Other: Obese, soft, nontender, no mass palpated Auscultation: normal bowel sounds General: Yes no CVA tenderness Back/Spine/Pelvis Back: no CVA tenderness and No back tenderness Skin General skin exam: no rashes or lesions noted Neuro General: gait normal, moves all extremities, Normal light touch and pain sensation, no focal motor deficits and CN's II-XI intact bilaterally Extrem Other: No gross bone deformity or joint swelling seen Psych Appearance: grossly normal and well kempt Mental Status: mental status grossly normal Speech and movement: Normal speech and movement present Affect: normal affect Results Reviewed Results Reviewed: Name: Kamille Palacios Age/Sex: 74/F : 1950 Unit#: [id number] Attend Dr: Stephanie Castle MD Re02/07/25 Status: DEP REF Location: [facility] Disch: SPEC : [id number] TIERA: 02/07/25 STATUS: COMP REQ : [id number] RECD: 02/07/[address]: Stephanie Castle MD COMP: 02/07/25 ENTERED: 02/07/[address] [facility] [address]: Artur Pierre MD ORDERED: CBC Auto Diff Test Result Flag Reference WBC 8.1 4.8-10.8 X10*3/uL RBC 5.47 4.20-5.50 X10*6/uL HGB 13.7 12.0-16.0 g/dl HCT 43.6 37.0-47.0 % MCV 79.7 L 80.0-98.0 fL MCH 25.0 L 27.0-33.0 pg MCHC 31.4 31.0-35.0 g/dl RDW 16.4 H 11.0-16.0 % PLT 340 160-400 X10*3/uL MPV 9.5 9.4-12.3 fL Neut Pct Auto 55.8 45-73 % ImGran Pct Auto 0.2 0.0-0.4 % Lymp Pct Auto 39.7 20-40 % [place]i Pct Auto 2.9 2-11 % Eos Pct Auto 1.0 0-4 % Baso Pct Auto 0.4 0-2 % NRBC Pct Auto 0.0 0.0-0.2 /100WBC ANC Neut Abs # 4.5 2.0-8.3 x10*3/uL ImGran Abs Auto 0.02 0.00-0.03 X10*3/uL Lymph Abs Auto 3.2 1.2-4.9 X10*3/uL Un[place]i Abs Auto 0.2 0.1-1.2 X10*3/uL Eos Abs Auto 0.1 0.0-0.4 X10*3/uL Baso Abs Auto 0.0 0.0-0.2 X10*3/uL NRBC Abs Auto 0.000 0.0-0.012 X10*3/uL Name: Kamille Palacios Age/Sex: 74/F : 1950 Unit#: [id number] Attend Dr: Stephanie Castle MD Re02/07/25 Status: DEP REF Location: [facility] Disch: SPEC : [id number] TIERA: 02/07/25 STATUS: COMP REQ : [id number] RECD: 02/07/[address]: Stephanie Castle MD COMP: 02/07/25 ENTERED: 02/07/[address]: Artur Pierre MD ORDERED: CMP Fast, BMP, Lipid Panel, Vitamin D 25-OH Test Result Flag Reference Sodium 140 135-145 mmol/L Potassium 4.0 3.3-5.1 mmol/L CL 105 96-108 mmol/L CO2 27 22-29 mmol/L Gap 12 12-20 BUN 35 H 9-16 mg/dL Creat 0.78 0.5-1.4 mg/dL eGFR > 60 Chronic Kidney Disease: Estimated GFR < 60 mL/min/1.73m2 Severe Kidney Disease: Estimated GFR < 15 mL/min/1.73m2 Glucose, Random 85 60-115 mg/dL FBS 85 60-99 mg/dL CA 9.0 8.4-10.2 mg/dL Total Bili 1.0 0.0-1.0 mg/dL AST (GOT) 57 H 5-31 U/L ALT (GPT) 31 0-31 U/L Protein, Total 7.4 6.5-8.0 g/dL Alb 3.8 3.5-5.0 g/dL Triglyceride 148 <150 mg/dL Desirable Triglyceride: less than 150 mg/dL Borderline High Triglyceride 150-199 mg/dL High Triglyceride: 200-499 mg/dL Very High Triglyceride: greater than or equal to 5OO mg/dL Cholesterol 210 H <200 mg/dL Desirable Cholesterol: less than 200 mg/dL Borderline High Cholesterol: 200-239 mg/dL High Cholesterol: greater than 239 mg/dL LDL Calculated 123 H <100 mg/dL Desirable LDL: less than 100 mg/dL Near Optimal/Above Optimal LDL: 110-129 mg/dL Borderline High LDL: 130-159 mg/dL High LDL: 160-189 mg/dL Very High LDL: greater than or equal to 190 mg/dL HDL 58 >40 mg/dL Desirable HDL: greater than 40 mg/dL Note: This HDL assay may give artificially low results in patients with liver disease. Alk Phos 133 H 39-117 U/L Vitamin D 25-OH 33.9 >30 ng/mL Health Based Reference Values* < 20 ng/mL Deficient 20-30 ng/mL Insufficient > 30 ng/mL Sufficient Coding Level of Care Code Est Pt Level 4 (82275) Complex EM visit Add On G2211 Diagnoses Preoperative examination Z01.818 Asthma-COPD overlap syndrome J44.89 Lumbar disc herniation with radiculopathy M51.16 ERNIE (obstructive sleep apnea) G47.33 Mixed dyslipidemia E78.2 Primary hypertension I10 Hypertension type: primary hypertension Recurrent malignant neoplasm of ovary C56.9 Nonfamilial hypogammaglobulinemia D80.1 Additional Codes STERLING-7 Assessment Billing - STERLING-7 Assessment Tool: STERLING-7 Assessment 57814 ([id number]) PHQ-9 - 95050 - PHQ-9 Billing: Yes ([id number]) Assessment & Plan Assessment & Plan (1) Preoperative examination: Code(s): Z01.818 - Encounter for other preprocedural examination Plan: 74-year-old lady here today for preoperative examination for cataract surgery scheduled for 02/24/2025 for the right eye and 03/03/2025 for the left eye , requested by Dr. Ashley. Currently receiving chemotherapy every 3 weeks, tolerating well for now. Physical examination and review of recent labs showed results within normal limits. Patient without any cardiac or pulmonary complaints at present time. She has a low to moderate cardiac risk index for proposed surgery (2) Asthma-COPD overlap syndrome: Code(s): J44.89 - Other specified chronic obstructive pulmonary disease Category: Medical Plan: Followed by Pulmonary currently on albuterol inhaler as needed, Arnuity Ellipta 1 inhalation daily (3) Lumbar disc herniation with radiculopathy: Code(s): M51.16 - Intervertebral disc disorders with radiculopathy, lumbar region Category: Medical Plan: Takes Tylenol extra strength 1000 mg once a day as needed (4) ERNIE (obstructive sleep apnea): Comment: Intolerant of CPAP Code(s): G47.33 - Obstructive sleep apnea (adult) (pediatric) Category: Medical Plan: Using supplemental oxygen at bedtime at 2 L per nasal cannula (5) Mixed dyslipidemia: Code(s): E78.2 - Mixed hyperlipidemia Category: Medical Plan: Latest fasting lipids are within normal limits, continued on ezetimibe 10 mg daily (6) Hypertension: Code(s): I10 - Essential (primary) hypertension Category: Medical Qualifiers: Hypertension type: primary hypertension Qualified Code(s): I10 - Essential (primary) hypertension Plan: Blood pressure at goal of less than 130/80. Continue with atenolol 25 mg daily and hydrochlorothiazide 25 mg in the morning Reinforced importance of following a low sodium diet, getting regular exercise, and lowering stress levels. (7) Recurrent malignant neoplasm of ovary: Comment: started on Enhertu infusion q3 weeks by Dr Thibodeaux 02/04/25 Code(s): C56.9 - Malignant neoplasm of unspecified ovary Category: Medical Plan: Followed by Dr. Thibodeaux, currently receiving chemotherapy infusion every 3 weeks, continued on gabapentin 300 mg 1 tablet 3 times a day for treatment of neuropathy (8) Nonfamilial hypogammaglobulinemia: Code(s): D80.1 - Nonfamilial hypogammaglobulinemia Category: Medical Plan: Currently on Gamunex
[2025-02-17 13:11] VITALS: BP 118/60; PULSE 78; RESP 16; TEMP 36.6; O2SAT 98; BMI 39.8
--- OUTSIDE RECORDS SUMMARY | 2025-02-17 15:43 | XMS_ITS | Patient Health Record ---
Author Organization [facility] Address [address] [place] [address] Care Team Providers Care Trimming Machine Operator Name Role Phone Ramesh Ramírez Primary Care Provider Bj Pandya Unavailable [phone] Allergies Allergen (clinical drug ingredient) Drug/Non Drug [...] TAKE 1 TABLET BY MOUTH EVERY DAY Oral; Duration: 90 Active Celecoxib 200 MG TAKE ONE CAPSULE BY MOUTH EVERY DAY Oral; Duration: 90 Active Omeprazole 40 MG TAKE ONE CAPSULE BY MOUTH EVERY DAY Oral; Duration: 90 Active Ranitidine HCl 300 MG TAKE 1 TABLET BY MOUTH EVERY DAY Oral; Duration: 90 Active Gamunex-C 20 GM/200ML as directed [...] Problem Status W/U Status Risk Notes Problem Screening for malignant neoplasm of colon (391756992) Encounter for screening for malignant neoplasm of colon (Z12.11) Active confirmed Problem History of adenomatous polyp of colon (720340062) History of adenomatous polyp of colon (Z86.010) Active confirmed Problem Gastroesophageal reflux disease (432942864) Gastroesophageal reflux disease, esophagitis presence not specified (K21.9) Active confirmed Problem Family History of Cancer of Colon (Situation) (467465364) Family history of colon cancer (Z80.0) Active confirmed Plan Of Treatment Future Test Test Name Order Date UPPER GI ENDOSCOPY 07/02/2019 COLONOSCOPY 07/02/2019 Insurance Providers Payer Name Payer Address Payer Phone Subscriber Number Group Number Insured Name Patient Relationship to Insured Coverage Start Date Coverage End Date MEDICARE OF [place] [address] [place] [address] [id number] ALLY GENTILE Self - patient is the insured [employer] ATT[employer] CLAIMS [address] [place] [address] [id number] ALLY GENTILE Self - patient is the insured Medical (General) History Medical History History ICD Code Denies SC,DM,CVA,Lung disease,renal dise ase Hypertension Immunoglobulin deficiency with [...]
--- OUTSIDE RECORDS SUMMARY | 2025-02-17 15:44 | XMS_ITS | Clinical Summary ---
Author Organization [facility] Address [address] [place] [address] Phone Care Team Providers Care Patient Financial Services Specialist Name Role Phone Stephanie Castle MD Primary [...] file Insurance MEDICARE PART A & B [employer] MEDEX SUPPLEMENT MEDICARE PART A & B [employer] MEDEX SUPPLEMENT MEDICARE PART A & B [employer] MEDEX SUPPLEMENT MEDICARE PART A & B [employer] MEDEX SUPPLEMENT MEDICARE PART A & B MEDEX SUPPLEMENT MEDICARE PART A & B [employer] MEDEX SUPPLEMENT Care Teams Patient Financial Services Specialist Relationship Specialty Start Date End Date Stephanie Castle MD [facility] [place] [address] PCP - General Internal Medicine 04/06/23 Stephanie Thibodeaux MD [address] [place] [address] 4B_OB/[place] [address] Referring Physician Obstetrics and Gynecology 04/06/23 Additional Source Comments The information contained in this document represents components of the legal health record. It is not the complete legal health record.[facility]
--- OUTSIDE RECORDS SUMMARY | 2025-02-17 15:44 | XMS_ITS | Clinical Summary ---
Author Organization [facility] Address [address] [address] Phone Care Team Providers Care Radiology Administrator Name Role Phone Greg Castle MD Primary Care Provider [phone] Allergies Active Allergy Reactions Criticality Noted Date [...] finger 03/28/2023 Vitamin D deficiency 03/28/2023 Tubular adenomatous polyp of colon 03/28/2023 Social History Tobacco Use [...] age to complete this topic Insurance Medicare [facility] Care Teams Radiology Administrator Relationship Specialty Start Date End Date Greg Castle MD [address] [place] [address] PCP - General Internal Medicine 04/13/23
--- OUTSIDE RECORDS SUMMARY | 2025-02-17 15:44 | XMS_ITS | Encounter Summary ---
Author Organization [facility] Address [address] [facility] [address] [place] [address] Phone Care Team Providers Care Interchange Agent Name Role Phone Stephanie Castle MD Primary Care Provider Stephanie Thibodeaux MD Unavailable [phone] Encounter Details Date Type Department Care Team (Late st Contact Info) Description 04/26/2023 Ancillary Orders Outside Imaging Alysia Elizabeth MD [address] [place] [phone] [email or web address] Social History Tobacco Use Types Packs/Day [...] INTERP RETATION Final Result Performing Organization Address City/State/[facility] Co de Phone Number [facility] documented in this encounter Visit Diagnoses Not on filedocumented in this encounter Care Teams Interchange Agent Relationship Specialty Start Date End Date Stephanie Castle MD [address] [facility] [place] [address] PCP - General Internal Medicine 04/06/23 Stephanie Thibodeaux MD [facility] [address] 4B_OB/MILITARY ANALYST [place] [address] Referring Physician Obstetrics and Gynecology 04/06/23 documented as of this encounter Additional Source Comments The information contained in this document represents components of the legal health record. It is not the complete legal health record.[facility]
--- OUTSIDE RECORDS SUMMARY | 2025-02-17 15:44 | XMS_ITS | Encounter Summary ---
Author Organization [facility] Address [address] [facility] [address] [place] [address] Phone Care Team Providers Care Airline Security Representative Name Role Phone Stephanie Castle MD Primary Care Provider Stephanie Thibodeaux MD Unavailable [phone] Encounter Details Date Type Department Care Team (Late st Contact Info) Description 04/26/2023 Ancillary Orders Outside Imaging Alysia Elizabeth MD [address] [place] [phone] [email or web address] Social History Tobacco Use Types Packs/Day [...] INTERP RETATION Final Result Performing Organization Address City/State/[facility] Co de Phone Number [facility] documented in this encounter Visit Diagnoses Not on filedocumented in this encounter Care Teams Airline Security Representative Relationship Specialty Start Date End Date Stephanie Castle MD [address] [facility] [place] [address] PCP - General Internal Medicine 04/06/23 Stephanie Thibodeaux MD [facility] [address] 4B_OB/CONSULTING TECHNICAL DIRECTOR [place] [address] Referring Physician Obstetrics and Gynecology 04/06/23 documented as of this encounter Additional Source Comments The information contained in this document represents components of the legal health record. It is not the complete legal health record.[facility]
--- OUTSIDE RECORDS SUMMARY | 2025-02-17 15:44 | XMS_ITS | Encounter Summary ---
Author Organization [facility] Address [address] [facility] [address] [place] [address] Phone Care Team Providers Care Manufacturing Automation Engineer Name Role Phone Stephanie Castle MD Primary Care Provider Stephanie Thibodeaux MD Unavailable [phone] Encounter Details Date Type Department Care Team (Late st Contact Info) Description 04/26/2023 Ancillary Orders Outside Imaging Alysia Elizabeth MD [address] [place] [id number] [email or web address] Social History Tobacco Use Types Packs/Day [...] INTERP RETATION Final Result Performing Organization Address City/State/[facility] Co de Phone Number [facility] documented in this encounter Visit Diagnoses Not on filedocumented in this encounter Care Teams Manufacturing Automation Engineer Relationship Specialty Start Date End Date Stephanie Castle MD [address] [facility] [address] PCP - General Internal Medicine 04/06/23 Stephanie Thibodeaux MD [address] [place] [address] 4B_OB/EHR TRAINER EULALIA ALAMO [address] Referring Physician Obstetrics and Gynecology 04/06/23 documented as of this encounter Additional Source Comments The information contained in this document represents components of the legal health record. It is not the complete legal health record.[facility]
== END 2025-02-17 14:44 | disposition home or self-care (01) ==
LOC: HO.HMCC 13:03
PROVIDERS: PCP Internal Medicine; Visit Provider Internal Medicine
DX: Z01.818 Encounter for other preprocedural examination (principal); J44.89 Other specified chronic obstructive pulmonary disease; M51.16 Intervertebral disc disorders with radiculopathy, lumbar region; G47.33 Obstructive sleep apnea (adult) (pediatric); E78.2 Mixed hyperlipidemia; I10 Essential (primary) hypertension; C56.9 Malignant neoplasm of unspecified ovary; D80.1 Nonfamilial hypogammaglobulinemia

== ENCOUNTER → 2025-02-17 13:02 | Outpatient (BNVA) | payer MEDICARE, SELFPAY | PROVIDERS: PCP Internal Medicine; Visit Provider Internal Medicine | DX: Z01.818 Encounter for other preprocedural examination (principal); J44.89 Other specified chronic obstructive pulmonary disease; M51.16 Intervertebral disc disorders with radiculopathy, lumbar region; G47.33 Obstructive sleep apnea (adult) (pediatric); E78.2 Mixed hyperlipidemia; I10 Essential (primary) hypertension; C56.9 Malignant neoplasm of unspecified ovary; D80.1 Nonfamilial hypogammaglobulinemia; Z92.21 Personal history of antineoplastic chemotherapy | CPT/HCPCS: 96127; 99212 ==

== ENCOUNTER → 2025-02-18 12:26 | Outpatient (REF) | payer MEDICARE, SELFPAY ==
--- NOTE | 2025-02-18 12:33 | ECG_ITS ---
Test Reason : copd Blood Pressure : */* mmHG Vent. Rate : 75 BPM Atrial Rate : 75 BPM P-R Int : 166 ms QRS Dur : 76 ms QT Int : 404 ms P-R-T Axes : 52 -20 34 degrees QTcB Int : 451 ms Normal sinus rhythm Normal ECG When compared with ECG of 08-Apr-2020 21:18, No significant change was found Referred By: Artur Pierre Electronically Signed By: Chinedu Cerda
--- OUTSIDE RECORDS SUMMARY | 2025-02-18 15:43 | XMS_ITS | Encounter Summary ---
Author Organization [facility] Address [address] [facility] [address] [place] [address] Phone Care Team Providers Care Forging Machine Hand Name Role Phone Stephanie Castle MD Primary Care Provider Stephanie Thibodeaux MD Unavailable [phone] Encounter Details Date Type Department Care Team (Late st Contact Info) Description 04/26/2023 Ancillary Orders Outside Imaging Alysia Elizabeth MD [address] [place] [id number] [email or web address] Social History Tobacco Use Types Packs/Day [...] INTERP RETATION Final Result Performing Organization Address City/State/[facility] Co de Phone Number [facility] documented in this encounter Visit Diagnoses Not on filedocumented in this encounter Care Teams Forging Machine Hand Relationship Specialty Start Date End Date Stephanie Castle MD [address] [facility] [place] [address] PCP - General Internal Medicine 04/06/23 Stephanie Thibodeaux MD [facility] [address] 4B_OB/DESIZING MACHINE OPERATOR HEAD END EULALIA ALAMO [address] Referring Physician Obstetrics and Gynecology 04/06/23 documented as of this encounter Additional Source Comments The information contained in this document represents components of the legal health record. It is not the complete legal health record.[facility]
--- OUTSIDE RECORDS SUMMARY | 2025-02-18 15:43 | XMS_ITS | Encounter Summary ---
Author Organization [facility] Address [address] [facility] [address] [place] [address] Phone Care Team Providers Care Ophthalmic Lens Inspector Name Role Phone Stephanie Castle MD Primary Care Provider Stephanie Thibodeaux MD Unavailable [phone] Encounter Details Date Type Department Care Team (Late st Contact Info) Description 04/26/2023 Ancillary Orders Outside Imaging Alysia Elizabeth MD [address] [place] [address] [email or web address] Social History Tobacco Use Types Packs/Day [...] INTERP RETATION Final Result Performing Organization Address City/State/[facility] Co de Phone Number [facility] documented in this encounter Visit Diagnoses Not on filedocumented in this encounter Care Teams Ophthalmic Lens Inspector Relationship Specialty Start Date End Date Stephanie Castle MD [address] [place] [address] PCP - General Internal Medicine 04/06/23 Stephanie Thibodeaux MD [address] [place] [address] 4B_OB/ACETYLENE OPERATOR EULALIA ALAMO [address] Referring Physician Obstetrics and Gynecology 04/06/23 documented as of this encounter Additional Source Comments The information contained in this document represents components of the legal health record. It is not the complete legal health record.[facility]
--- OUTSIDE RECORDS SUMMARY | 2025-02-18 15:43 | XMS_ITS | Encounter Summary ---
Author Organization [facility] Address [address] [facility] [address] [place] [address] Phone Care Team Providers Care Retoucher Photoengraving Name Role Phone Stephanie Castle MD Primary Care Provider Stephanie Thibodeaux MD Unavailable [phone] Encounter Details Date Type Department Care Team (Late st Contact Info) Description 04/26/2023 Ancillary Orders Outside Imaging Alysia Elizabeth MD [address] [place] [phone] [email or web address] Social History Tobacco Use Types Packs/Day [...] INTERP RETATION Final Result Performing Organization Address City/State/[facility] Co de Phone Number [facility] documented in this encounter Visit Diagnoses Not on filedocumented in this encounter Care Teams Retoucher Photoengraving Relationship Specialty Start Date End Date Stephanie aCstle MD [address] [facility] [place] [address] PCP - General Internal Medicine 04/06/23 Stephanie Thibodeaux MD [facility] [address] 4B_OB/IT NETWORK ENGINEER EULALIA ALAMO [address] Referring Physician Obstetrics and Gynecology 04/06/23 documented as of this encounter Additional Source Comments The information contained in this document represents components of the legal health record. It is not the complete legal health record.[facility]
--- OUTSIDE RECORDS SUMMARY | 2025-02-18 15:43 | XMS_ITS | Clinical Summary ---
Author Organization [facility] Address [address] [place] [address] Phone Care Team Providers Care News Gathering Technician Name Role Phone Stephanie Castle MD Primary Care Provider Stephanie Thibodeaux MD Unavailable [phone] Allergies Active Allergy Reactions Criticality Noted Date [...] file Insurance MEDICARE PART A & B [employer] SUPPLEMENT MEDICARE PART A & B [employer] SUPPLEMENT MEDICARE PART A & B [employer] SUPPLEMENT MEDICARE PART A & B [employer] SUPPLEMENT MEDICARE PART A & B [employer] SUPPLEMENT MEDICARE PART A & B [employer] MEDEX SUPPLEMENT Care Teams News Gathering Technician Relationship Specialty Start Date End Date Stephanie Castle MD [facility] [place] [address] PCP - General Internal Medicine 04/06/23 Stephanie Thibodeaux MD [address] [place] [address] 4B_OB/SYNCHRONOUS [place] [address] Referring Physician Obstetrics and Gynecology 04/06/23 Additional Source Comments The information contained in this document represents components of the legal health record. It is not the complete legal health record.[facility]
--- OUTSIDE RECORDS SUMMARY | 2025-02-18 15:43 | XMS_ITS | Clinical Summary ---
Author Organization [facility] Address [address] [address] Phone Care Team Providers Care Consumer Attorney Name Role Phone Greg Castle MD Primary Care Provider [phone] Allergies Active Allergy Reactions Criticality Noted Date [...] age to complete this topic Insurance Medicare [facility] Care Teams Consumer Attorney Relationship Specialty Start Date End Date Greg Castle MD [address] [place] [address] PCP - General Internal Medicine 04/13/23
--- OUTSIDE RECORDS SUMMARY | 2025-02-18 15:43 | XMS_ITS | Patient Health Record ---
Author Organization [facility] Address [address] [place] [address] Care Team Providers Care Roofing Tile Sorter Name Role Phone Ramesh Ramírez Primary Care Provider Bj Pandya Unavailable [phone] Allergies Allergen (clinical drug ingredient) Drug/Non Drug [...] Problem Screening for malignant neoplasm of colon (163406192) Encounter for screening for malignant neoplasm of colon (Z12.11) Active confirmed Problem History of adenomatous polyp of colon (518891220) History of adenomatous polyp of colon (Z86.010) Active confirmed Problem Gastroesophageal reflux disease (946493668) Gastroesophageal reflux disease, esophagitis presence not specified (K21.9) Active confirmed Problem Family History of Cancer of Colon (Situation) (245418093) Family history of colon cancer (Z80.0) Active confirmed Plan Of Treatment Future Test Test Name Order Date UPPER GI ENDOSCOPY 07/02/2019 COLONOSCOPY 07/02/2019 Insurance Providers Payer Name Payer Address Payer Phone Subscriber Number Group Number Insured Name Patient Relationship to Insured Coverage Start Date Coverage End Date MEDICARE OF [place] [address] [place] [address] [id number] ALLY GENTILE Self - patient is the insured [employer] CLAIMS [address] [place] [address] [id number] ALLY GENTILE Self - patient is the insured Medical (General) History Medical History History ICD Code Denies MS,DM,CVA,Lung disease,renal dise ase Hypertension Immunoglobulin deficiency with [...]
== END ==
LOC: HO.CARD 12:26
PROVIDERS: PCP Internal Medicine; Visit Provider Hospitalist
DX: J44.9 Chronic obstructive pulmonary disease, unspecified (principal); D80.1 Nonfamilial hypogammaglobulinemia; R06.00 Dyspnea, unspecified
CPT/HCPCS: 93005

== ENCOUNTER → 2025-02-18 12:33 | Outpatient (BNV) | payer MEDICARE, SELFPAY | PROVIDERS: PCP Internal Medicine; Visit Provider Internal Medicine Cardiovascular Disease | DX: J44.9 Chronic obstructive pulmonary disease, unspecified (principal) | CPT/HCPCS: 93010 ==